=== PATIENT | male | born 1935 | race Caucasian/White ===

== ENCOUNTER 2017-04-04 09:40 | Emergency (ER) | payer MEDICARE, BC ==
[2017-04-04] MEDS ORDERED: Sodium Chloride 0.9% 10 ML Syringe FLUSH PRN (10:03)
[2017-04-04 10:24] VITALS: BP 162/81
[2017-04-04 10:42] LABS: CHLORIDE,CL 102 mmol/L (101-111); SODIUM,NA 140 mmol/L (135-145)
--- NOTE | 2017-04-04 11:01 | CR ---
Clinical history: 81-year-old male with left shoulder pain. 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 Cardiac pacemaker (leads intact) and sternotomy wires. Dense calcifications arch of the aorta. Normal cardiac silhouette without cephalization of vascular flow, signs of alveolar edema or dependen t pleural effusion. No lung mass, hilar lymphadenopathy or focal lobar pneumonia. No atelectasis/collapse. No pneumothora x. CONCLUSION: No acute cardiopulmonary abnormality. Arthritis.
--- NOTE | 2017-04-04 11:24 | CR ---
CLINICAL HISTORY: 81-year-old male with left shoulder pain. INTERPRETATION: Old healed fracture deformity mid left clavicle. Early reactive arthritic sclerosis i psilateral acromioclavicular joint. No sign of pathologic skeletal lesion, acute left shoulder fracture or glenohumeral dislocation (focal calcification at the insertion rotator cuff tendon lateral aspect of the humeral head). Left lung apex clear. Cardiac pacemaker.. CONCLUSION: Calcific rotator cuff tendinitis. Arthritis left AC joint and evidence of old healed frac ture deformity left clavicle.
--- NOTE | 2017-04-04 12:04 | EDM.PDOC ---
ED HPI GENERAL MEDICAL PROBLEM - General Chief Complaint: Upper Extremity Injury/Pain Stated Complaint: PAIN, LEFT SHOULDER AREA Time Seen by Provider: 04/04/17 10:25 Source of Information: Reports: Patient, RN, RN Notes Reviewed History Limitations: Reports: No Limitations - History of Present Illness INITIAL COMMENTS - FREE TEXT/NARRATIVE: Patient presents to the ER with c/o left shoulder pain that comes and goes. He denies any chest pain accompanying. He admits to a cardiac history including pacemaker placement and bypass x4. With the episodes of left shoulder pain, he denies sob, chest pain, diaphoresis, nausea or vomiting. Patient denies fever or chills. He does state that the pain comes and goes, and happens with turning the head or with movement. Son states that he did feel the patient was more weak than normal a few days ago, for which the patient attributes long aggressive days prior to that. Onset: Gradual Location: Reports: Upper Extremity, Left Quality: Reports: Sharp Improves with: Reports: None Worsens with: Reports: None Associated Symptoms: Reports: No Other Symptoms Left Shoulder Pain Score (Numeric/FACES): 5 - Related Data Allergies Allergy/AdvReac Type Severity Reaction Status Date / Time Iodinated Contrast- Oral and Allergy Cannot Verified 04/04/17 09:48 IV Dye Remember [Iodinated Contrast Media - IV Dye] niacin Allergy Cannot Verified 04/04/17 09:48 Remember Home Meds: Home Meds Digoxin [Digox] 250 mcg PO DAILY 12/29/14 [History] Glimepiride [Amaryl] 4 mg PO WITHBREAKFAST 12/29/14 [History] Metoprolol Succinate [Toprol XL] 100 mg PO DAILY 12/29/14 [History] Simvastatin [Zocor] 40 mg PO BEDTIME 12/29/14 [History] Warfarin [Coumadin] 5 mg PO DAILY 12/29/14 [History] metFORMIN [Glucophage] 1,000 mg PO BIDMEALS 12/29/14 [History] Finasteride [Proscar] 1 tab PO DAILY 03/16/16 [History] Tamsulosin [Flomax] 1 tab PO DAILY 03/16/16 [History] Aspirin [Halfprin] 1 tab PO DAILY 04/04/17 [History] Past Medical History HEENT History: Reports: Impaired Vision Cardiovascular History: Reports: Afib, CAD, High Cholesterol, Hypertension, Pacemaker Respiratory History: Reports: SOB Gastrointestinal History: Reports: GERD Genitourinary History: Reports: Chronic Renal Insuffiency, Prostate Disorder, Other (See Below) Other Genitourinary History: bladder spasms Musculoskeletal History: Reports: Osteoarthritis Neurological History: Reports: TIA Endocrine/Metabolic History: Reports: Diabetes, Type II Dermatologic History: Reports: Other (See Below) Other Dermatologic History: actinic keratosis - Infectious Disease History Infectious Disease History: Reports: Chicken Pox, Measles, Mumps - Past Surgical History HEENT Surgical History: Reports: Cataract Surgery Cardiovascular Surgical History: Reports: Coronary Artery Bypass Male Surgical History: Reports: Other (See Below) Other Male Surgeries/Procedures: cystourethroscopy, nephrolithiasis Social & Family History - Family History Family Medical History: Noncontributory - Tobacco Use Smoking Status *Q: Former Smoker Years of Tobacco use: 30 Used Tobacco, but Quit: Yes Month Tobacco Last Used: unknown Second Hand Smoke Exposure: No - Caffeine Use Caffeine Use: Reports: Coffee - Alcohol Use Days Per Week of Alcohol Use: 3 Number of Drinks Per Day: 3 Total Drinks Per Week: 9 - Recreational Drug Use Recreational Drug Use: No Review of Systems - Review of Systems Review Of Systems: ROS reveals no pertinent complaints other than HPI. Eyes: Reports: Glasses ED EXAM, GENERAL - Physical Exam Exam: See Below Exam Limited By: No Limitations General Appearance: Alert, WD/WN, No Apparent Distress Eye Exam: Bilateral Eye: Normal Inspection Ears: Normal External Exam, Normal Canal, Hearing Grossly Normal Nose: Normal Inspection, Normal Mucosa, No Blood Throat/Mouth: Normal Inspection, Normal Lips, Normal Teeth, Normal Gums, Normal Oropharynx, Normal Voice, No Airway Compromise Head: Atraumatic, Normocephalic Neck: Normal Inspection, Supple, Non-Tender, Full Range of Motion Respiratory/Chest: No Respiratory Distress, Lungs Clear, Normal Breath Sounds, No Accessory Muscle Use, Chest Non-Tender Cardiovascular: Normal Peripheral Pulses, No Edema, No Gallop, No JVD, No Murmur , No Rub Peripheral Pulses: 2+: Radial (L), Radial (R) GI/Abdominal: Normal Bowel Sounds, Soft, Non-Tender, No Organomegaly, No Distention, No Abnormal Bruit, No Mass, Pelvis Stable (Male) Exam: Deferred Rectal (Males) Exam: Deferred Back Exam: Normal Inspection, Full Range of Motion Extremities: Normal Inspection, Arm Pain (left), Limited Range of Motion Neurological: Alert, Oriented, Normal Cognition, Normal Gait, Normal Reflexes, No Motor/Sensory Deficits Psychiatric: Normal Affect, Normal Mood Skin Exam: Warm, Dry, Intact, Normal Color, No Rash Lymphatic: No Adenopathy EKG INTERPRETATION EKG Date: 04/04/17 Time: 10:03 Rhythm: A-Fib Course - Vital Signs Last Recorded V/S: Last Vital Signs Temp 97.4 F 04/04/17 10:22 Pulse 95 04/04/17 10:22 Resp 18 04/04/17 10:22 BP 162/81 H 04/04/17 10:22 Pulse Ox 97 04/04/17 10:22 - Orders/Labs/Meds Orders: Active Orders 24 hr Category Date Time Status EKG Documentation Completion [RC] STAT Care 04/04/17 10:04 Active Peripheral IV Care [RC] . DIRECTED Care 04/04/17 10:05 Active Peripheral IV Insertion Adult [OM.PC] Stat Oth 04/04/17 10:03 Ordered Labs: Laboratory Tests 04/04/17 04/04/17 04/04/17 Range/Units 10:13 10:13 10:13 WBC 6.9 (5.0-10.0) 10^3/uL RBC 5.14 (4.6-6.2) 10^6/uL Hgb 14.8 (14.0-18.0) g/dL Hct 45.1 (40.0-54.0) % MCV 87.7 (80-100) fL MCH 28.8 (27.0-34.0) pg MCHC 32.8 L (33.0-35.0) g/dL Plt Count 169 (150-450) 10^3/uL Neut % (Auto) 63.2 (42.2-75.2) % Lymph % (Auto) 23.5 (20.5-50.1) % [place] % (Auto) 10.7 H (2-8) % Eos % (Auto) 1.7 (1.0-3.0) % Baso % (Auto) 0.9 (0.0-1.0) % Sodium 140 (135-145) mmol/L Potassium 4.1 (3.6-5.0) mmol/L Chloride 102 (101-111) mmol/L Carbon Dioxide 26.0 (21.0-31.0) mmol/L Anion Gap 16.1 BUN 15 (7-18) mg/dL Creatinine 1.0 (0.6-1.3) mg/dL Est Cr Clr Drug Dosing 65.47 mL/min Estimated GFR (MDRD) > 60 BUN/Creatinine Ratio 15.00 Glucose 169 H (74-105) mg/dL Calcium 9.3 (8.4-10.2) mg/dl Total Bilirubin 0.7 (0.2-1.0) mg/dL AST 23 (10-42) IU/L ALT 19 (10-60) IU/L Alkaline Phosphatase 56 (42-121) IU/L Troponin I < 0.02 (0.00-0.02) ng/ml Total Protein 7.1 (6.7-8.2) g/dl Albumin 4.3 (3.2-5.5) g/dl Globulin 2.8 Albumin/Globulin Ratio 1.54 TSH, Ultra Sensitive 2.02 (0.45-5.33) uIu/mL Meds: Medications Discontinued Medications Generic Name Dose Route Start Last Admin Trade Name Freq PRN Reason Stop Dose Admin Sodium Chloride 10 ml 04/04/17 10:03 04/04/17 10:22 Saline Flush FLUSH 10 ml ASDIRECTED PRN Administration Keep Vein Open - Radiology Interpretation Free Text/Narrative:: Left shoulder xray: Calcific rotator cuff tendonitis. Arthritis L AC joint and evidence of old healed fx deformity left clavicle. Chest xray: no acute findings See rad report Departure - Departure Time of Disposition: 12:09 Disposition: Home, Self-Care 01 Condition: Good Clinical Impression: Left shoulder tendinitis, Other specified arthritis, left shoulder - Discharge Information Instructions: Shoulder Pain, [id number], Tendinitis, [id number] Referrals: Katherine Montoya PA [Primary Care Provider] - Forms: ED Department Discharge Additional Instructions: Follow up with Katherine Montoya NP at [facility]. MRI may be needed. - My Orders Last 24 Hours: My Active Orders 04/04/17 10:03 Peripheral IV Insertion Adult [OM.PC] Stat 04/04/17 10:04 EKG Documentation Completion [RC] STAT 04/04/17 10:05 Peripheral IV Care [RC] . DIRECTED - Assessment/Plan Last 24 Hours: My Active Orders 04/04/17 10:03 Peripheral IV Insertion Adult [OM.PC] Stat 04/04/17 10:04 EKG Documentation Completion [RC] STAT 04/04/17 10:05 Peripheral IV Care [RC] . DIRECTED
--- NOTE | 2017-04-26 13:17 | EKG ---
04/04/2017 - JASON MAYFIELD - TIME: 1003 FINDINGS: EKG shows atrial fibrillation with a heart rate of 86 per minute. Multiple premature ventricular and supraventricular complexes. [facility] /[id number]
== END 2017-04-04 12:21 | disposition home or self-care (01) ==
LOC: DL.ED 09:40
DX: M75.32 Calcific tendinitis of left shoulder (principal); M13.812 Other specified arthritis, left shoulder; I48.91 Unspecified atrial fibrillation; I25.10 Atherosclerotic heart disease of native coronary artery without angina pectoris; K21.9 Gastro-esophageal reflux disease without esophagitis; N18.9 Chronic kidney disease, unspecified; E11.22 Type 2 diabetes mellitus with diabetic chronic kidney disease; I12.9 Hypertensive chronic kidney disease with stage 1 through stage 4 chronic kidney disease, or unspecified chronic kidney disease; M19.90 Unspecified osteoarthritis, unspecified site; Z91.041 Radiographic dye allergy status; Z88.8 Allergy status to other drugs, medicaments and biological substances; Z79.899 Other long term (current) drug therapy; Z79.82 Long term (current) use of aspirin; Z79.01 Long term (current) use of anticoagulants; Z95.1 Presence of aortocoronary bypass graft; Z98.49 Cataract extraction status, unspecified eye; Z87.891 Personal history of nicotine dependence
CPT/HCPCS: 36415; 71020; 73030; 80053; 84443; 84484; 85025; 93005; 93010; 99284; J7050

== ENCOUNTER 2017-06-09 08:20 | Emergency (ER) | payer MEDICARE, BC ==
--- NOTE | 2017-06-09 08:23 | EDM.PDOC ---
ED HPI GENERAL MEDICAL PROBLEM - General Chief Complaint: ENT Problem Stated Complaint: NOSE BLEED Time Seen by Provider: 06/09/17 08:34 Source of Information: Reports: Patient, RN, RN Notes Reviewed - History of Present Illness INITIAL COMMENTS - FREE TEXT/NARRATIVE: Pt presents to the ER with c/o a nosebleed since 0700 today. He states he was laying in bed and felt the blood trickling down his nose. He denies blowing/ picking the nose. He states he is on coumadin and last INR was drawn 05/25/17 and was 2.5. He states he had a nosebleed about 3 days ago, but that stopped without problems. Onset: Today, Sudden Onset Date: 06/09/17 Onset Time: 07:00 - Related Data Allergies Allergy/AdvReac Type Severity Reaction Status Date / Time Iodinated Contrast- Oral and Allergy Cannot Verified 04/04/17 09:48 IV Dye Remember [Iodinated Contrast Media - IV Dye] niacin Allergy Cannot Verified 04/04/17 09:48 Remember Home Meds: Home Meds Digoxin [Digox] 250 mcg PO DAILY 12/29/14 [History] Glimepiride [Amaryl] 4 mg PO WITHBREAKFAST 12/29/14 [History] Metoprolol Succinate [Toprol XL] 100 mg PO DAILY 12/29/14 [History] Simvastatin [Zocor] 20 mg PO BEDTIME 12/29/14 [History] Warfarin [Coumadin] 2.5 mg PO DAILY 12/29/14 [History] metFORMIN [Glucophage] 500 mg PO BIDMEALS 12/29/14 [History] Finasteride [Proscar] 1 tab PO DAILY 03/16/16 [History] Tamsulosin [Flomax] 1 tab PO BEDTIME 03/16/16 [History] Aspirin [Halfprin] 1 tab PO DAILY 04/04/17 [History] Glimepiride [Amaryl] 1 mg PO DAILY 06/09/17 [History] Past Medical History HEENT History: Reports: Impaired Vision Cardiovascular History: Reports: Afib, CAD, High Cholesterol, Hypertension, Pacemaker Respiratory History: Reports: SOB Gastrointestinal History: Reports: GERD Genitourinary History: Reports: Chronic Renal Insuffiency, Prostate Disorder, Other (See Below) Other Genitourinary History: bladder spasms Musculoskeletal History: Reports: Osteoarthritis Neurological History: Reports: TIA Endocrine/Metabolic History: Reports: Diabetes, Type II Dermatologic History: Reports: Other (See Below) Other Dermatologic History: actinic keratosis - Infectious Disease History Infectious Disease History: Reports: Chicken Pox, Measles, Mumps - Past Surgical History HEENT Surgical History: Reports: Cataract Surgery Cardiovascular Surgical History: Reports: Coronary Artery Bypass Male Surgical History: Reports: Other (See Below) Other Male Surgeries/Procedures: cystourethroscopy, nephrolithiasis Social & Family History - Family History Family Medical History: Noncontributory - Tobacco Use Smoking Status *Q: Former Smoker Years of Tobacco use: 30 Used Tobacco, but Quit: Yes Month Tobacco Last Used: unknown Second Hand Smoke Exposure: No - Caffeine Use Caffeine Use: Reports: Coffee - Alcohol Use Days Per Week of Alcohol Use: 3 Number of Drinks Per Day: 3 Total Drinks Per Week: 9 - Recreational Drug Use Recreational Drug Use: No ED ROS ENT - Review of Systems Review Of Systems: ROS reveals no pertinent complaints other than HPI. ED EXAM, ENT - Physical Exam Exam: See Below Exam Limited By: No Limitations General Appearance: Alert, WD/WN, No Apparent Distress Eye Exam: Bilateral Eye: EOMI, Normal Inspection Ears: Normal External Exam, Hearing Grossly Normal Nose: Active Bleeding (right nostril\), Dried Blood, Injected Turbinates. No: Normal Mucousa, No Blood Mouth/Throat: Normal Inspection Head: Atraumatic, Normocephalic Neck: Normal Inspection, Supple, Non-Tender, Full Range of Motion Respiratory/Chest: No Respiratory Distress, Lungs Clear, Normal Breath Sounds, No Accessory Muscle Use, Chest Non-Tender Cardiovascular: Normal Peripheral Pulses, No Edema, No Gallop, No JVD, No Murmur , No Rub, Irregularly Irregular GI/Abdominal: Normal Bowel Sounds, Soft, Non-Tender (Male) Exam: Deferred Rectal (Males) Exam: Deferred Back: Normal Inspection, Full Range of Motion Extremities: Normal Inspection, Normal Range of Motion, Non-Tender, No Pedal Edema, Normal Capillary Refill Neurological: Alert, Oriented, Normal Cognition, Normal Gait, No Motor/Sensory Deficits Psychiatric: Normal Affect, Normal Mood Skin: Warm, Dry, Intact, Normal Color, No Rash Lymphatic: No Adenopathy Course - Vital Signs Last Recorded V/S: Last Vital Signs Temp 98.4 F 06/09/17 08:34 Pulse 98 06/09/17 08:34 Resp 16 06/09/17 08:34 BP 171/81 H 06/09/17 08:34 Pulse Ox 97 06/09/17 08:34 - Orders/Labs/Meds Labs: Laboratory Tests 06/09/17 06/09/17 06/09/17 Range/Units 08:40 08:40 08:40 WBC 6.7 (5.0-10.0) 10^3/uL RBC 5.07 (4.6-6.2) 10^6/uL Hgb 14.5 (14.0-18.0) g/dL Hct 44.2 (40.0-54.0) % MCV 87.2 (80-100) fL MCH 28.6 (27.0-34.0) pg MCHC 32.8 L (33.0-35.0) g/dL Plt Count 135 L (150-450) 10^3/uL Neut % (Auto) 62.4 (42.2-75.2) % Lymph % (Auto) 21.8 (20.5-50.1) % [place] % (Auto) 12.2 H (2-8) % Eos % (Auto) 3.0 (1.0-3.0) % Baso % (Auto) 0.6 (0.0-1.0) % PT 17.6 H D (9.0-12.0) SEC INR 1.7 H (0.9-1.2) Sodium 139 (135-145) mmol/L Potassium 4.0 (3.6-5.0) mmol/L Chloride 101 (101-111) mmol/L Carbon Dioxide 28.0 (21.0-31.0) mmol/L Anion Gap 14.0 BUN 13 (7-18) mg/dL Creatinine 1.0 (0.6-1.3) mg/dL Est Cr Clr Drug Dosing 63.59 mL/min Estimated GFR (MDRD) > 60 BUN/Creatinine Ratio 13.00 Glucose 154 H (74-105) mg/dL Calcium 9.3 (8.4-10.2) mg/dl Total Bilirubin 0.5 (0.2-1.0) mg/dL AST 19 (10-42) IU/L ALT 14 (10-60) IU/L Alkaline Phosphatase 58 (42-121) IU/L Total Protein 7.2 (6.7-8.2) g/dl Albumin 4.2 (3.2-5.5) g/dl Globulin 3.0 Albumin/Globulin Ratio 1.40 Meds: Medications Discontinued Medications Generic Name Dose Route Start Last Admin Trade Name [place] PRN Reason Stop Dose Admin Lidocaine/Epinephrine 20 ml 06/09/17 09:17 06/09/17 09:22 Xylocaine 1% With Epinephrine 1:100,000 INJECT 06/09/17 09:18 20 ml ONETIME ONE Administration Oxymetazoline HCl 1 ml 06/09/17 09:17 06/09/17 09:22 Afrin Original 0.05% Nasal [place] KAYLA 06/09/17 09:18 2 spray ONETIME ONE Administration Departure - Departure Time of Disposition: 09:38 Disposition: Home, Self-Care 01 Condition: Good Clinical Impression: Epistaxis - Discharge Information Instructions: Nosebleed, [id number] Referrals: Katherine Montoya PA [Primary Care Provider] - Forms: ED Department Discharge Additional Instructions: Make an appointment to see Katherine Montoya NP Call Cardiology today to discuss your INR today, nosebleeds. INR today was 1.7 RX: Afrin with lidocaine/epi 1%: 2 sprays to the bleeding nostril as needed. May use up to 4 times per day. Small amounts of vaseline to the nares to keep moist. Begin using your humidifier in the home.
[2017-06-09 08:36] VITALS: BP 171/81
[2017-06-09 09:07] LABS: CHLORIDE,CL 101 mmol/L (101-111); SODIUM,NA 139 mmol/L (135-145)
[2017-06-09] MEDS ORDERED: Lidocaine 1% with EPINEPHrine 1:100,000 20 ML MDV INJECT ONE (09:17)
[2017-06-09] MEDS ORDERED: Oxymetazoline 0.05% Nasal Spray 15 ML Bottle NAS ONE (09:17)
[2017-06-09] MEDS ORDERED: Silver Nitrate Applicator Each TOP ONE (09:58)
== END 2017-06-09 11:51 | disposition home or self-care (01) ==
LOC: DL.ED 08:20
DX: R04.0 Epistaxis (principal); I12.9 Hypertensive chronic kidney disease with stage 1 through stage 4 chronic kidney disease, or unspecified chronic kidney disease; E11.22 Type 2 diabetes mellitus with diabetic chronic kidney disease; N18.9 Chronic kidney disease, unspecified; E78.00 Pure hypercholesterolemia, unspecified; I25.10 Atherosclerotic heart disease of native coronary artery without angina pectoris; Z87.891 Personal history of nicotine dependence; Z79.82 Long term (current) use of aspirin; Z79.01 Long term (current) use of anticoagulants; Z79.899 Other long term (current) drug therapy; Z79.84 Long term (current) use of oral hypoglycemic drugs; Z91.041 Radiographic dye allergy status; Z88.8 Allergy status to other drugs, medicaments and biological substances
CPT/HCPCS: 36415; 80053; 85025; 85610; 99283; A9270

== ENCOUNTER 2017-11-27 00:35 | Emergency (ER) | payer MEDICARE, BC ==
[2017-11-27] MEDS ORDERED: Lidocaine 1% 30 ML SDV INJECT ONE (00:51)
--- NOTE | 2017-11-27 01:07 | EDM.PDOC ---
ED HPI GENERAL MEDICAL PROBLEM - General Chief Complaint: Trauma Stated Complaint: FALL CUT ON HEAD BLEEDING Time Seen by Provider: 11/27/17 01:02 Source of Information: Reports: Patient, Family History Limitations: Reports: No Limitations - History of Present Illness INITIAL COMMENTS - FREE TEXT/NARRATIVE: pt states got up to go to bathroom and tripped hitting head on edge of door way. denies LOC but did feel little dazed for a moment and bit unsteady, denies N/V only pain on forehead. states did fall to floor then got back up by self and called [id number] who states pt was conscious when arrived and seemed ok. denies seeing him unsteady then drove to ER. - Related Data Allergies Allergy/AdvReac Type Severity Reaction Status Date / Time Iodinated Contrast- Oral and Allergy Cannot Verified 11/27/17 00:50 IV Dye Remember [Iodinated Contrast Media - IV Dye] niacin Allergy Cannot Verified 11/27/17 00:50 Remember Home Meds: Home Meds Digoxin [Digox] 250 mcg PO DAILY 12/29/14 [History] Glimepiride [Amaryl] 4 mg PO WITHBREAKFAST 12/29/14 [History] Metoprolol Succinate [Toprol XL] 100 mg PO DAILY 12/29/14 [History] Simvastatin [Zocor] 20 mg PO BEDTIME 12/29/14 [History] Warfarin [Coumadin] 2.5 mg PO DAILY 12/29/14 [History] metFORMIN [Glucophage] 500 mg PO BIDMEALS 12/29/14 [History] Finasteride [Proscar] 1 tab PO DAILY 03/16/16 [History] Tamsulosin [Flomax] 1 tab PO BEDTIME 03/16/16 [History] Aspirin [Halfprin] 1 tab PO DAILY 04/04/17 [History] Glimepiride [Amaryl] 1 mg PO DAILY 06/09/17 [History] Past Medical History HEENT History: Reports: Impaired Vision Cardiovascular History: Reports: Afib, CAD, High Cholesterol, Hypertension, Pacemaker Respiratory History: Reports: SOB Gastrointestinal History: Reports: GERD Genitourinary History: Reports: Chronic Renal Insuffiency, Prostate Disorder, Other (See Below) Other Genitourinary History: bladder spasms Musculoskeletal History: Reports: Osteoarthritis Neurological History: Reports: TIA Endocrine/Metabolic History: Reports: Diabetes, Type II Dermatologic History: Reports: Other (See Below) Other Dermatologic History: actinic keratosis - Infectious Disease History Infectious Disease History: Reports: Chicken Pox, Measles, Mumps - Past Surgical History HEENT Surgical History: Reports: Cataract Surgery Cardiovascular Surgical History: Reports: Coronary Artery Bypass Male Surgical History: Reports: Other (See Below) Other Male Surgeries/Procedures: cystourethroscopy, nephrolithiasis Social & Family History - Family History Family Medical History: Noncontributory - Caffeine Use Caffeine Use: Reports: Coffee Review of Systems - Review of Systems Review Of Systems: ROS reveals no pertinent complaints other than HPI. ED EXAM, GENERAL - Physical Exam Exam: See Below Exam Limited By: No Limitations General Appearance: Alert, WD/WN, Mild Distress, Other (headache) Eye Exam: Bilateral Eye: PERRL (pupils ER @ 4mm) Ears: Hearing Grossly Normal Throat/Mouth: Normal Voice, No Airway Compromise Head: Other (3" forehead lac. no O/B.) Neck: Non-Tender, Full Range of Motion, Other (c/o feeling litte stiff.) Respiratory/Chest: No Respiratory Distress Cardiovascular: Regular Rate, Rhythm GI/Abdominal: Soft, Non-Tender Neurological: Alert, Oriented, Normal Cognition, Normal Gait, No Motor/Sensory Deficits Psychiatric: Flat Affect Skin Exam: Warm, Dry, Normal Color Lymphatic: No Adenopathy ED TRAUMA PROCEDURES - Laceration/Wound Repair Forehead Lac/Wound Length In cm: 6 (mid forehead) Appearance: Subcutaneous, Linear, Clean Anesthetic Type: Local Local Anesthesia - Lidocaine (Xylocaine): 1% Plain Local Anesthetic Volume: 5cc Skin Prep: Chlorhexidine (Hibiciens) Exploration/Debridement/Repair: Wound Explored, No Foreign Material Found Closed With: Sutures Suture Size: 3-0 Suture Type: Nylon, Interrupted Sterile Dressing Applied: None Tetanus Status Addressed: Yes Complications: No Course - Orders/Labs/Meds Labs: Laboratory Tests 11/27/17 11/27/17 11/27/17 Range/Units 00:40 00:40 00:40 WBC 9.8 (5.0-10.0) 10^3/uL RBC 5.09 (4.6-6.2) 10^6/uL Hgb 14.2 (14.0-18.0) g/dL Hct 43.7 (40.0-54.0) % MCV 85.9 (80-100) fL MCH 27.9 (27.0-34.0) pg MCHC 32.5 L (33.0-35.0) g/dL Plt Count 179 (150-450) 10^3/uL Neut % (Auto) 56.4 (42.2-75.2) % Lymph % (Auto) 30.3 (20.5-50.1) % [place] % (Auto) 9.8 H (2-8) % Eos % (Auto) 3.0 (1.0-3.0) % Baso % (Auto) 0.5 (0.0-1.0) % PT 22.0 H (9.0-12.0) SEC INR 2.3 H (0.9-1.2) Sodium 137 (135-145) mmol/L Potassium 3.9 (3.6-5.0) mmol/L Chloride 101 (101-111) mmol/L Carbon Dioxide 28.0 (21.0-31.0) mmol/L Anion Gap 11.9 BUN 13 (7-18) mg/dL Creatinine 1.1 (0.6-1.3) mg/dL Est Cr Clr Drug Dosing TNP Estimated GFR (MDRD) > 60 BUN/Creatinine Ratio 11.81 Glucose 119 H (74-105) mg/dL Calcium 9.5 (8.4-10.2) mg/dl Total Bilirubin 0.3 (0.2-1.0) mg/dL AST 24 (10-42) IU/L ALT 18 (10-60) IU/L Alkaline Phosphatase 62 (42-121) IU/L Total Protein 7.0 (6.7-8.2) g/dl Albumin 4.0 (3.2-5.5) g/dl Globulin 3.0 Albumin/Globulin Ratio 1.33 Meds: Medications Discontinued Medications Generic Name Dose Route Start Last Admin Trade Name Freq PRN Reason Stop Dose Admin Lidocaine HCl 30 ml 11/27/17 00:51 11/27/17 00:55 Xylocaine-Mpf 1% INJECT 11/27/17 00:52 30 ml ONETIME ONE Administration - Re-Assessments/Exams Free Text/Narrative Re-Assessment/Exam: 11/27/17 01:33 results discussed with pt & family. pt has no c/o and feels fine. Departure - Departure Time of Disposition: 01:34 Disposition: Home, Self-Care 01 Clinical Impression: Concussion Qualifiers: Encounter type: initial encounter Loss of consciousness presence/duration: without LOC Qualified Code(s): S06.0X0A - Concussion without loss of consciousness, initial encounter Laceration of forehead without complication Qualifiers: Encounter type: initial encounter Qualified Code(s): S01.81XA - Laceration without foreign body of other part of head, initial encounter - Discharge Information Instructions: Head Injury, Adult, [id number] Referrals: Katherine Montoya PA [Primary Care Provider] - Forms: ED Department Discharge Additional Instructions: 1) keep wound clean dry 2) suture removal 10 days 3) wound check if looks infected 4) must return if thee is any change or concern 5) take tyelnol as needed for headache
[2017-11-27 01:09] LABS: CHLORIDE,CL 101 mmol/L (101-111); SODIUM,NA 137 mmol/L (135-145)
== END 2017-11-27 01:43 | disposition home or self-care (01) ==
LOC: EEVIPCON 00:35 → DL.ED 00:35
DX: S06.0X0A Concussion without loss of consciousness, initial encounter (principal); S01.81XA Laceration without foreign body of other part of head, initial encounter; E78.00 Pure hypercholesterolemia, unspecified; I10 Essential (primary) hypertension; N18.9 Chronic kidney disease, unspecified; E11.22 Type 2 diabetes mellitus with diabetic chronic kidney disease; Z91.041 Radiographic dye allergy status; Z79.899 Other long term (current) drug therapy; Z79.84 Long term (current) use of oral hypoglycemic drugs; Z79.01 Long term (current) use of anticoagulants; Z79.82 Long term (current) use of aspirin; W01.118A Fall on same level from slipping, tripping and stumbling with subsequent striking against other sharp object, initial encounter
CPT/HCPCS: 12014; 36415; 70450; 72125; 80053; 85025; 85610; 99282; 99284

== ENCOUNTER 2017-12-06 07:31 | Inpatient (IN) | payer MEDICARE, BC ==
--- NOTE | 2017-12-06 08:25 | EDM.PDOC ---
ED HPI GENERAL MEDICAL PROBLEM - General Chief Complaint: General Stated Complaint: WEAK Time Seen by Provider: 12/06/17 07:45 Source of Information: Reports: Patient History Limitations: Reports: No Limitations - History of Present Illness INITIAL COMMENTS - FREE TEXT/NARRATIVE: This 82 yo male patient reports to the ED with a 2 day history of increased weakness and shortness of breath. The patient reports that he fell about 9 days ago, but did not start having symptoms until yesterday. The patient reports some intermittent chest pains, but currently has no chest pain. The patient reports his chest pain has been in the lower ribs. The patient reports he has been having some coughing, but the coughing resolves after taking some cough medication. Onset Date: 12/05/17 Duration: Day(s): (2), Constant, Getting Worse Location: Reports: Chest Quality: Reports: Other Severity: Moderate Improves with: Reports: Rest Worsens with: Reports: Movement Associated Symptoms: Reports: Shortness of Breath Chest Pain Score (Numeric/FACES): 2 - Related Data Allergies Allergy/AdvReac Type Severity Reaction Status Date / Time Iodinated Contrast- Oral and Allergy Cannot Verified 12/06/17 07:53 IV Dye Remember [Iodinated Contrast Media - IV Dye] niacin Allergy Cannot Verified 12/06/17 07:53 Remember Home Meds: Home Meds Digoxin [Digox] 250 mcg PO DAILY 12/29/14 [History] Glimepiride [Amaryl] 4 mg PO WITHBREAKFAST 12/29/14 [History] Metoprolol Succinate [Toprol XL] 100 mg PO DAILY 12/29/14 [History] Simvastatin [Zocor] 20 mg PO BEDTIME 12/29/14 [History] Warfarin [Coumadin] 2.5 mg PO DAILY 12/29/14 [History] metFORMIN [Glucophage] 500 mg PO BIDMEALS 12/29/14 [History] Finasteride [Proscar] 1 tab PO DAILY 03/16/16 [History] Tamsulosin [Flomax] 1 tab PO BEDTIME 03/16/16 [History] Aspirin [Halfprin] 1 tab PO DAILY 04/04/17 [History] Glimepiride [Amaryl] 1 mg PO DAILY 06/09/17 [History] Amiodarone [Cordarone] 200 mg PO BID 05/30/18 [History] Past Medical History HEENT History: Reports: Impaired Vision Cardiovascular History: Reports: Afib, CAD, High Cholesterol, Hypertension, Pacemaker Respiratory History: Reports: SOB Gastrointestinal History: Reports: GERD Genitourinary History: Reports: Chronic Renal Insuffiency, Prostate Disorder, Other (See Below) Other Genitourinary History: bladder spasms Musculoskeletal History: Reports: Osteoarthritis Neurological History: Reports: TIA Endocrine/Metabolic History: Reports: Diabetes, Type II Dermatologic History: Reports: Other (See Below) Other Dermatologic History: actinic keratosis - Infectious Disease History Infectious Disease History: Reports: Chicken Pox, Measles, Mumps - Past Surgical History HEENT Surgical History: Reports: Cataract Surgery Cardiovascular Surgical History: Reports: Coronary Artery Bypass Male Surgical History: Reports: Other (See Below) Other Male Surgeries/Procedures: cystourethroscopy, nephrolithiasis Social & Family History - Family History Family Medical History: Noncontributory - Caffeine Use Caffeine Use: Reports: Coffee ED ROS GENERAL - Review of Systems Review Of Systems: ROS reveals no pertinent complaints other than HPI. ED EXAM, GENERAL - Physical Exam Exam: See Below Exam Limited By: No Limitations General Appearance: Alert, WD/WN, Moderate Distress Eye Exam: Bilateral Eye: EOMI, Normal Inspection, PERRL Ears: Normal External Exam, Normal Canal, Hearing Grossly Normal, Normal TMs Nose: Normal Inspection, Normal Mucosa, No Blood Throat/Mouth: Normal Inspection, Normal Lips, Normal Teeth, Normal Gums, Normal Oropharynx, Normal Voice, No Airway Compromise Head: Atraumatic, Normocephalic Neck: Normal Inspection, Supple, Non-Tender, Full Range of Motion Respiratory/Chest: Lungs Clear, No Accessory Muscle Use, Chest Non-Tender, Decreased Breath Sounds, Rhonchi Cardiovascular: Normal Peripheral Pulses, Regular Rate, Rhythm, No Edema, No Gallop, No JVD, No Murmur, No Rub GI/Abdominal: Normal Bowel Sounds, Soft, Non-Tender, No Organomegaly, No Distention, No Abnormal Bruit, No Mass (Male) Exam: Deferred Rectal (Males) Exam: Deferred Back Exam: Normal Inspection, Full Range of Motion, NT Extremities: Normal Inspection, Normal Range of Motion, Non-Tender, Normal Capillary Refill, No Pedal Edema Neurological: Alert, Oriented, CN II-XII Intact, Normal Cognition, Normal Gait, Normal Reflexes, No Motor/Sensory Deficits Psychiatric: Normal Affect, Normal Mood Skin Exam: Warm, Dry, Intact, Normal Color, No Rash Lymphatic: No Adenopathy Course - Vital Signs Last Recorded V/S: Last Vital Signs Temp 36.0 C 12/06/17 07:38 Pulse 74 12/06/17 07:38 Resp 18 12/06/17 07:38 BP 191/74 H 12/06/17 07:38 Pulse Ox 79 L 12/06/17 07:38 - Orders/Labs/Meds Orders: Active Orders 24 hr Category Date Time Status EKG Documentation Completion [RC] URGENT Care 12/06/17 07:39 Active UA W/MICROSCOPIC [URIN] Stat Lab 12/06/17 07:39 Ordered Labs: Laboratory Tests 12/06/17 12/06/17 12/06/17 Range/Units 07:54 07:54 07:54 WBC 10.7 H (5.0-10.0) 10^3/uL RBC 4.94 (4.6-6.2) 10^6/uL Hgb 13.8 L (14.0-18.0) g/dL Hct 43.5 (40.0-54.0) % MCV 88.1 (80-100) fL MCH 27.9 (27.0-34.0) pg MCHC 31.7 L (33.0-35.0) g/dL Plt Count 183 (150-450) 10^3/uL Neut % (Auto) 80.7 H (42.2-75.2) % Lymph % (Auto) 10.3 L (20.5-50.1) % [place] % (Auto) 8.6 H (2-8) % Eos % (Auto) 0.2 L (1.0-3.0) % Baso % (Auto) 0.2 (0.0-1.0) % PT (9.0-12.0) SEC INR (0.9-1.2) D-Dimer, Quantitative (0-400) ng/mL Sodium 135 (135-145) mmol/L Potassium 4.4 (3.6-5.0) mmol/L Chloride 100 L (101-111) mmol/L Carbon Dioxide 27.0 (21.0-31.0) mmol/L Anion Gap 12.4 BUN 16 (7-18) mg/dL Creatinine 1.0 (0.6-1.3) mg/dL Est Cr Clr Drug Dosing 64.36 mL/min Estimated GFR (MDRD) > 60 BUN/Creatinine Ratio 16.00 Glucose 246 H (74-105) mg/dL Calcium 9.2 (8.4-10.2) mg/dl Total Bilirubin 1.2 H (0.2-1.0) mg/dL AST 26 (10-42) IU/L ALT 23 (10-60) IU/L Alkaline Phosphatase 65 (42-121) IU/L Troponin I < 0.02 (0.00-0.02) ng/ml B-Natriuretic Peptide 287 H (0-100) pg/ml Total Protein 7.0 (6.7-8.2) g/dl Albumin 4.0 (3.2-5.5) g/dl Globulin 3.0 Albumin/Globulin Ratio 1.33 12/06/17 12/06/17 Range/Units 07:54 07:54 WBC (5.0-10.0) 10^3/uL RBC (4.6-6.2) 10^6/uL Hgb (14.0-18.0) g/dL Hct (40.0-54.0) % MCV (80-100) fL MCH (27.0-34.0) pg MCHC (33.0-35.0) g/dL Plt Count (150-450) 10^3/uL Neut % (Auto) (42.2-75.2) % Lymph % (Auto) (20.5-50.1) % [place] % (Auto) (2-8) % Eos % (Auto) (1.0-3.0) % Baso % (Auto) (0.0-1.0) % PT 44.9 H D (9.0-12.0) SEC INR 4.7 H (0.9-1.2) D-Dimer, Quantitative 518 H (0-400) ng/mL Sodium (135-145) mmol/L Potassium (3.6-5.0) mmol/L Chloride (101-111) mmol/L Carbon Dioxide (21.0-31.0) mmol/L Anion Gap BUN (7-18) mg/dL Creatinine (0.6-1.3) mg/dL Est Cr Clr Drug Dosing mL/min Estimated GFR (MDRD) BUN/Creatinine Ratio Glucose (74-105) mg/dL Calcium (8.4-10.2) mg/dl Total Bilirubin (0.2-1.0) mg/dL AST (10-42) IU/L ALT (10-60) IU/L Alkaline Phosphatase (42-121) IU/L Troponin I (0.00-0.02) ng/ml B-Natriuretic Peptide (0-100) pg/ml Total Protein (6.7-8.2) g/dl Albumin (3.2-5.5) g/dl Globulin Albumin/Globulin Ratio Departure - Departure Time of Disposition: 09:19 Disposition: Admitted As Inpatient 66 Condition: Fair Clinical Impression: Elevated INR CHF (congestive heart failure) Qualifiers: Heart failure type: unspecified Heart failure chronicity: acute Qualified Code( s): I50.9 - Heart failure, unspecified - Discharge Information Referrals: Katherine Montoya PA [Primary Care Provider] - Forms: ED Department Discharge Care Plan Goals: Discussed the examination, history, lab, EKG and x-ray results with Dr. Paige. Dr. Paige accepted the patient for continued evaluation and management as an inpatient at [facility]. - My Orders Last 24 Hours: My Active Orders 12/06/17 07:39 EKG Documentation Completion [RC] URGENT UA W/MICROSCOPIC [URIN] Stat - Assessment/Plan Last 24 Hours: My Active Orders 12/06/17 07:39 EKG Documentation Completion [RC] URGENT UA W/MICROSCOPIC [URIN] Stat
[2017-12-06 08:32] LABS: CHLORIDE,CL 100 mmol/L (101-111); SODIUM,NA 135 mmol/L (135-145)
--- NOTE | 2017-12-06 08:49 | CR ---
Clinical history: 82-year-old male with history atrial fibrillation and now shortness of breath. Abno rmally elevated BNP. Normal WBC. Interpretation: Cardiac silhouette is normal and unchanged except for technique and compared to the P A film of March 2017 where there is generalized new pulmonary venous congestion with cephalizatio n suggesting mild cardiovascular decompensation. No alveolar edema or dependent pleural fluid accumulation. Cardiac pacemaker leads intact this patien t with sternotomy wires. No new lung mass, hilar lymphadenopathy or focal lobar pneumonia. CONCLUSION: Early CHF.
[2017-12-06] MEDS: Amiodarone 200 MG Tab PO SCH ×2 (12:34→21:30)
[2017-12-06] MEDS: Finasteride 5 MG Tab PO SCH (12:34)
[2017-12-06] MEDS: Tamsulosin 0.4 MG Cap.ER PO SCH (12:34)
[2017-12-06] MEDS: amLODIPine 5 MG Tab PO SCH (12:36)
[2017-12-06] MEDS: Aspirin 81 MG Tab.EC PO SCH (12:37)
[2017-12-06] MEDS: Insulin Aspart 100 Units/ML 3 ML Pen SUBCUT SCH ×2 (12:37→17:45)
[2017-12-06] MEDS: Furosemide 40 MG/4 ML VIAL IVPUSH SCH ×2 (12:39→17:47)
[2017-12-06] MEDS: Sodium Chloride 0.9% 10 ML Syringe FLUSH PRN ×3 (12:39→21:36)
--- NOTE | 2017-12-06 15:42 | PCM.HP ---
H&P History of Present Illness - General Date of Service: 12/06/17 Admit Problem/Dx: Admission Diagnosis/Problem Admission Diagnosis/Problem Acute respiratory failure Source of Information: Patient History Limitations: Reports: No Limitations - History of Present Illness Initial Comments - Free Text/Narative: 82-year-old male with past medical history of hypertension, type 2 diabetes and oral medication, atrial fibrillation on chronic anticoagulation, benign prostatic hyperplasia, who presents with shortness of breath, dizziness. The patient developed sudden onset of shortness of breath this morning. He also reports lightheadedness. He had no chest pain, no palpitations, no abdominal pain, no urinary symptoms. In the ED, his systolic blood pressure was in the 190s. He was also hypoxic in the low 70s and high 80s on room air. Chest x-ray showed pulmonary congestion. BNP was mildly elevated. The patient's blood pressure improved, but the time he got to the general medical floor, his systolic blood pressure was in the 150s Onset of Symptoms: Reports: Today Associated Symptoms: Reports: Shortness of Breath Chest Pain Score (Numeric/FACES): 2 - Related Data Allergies/Adverse Reactions: Allergies Allergy/AdvReac Type Severity Reaction Status Date / Time Iodinated Contrast- Oral and Allergy Cannot Verified 12/06/17 10:06 IV Dye Remember [Iodinated Contrast Media - IV Dye] niacin Allergy Cannot Verified 12/06/17 10:06 Remember Home Medications: Home Meds Glimepiride [Amaryl] 4 mg PO WITHBREAKFAST 12/29/14 [History] Metoprolol Succinate [Toprol XL] 100 mg PO BEDTIME 12/29/14 [History] metFORMIN [Glucophage] 500 mg PO BIDMEALS 12/29/14 [History] Finasteride [Proscar] 5 mg PO DAILY 03/16/16 [History] Tamsulosin [Flomax] 0.4 mg PO DAILY 03/16/16 [History] Aspirin [Halfprin] 81 mg PO DAILY 04/04/17 [History] Amiodarone [Cordarone] 200 mg PO BID 12/06/17 [History] Metoprolol Succinate [Toprol XL] 25 mg PO BEDTIME 12/06/17 [History] Simvastatin [Zocor] 20 mg PO BEDTIME 12/06/17 [History] Warfarin [Coumadin] 1.25 mg PO .MOWEDFRI 12/06/17 [History] Warfarin [Coumadin] 2.5 mg PO .TUTHUSATSUN 12/06/17 [History] Past Medical History HEENT History: Reports: Cataract, Impaired Vision Cardiovascular History: Reports: Afib, CAD, High Cholesterol, Hypertension, Pacemaker Respiratory History: Reports: SOB Gastrointestinal History: Reports: GERD Genitourinary History: Reports: Chronic Renal Insuffiency, Prostate Disorder, Other (See Below) Other Genitourinary History: bladder spasms Musculoskeletal History: Reports: Fracture, Osteoarthritis Neurological History: Reports: TIA Endocrine/Metabolic History: Reports: Diabetes, Type II Dermatologic History: Reports: Other (See Below) Other Dermatologic History: actinic keratosis - Infectious Disease History Infectious Disease History: Reports: Chicken Pox, Measles, Mumps, Shingles - Past Surgical History HEENT Surgical History: Reports: Adenoidectomy, Cataract Surgery, Tonsillectomy Cardiovascular Surgical History: Reports: Coronary Artery Bypass GI Surgical History: Reports: None Male Surgical History: Reports: Other (See Below) Other Male Surgeries/Procedures: cystourethroscopy, nephrolithiasis Endocrine Surgical History: Reports: None Neurological Surgical History: Reports: None Musculoskeletal Surgical History: Reports: None Dermatological Surgical History: Reports: None Social & Family History - Family History Family Medical History: Noncontributory - Tobacco Use Smoking Status *Q: Former Smoker Years of Tobacco use: 25 Packs/Tins Daily: 1 Used Tobacco, but Quit: Yes Month/Year Tobacco Last Used: 07/2005 Second Hand Smoke Exposure: No - Caffeine Use Caffeine Use: Reports: Coffee - Recreational Drug Use Recreational Drug Use: No H&P Review of Systems - Review of Systems: Review Of Systems: See Below General: Denies: Fever, Chills HEENT: Reports: No Symptoms Pulmonary: Reports: Shortness of Breath, Cough Cardiovascular: Reports: No Symptoms. Denies: Chest Pain, Palpitations Gastrointestinal: Reports: No Symptoms Genitourinary: Reports: No Symptoms Musculoskeletal: Reports: No Symptoms Skin: Reports: No Symptoms Exam - Exam Exam: See Below - Vital Signs Vital Signs: Last Vital Signs Temp 37.2 C 12/06/17 15:16 Pulse 73 12/06/17 15:16 Resp 20 12/06/17 15:16 BP 151/68 H 05/30/18 15:16 Pulse Ox 98 12/06/17 15:16 Weight: 84.55 kg - Exam General: Alert, Oriented HEENT: Conjunctiva Clear Neck: Supple, Trachea Midline Lungs: Crackles Cardiovascular: Regular Rate, Regular Rhythm GI/Abdominal Exam: Normal Bowel Sounds Back Exam: Normal Inspection Extremities: Normal Inspection, No Pedal Edema - Patient Data Lab Results Last 24 hrs: Laboratory Results - last 24 hr 12/06/17 12/06/17 12/06/17 Range/Units 07:54 07:54 07:54 WBC 10.7 H (5.0-10.0) 10^3/uL RBC 4.94 (4.6-6.2) 10^6/uL Hgb 13.8 L (14.0-18.0) g/dL Hct 43.5 (40.0-54.0) % MCV 88.1 (80-100) fL MCH 27.9 (27.0-34.0) pg MCHC 31.7 L (33.0-35.0) g/dL Plt Count 183 (150-450) 10^3/uL Neut % (Auto) 80.7 H (42.2-75.2) % Lymph % (Auto) 10.3 L (20.5-50.1) % [place] % (Auto) 8.6 H (2-8) % Eos % (Auto) 0.2 L (1.0-3.0) % Baso % (Auto) 0.2 (0.0-1.0) % PT (9.0-12.0) SEC INR (0.9-1.2) D-Dimer, Quantitative (0-400) ng/mL Sodium 135 (135-145) mmol/L Potassium 4.4 (3.6-5.0) mmol/L Chloride 100 L (101-111) mmol/L Carbon Dioxide 27.0 (21.0-31.0) mmol/L Anion Gap 12.4 BUN 16 (7-18) mg/dL Creatinine 1.0 (0.6-1.3) mg/dL Est Cr Clr Drug Dosing 64.36 mL/min Estimated GFR (MDRD) > 60 BUN/Creatinine Ratio 16.00 Glucose 246 H (74-105) mg/dL POC Glucose (83-110) mg/dl Calcium 9.2 (8.4-10.2) mg/dl Total Bilirubin 1.2 H (0.2-1.0) mg/dL AST 26 (10-42) IU/L ALT 23 (10-60) IU/L Alkaline Phosphatase 65 (42-121) IU/L Troponin I < 0.02 (0.00-0.02) ng/ml B-Natriuretic Peptide 287 H (0-100) pg/ml Total Protein 7.0 (6.7-8.2) g/dl Albumin 4.0 (3.2-5.5) g/dl Globulin 3.0 Albumin/Globulin Ratio 1.33 Urine Color (YELLOW) Urine Appearance (CLEAR) Urine pH (5.0-9.0) Ur Specific [place] (1.005-1.030) Urine Protein (NEGATIVE) Urine Glucose (UA) (NEGATIVE) Urine Ketones (NEGATIVE) Urine Occult Blood (NEGATIVE) Urine Nitrite (NEGATIVE) Urine Bilirubin (NEGATIVE) Urine Urobilinogen (0.2-1.0) mg/dL Ur Leukocyte Esterase (NEGATIVE) Urine RBC /HPF Urine WBC (0-5/HPF) /HPF Ur Epithelial Cells /HPF Amorphous Sediment (0/HPF) /HPF Urine Bacteria (0-FEW/HPF) /HPF Urine Mucus /LPF 12/06/17 12/06/17 12/06/17 Range/Units 07:54 07:54 11:11 WBC (5.0-10.0) 10^3/uL RBC (4.6-6.2) 10^6/uL Hgb (14.0-18.0) g/dL Hct (40.0-54.0) % MCV (80-100) fL MCH (27.0-34.0) pg MCHC (33.0-35.0) g/dL Plt Count (150-450) 10^3/uL Neut % (Auto) (42.2-75.2) % Lymph % (Auto) (20.5-50.1) % [place] % (Auto) (2-8) % Eos % (Auto) (1.0-3.0) % Baso % (Auto) (0.0-1.0) % PT 44.9 H D (9.0-12.0) SEC INR 4.7 H (0.9-1.2) D-Dimer, Quantitative 518 H (0-400) ng/mL Sodium (135-145) mmol/L Potassium (3.6-5.0) mmol/L Chloride (101-111) mmol/L Carbon Dioxide (21.0-31.0) mmol/L Anion Gap BUN (7-18) mg/dL Creatinine (0.6-1.3) mg/dL Est Cr Clr Drug Dosing mL/min Estimated GFR (MDRD) BUN/Creatinine Ratio Glucose (74-105) mg/dL POC Glucose 216 H (83-110) mg/dl Calcium (8.4-10.2) mg/dl Total Bilirubin (0.2-1.0) mg/dL AST (10-42) IU/L ALT (10-60) IU/L Alkaline Phosphatase (42-121) IU/L Troponin I (0.00-0.02) ng/ml B-Natriuretic Peptide (0-100) pg/ml Total Protein (6.7-8.2) g/dl Albumin (3.2-5.5) g/dl Globulin Albumin/Globulin Ratio Urine Color (YELLOW) Urine Appearance (CLEAR) Urine pH (5.0-9.0) Ur Specific [place] (1.005-1.030) Urine Protein (NEGATIVE) Urine Glucose (UA) (NEGATIVE) Urine Ketones (NEGATIVE) Urine Occult Blood (NEGATIVE) Urine Nitrite (NEGATIVE) Urine Bilirubin (NEGATIVE) Urine Urobilinogen (0.2-1.0) mg/dL Ur Leukocyte Esterase (NEGATIVE) Urine RBC /HPF Urine WBC (0-5/HPF) /HPF Ur Epithelial Cells /HPF Amorphous Sediment (0/HPF) /HPF Urine Bacteria (0-FEW/HPF) /HPF Urine Mucus /LPF 12/06/17 Range/Units 11:40 WBC (5.0-10.0) 10^3/uL RBC (4.6-6.2) 10^6/uL Hgb (14.0-18.0) g/dL Hct (40.0-54.0) % MCV (80-100) fL MCH (27.0-34.0) pg MCHC (33.0-35.0) g/dL Plt Count (150-450) 10^3/uL Neut % (Auto) (42.2-75.2) % Lymph % (Auto) (20.5-50.1) % [place] % (Auto) (2-8) % Eos % (Auto) (1.0-3.0) % Baso % (Auto) (0.0-1.0) % PT (9.0-12.0) SEC INR (0.9-1.2) D-Dimer, Quantitative (0-400) ng/mL Sodium (135-145) mmol/L Potassium (3.6-5.0) mmol/L Chloride (101-111) mmol/L Carbon Dioxide (21.0-31.0) mmol/L Anion Gap BUN (7-18) mg/dL Creatinine (0.6-1.3) mg/dL Est Cr Clr Drug Dosing mL/min Estimated GFR (MDRD) BUN/Creatinine Ratio Glucose (74-105) mg/dL POC Glucose (83-110) mg/dl Calcium (8.4-10.2) mg/dl Total Bilirubin (0.2-1.0) mg/dL AST (10-42) IU/L ALT (10-60) IU/L Alkaline Phosphatase (42-121) IU/L Troponin I (0.00-0.02) ng/ml B-Natriuretic Peptide (0-100) pg/ml Total Protein (6.7-8.2) g/dl Albumin (3.2-5.5) g/dl Globulin Albumin/Globulin Ratio Urine Color [place] (YELLOW) Urine Appearance Slightly cloudy (CLEAR) Urine pH 5.5 (5.0-9.0) Ur Specific [place] >= 1.030 (1.005-1.030) Urine Protein 30 H (NEGATIVE) Urine Glucose (UA) 250 H (NEGATIVE) Urine Ketones 15 H (NEGATIVE) Urine Occult Blood Large H (NEGATIVE) Urine Nitrite Negative (NEGATIVE) Urine Bilirubin Small H (NEGATIVE) Urine Urobilinogen 0.2 (0.2-1.0) mg/dL Ur Leukocyte Esterase Trace H (NEGATIVE) Urine RBC 50-75 H /HPF Urine WBC 10-20 H (0-5/HPF) /HPF Ur Epithelial Cells Few /HPF Amorphous Sediment Moderate (0/HPF) /HPF Urine Bacteria Few (0-FEW/HPF) /HPF Urine Mucus Moderate H /LPF Result Diagrams: 12/06/17 07:54 12/06/17 07:54 Imaging Impressions Last 24 hrs: Pulmonic congestion Problem List Initiated/Reviewed/Updated: Yes Orders Last 24hrs: Active Orders 24 hr Category Date Time Status Patient Status [ADT] Routine ADT 12/06/17 10:55 Active Accu Check [Blood Glucose Check, Bedside] [RC] Care 12/06/17 11:00 Active WITHMEALSANDBED Ambulate [RC] ASDIRECTED Care 12/06/17 10:55 Active Cardiac Monitoring [RC] 08, Care 12/06/17 10:57 Active Height and Weight [RC] 06 Care 12/06/17 10:55 Active Intake and Output [RC] QSHIFT Care 12/06/17 10:57 Active Oxygen Therapy [RC] .PRN Care 12/06/17 10:55 Active Peripheral IV Care [RC] 08, Care 12/06/17 10:59 Active Up With Assistance [RC] ASDIRECTED Care 12/06/17 10:55 Active Up ad Ingrid [RC] ASDIRECTED Care 12/06/17 10:55 Active VTE/DVT Education [RC] 08,20 Care 12/06/17 10:55 Active Vital Signs [RC] 03,07,11,15,19,23 Care 12/06/17 10:55 Active Consistent Carbohydrate Diet [DIET] Diet 12/06/17 Lunch Active BASIC METABOLIC PANEL,BMP [CHEM] AM Lab 12/07/17 05:11 Ordered CBC WITH AUTO DIFF [HEME] AM Lab 12/07/17 05:11 Ordered INR,PT,PROTHROMBIN TIME [COAG] AM Lab 12/07/17 05:11 Ordered UA W/MICROSCOPIC [URIN] Stat Lab 12/06/17 11:40 Ordered Amiodarone [Cordarone] Med 12/06/17 11:15 Active 200 mg PO BID Amiodarone [Cordarone] Med 12/08/17 09:00 Active 200 mg PO DAILY Aspirin [Halfprin] Med 12/06/17 11:15 Active 81 mg PO DAILY Finasteride [Proscar] Med 12/06/17 11:15 Active 5 mg PO DAILY Furosemide [Lasix] Med 12/06/17 12:30 Active 40 mg IVPUSH 0600,1800 Glimepiride [Amaryl] Med 12/07/17 08:00 Active 4 mg PO WITHBREAKFAST Insulin Aspart [NovoLOG] Med 12/06/17 11:00 Active See Protocol SUBCUT TIDAC Metoprolol Succinate [Toprol XL] Med 12/06/17 21:00 Active 100 mg PO BEDTIME Metoprolol Succinate [Toprol XL] Med 12/06/17 21:00 Active 25 mg PO BEDTIME Simvastatin [Zocor] Med 12/06/17 21:00 Active 20 mg PO BEDTIME Sodium Chloride 0.9% [Saline Flush] Med 12/06/17 10:55 Active 10 ml FLUSH ASDIRECTED PRN Tamsulosin [Flomax] Med 12/06/17 11:15 Active 0.4 mg PO DAILY Warfarin Pharmacy to Dose [Pharmacy to Dose - Warfarin] Med 12/06/17 11:00 Pending 1 dose .XX ASDIRECTED amLODIPine [Norvasc] Med 12/06/17 11:15 Active 10 mg PO DAILY metFORMIN [Glucophage] Med 12/06/17 18:00 Active 500 mg PO BIDMEALS Peripheral IV Insertion Adult [OM.PC] Routine Oth 12/06/17 10:55 Ordered Saline Lock Insert [OM.PC] Routine Oth 12/06/17 10:55 Ordered Resuscitation Status Routine Resus Stat 12/06/17 10:55 Ordered Medication Orders Amiodarone HCl (Cordarone) 200 mg PO BID [facility] Stop: 12/07/17 21:01 Last Admin: 12/06/17 12:34 Dose: 200 mg Amiodarone HCl (Cordarone) 200 mg PO DAILY [facility] Amlodipine Besylate (Norvasc) 10 mg PO DAILY [facility] Last Admin: 12/06/17 12:36 Dose: 10 mg Aspirin (Halfprin) 81 mg PO DAILY [facility] Last Admin: 12/06/17 12:37 Dose: 81 mg Finasteride (Proscar) 5 mg PO DAILY [facility] Last Admin: 12/06/17 12:34 Dose: 5 mg Furosemide (Lasix) 40 mg IVPUSH 0600,1800 [facility] Last Admin: 12/06/17 12:39 Dose: 40 mg Glimepiride (Amaryl) 4 mg PO WITHBREAKFAST [facility] Insulin Aspart (Novolog) 0 unit SUBCUT TIDAC [facility]; Protocol Last Admin: 12/06/17 12:37 Dose: 4 units Metformin HCl (Glucophage) 500 mg PO BIDMEALS [facility] Metoprolol Succinate (Toprol Xl) 100 mg PO BEDTIME [facility] Metoprolol Succinate (Toprol Xl) 25 mg PO BEDTIME [facility] Simvastatin (Zocor) 20 mg PO BEDTIME [facility] Sodium Chloride (Saline Flush) 10 ml FLUSH ASDIRECTED PRN PRN Reason: Keep Vein Open Last Admin: 12/06/17 12:39 Dose: 10 ml Tamsulosin HCl (Flomax) 0.4 mg PO DAILY [facility] Last Admin: 12/06/17 12:34 Dose: 0.4 mg Warfarin Sodium (Pharmacy To Dose - Warfarin) 1 dose .XX ASDIRECTED [facility] Assessment/Plan Comment:: 82-year-old male with past medical history of hypertension, type 2 diabetes and oral medication, atrial fibrillation on chronic anticoagulation, benign prostatic hyperplasia, who presents with shortness of breath, dizziness. #Acute hypoxic respiratory failure likely secondary to flash pulmonary edema from a hypertensive emergency, improving Shortness of breath has improved since admission Blood pressure is also improved since admission Will not require IV antihypertensives at this point Start IV Lasix 40 mg every 12 hours Amlodipine 10 mg daily Oxygen by nasal cannula as needed to keep sats above 92% We'll need 2-D echo as an outpatient Monitor I's and O's strictly Fluid restrict to 1.5 L daily Salt restrict 2 g daily #Atrial fibrillation Rate control: Currently rate controlled, continue metoprolol Anticoagulation: Supratherapeutic INR, monitor INR #Supratherapeutic INR Monitor INR Hold Coumadin for now #Type 2 diabetes Accu-Cheks 3 times a day before meals and at bedtime Insulin sliding scale Continue oral diabetes medication #BPH Stable Continue Flomax DVT prophylaxis Supratherapeutic INR CODE STATUS Full code
[2017-12-06] MEDS: metFORMIN 500 MG Tab PO SCH (17:46)
--- NOTE | 2017-12-06 18:11 | EKG ---
12/06/2017 - JASON MAYFIELD - TIME: 7:53 a.m. FINDINGS: EKG shows a sinus rhythm with a heart rate of 72 beats per minute. A prolonged corrected QTc of 483 milliseconds. No gross T-wave or ST-segment abnormalities. [facility] /[id number]
[2017-12-06] MEDS: Simvastatin 10 MG Tab PO SCH (21:29)
[2017-12-06] MEDS: Metoprolol Succinate 50 MG Tab.ER PO SCH (21:30)
[2017-12-06] MEDS: Metoprolol Succinate 25 MG Tab.ER PO SCH (21:31)
[2017-12-07] MEDS: Sodium Chloride 0.9% 10 ML Syringe FLUSH PRN ×3 (05:55→21:32)
[2017-12-07] MEDS: Furosemide 40 MG/4 ML VIAL IVPUSH SCH ×2 (05:56→17:52)
[2017-12-07 07:14] LABS: CHLORIDE,CL 94 mmol/L (101-111); SODIUM,NA 137 mmol/L (135-145)
[2017-12-07] MEDS: Insulin Aspart 100 Units/ML 3 ML Pen SUBCUT SCH ×3 (08:01→17:14)
[2017-12-07] MEDS: Amiodarone 200 MG Tab PO SCH ×2 (08:22→21:18)
[2017-12-07] MEDS: metFORMIN 500 MG Tab PO SCH ×2 (08:22→17:33)
[2017-12-07] MEDS: Finasteride 5 MG Tab PO SCH (08:22)
[2017-12-07] MEDS: Tamsulosin 0.4 MG Cap.ER PO SCH (08:22)
[2017-12-07] MEDS: Aspirin 81 MG Tab.EC PO SCH (08:23)
[2017-12-07] MEDS: amLODIPine 5 MG Tab PO SCH (08:23)
[2017-12-07] MEDS: Glimepiride 2 MG Tab PO SCH (08:23)
--- NOTE | 2017-12-07 10:14 | PCM.PN ---
- General Info Date of Service: 12/07/17 Admission Dx/Problem (Free Text): Admission Diagnosis/Problem Admission Diagnosis/Problem Acute respiratory failure Subjective Update: 82-year-old male with past medical history of hypertension, type 2 diabetes and oral medication, atrial fibrillation on chronic anticoagulation, benign prostatic hyperplasia, who presents with shortness of breath, dizziness. Blood pressure was elevated on admission, he is being managed as a case of acute hypoxic respiratory failure secondary to flash pulmonary edema. Feels much better this morning Shortness of breath is improved We will try to wean off his oxygen INR is elevated - Review of Systems General: Reports: No Symptoms HEENT: Reports: No Symptoms Pulmonary: Reports: No Symptoms Cardiovascular: Reports: No Symptoms Gastrointestinal: Reports: No Symptoms. Denies: Melena Genitourinary: Reports: No Symptoms, Other (No hematuria). Denies: Hematuria - Patient Data Vitals - Most Recent: Last Vital Signs Temp 36.7 C 12/07/17 07:30 Pulse 63 12/07/17 07:30 Resp 20 12/07/17 07:30 BP 97/60 12/07/17 08:23 Pulse Ox 97 12/07/17 07:30 Weight - Most Recent: 80.195 kg I&O - Last 24 Hours: Intake & Output 12/06/17 12/07/17 12/07/17 22:59 06:59 14:59 Intake Total 750 300 120 Output Total 1100 420 550 Balance -350 -120 -430 Lab Results Last 24 Hours: Laboratory Results - last 24 hr 12/06/17 12/06/17 12/06/17 Range/Units 11:11 11:40 17:01 WBC (5.0-10.0) 10^3/uL RBC (4.6-6.2) 10^6/uL Hgb (14.0-18.0) g/dL Hct (40.0-54.0) % MCV (80-100) fL MCH (27.0-34.0) pg MCHC (33.0-35.0) g/dL Plt Count (150-450) 10^3/uL Neut % (Auto) (42.2-75.2) % Lymph % (Auto) (20.5-50.1) % [place] % (Auto) (2-8) % Eos % (Auto) (1.0-3.0) % Baso % (Auto) (0.0-1.0) % PT (9.0-12.0) SEC INR (0.9-1.2) Sodium (135-145) mmol/L Potassium (3.6-5.0) mmol/L Chloride (101-111) mmol/L Carbon Dioxide (21.0-31.0) mmol/L Anion Gap BUN (7-18) mg/dL Creatinine (0.6-1.3) mg/dL Est Cr Clr Drug Dosing mL/min Estimated GFR (MDRD) Glucose (74-105) mg/dL POC Glucose 216 H 213 H (83-110) mg/dl Calcium (8.4-10.2) mg/dl Total Bilirubin (0.2-1.0) mg/dL Direct Bilirubin (0.0-0.2) mg/dL Indirect Bilirubin AST (10-42) IU/L ALT (10-60) IU/L Alkaline Phosphatase (42-121) IU/L Total Protein (6.7-8.2) g/dl Albumin (3.2-5.5) g/dl Globulin Albumin/Globulin Ratio Urine Color [place] (YELLOW) Urine Appearance Slightly cloudy (CLEAR) Urine pH 5.5 (5.0-9.0) Ur Specific [place] >= 1.030 (1.005-1.030) Urine Protein 30 H (NEGATIVE) Urine Glucose (UA) 250 H (NEGATIVE) Urine Ketones 15 H (NEGATIVE) Urine Occult Blood Large H (NEGATIVE) Urine Nitrite Negative (NEGATIVE) Urine Bilirubin Small H (NEGATIVE) Urine Urobilinogen 0.2 (0.2-1.0) mg/dL Ur Leukocyte Esterase Trace H (NEGATIVE) Urine RBC 50-75 H /HPF Urine WBC 10-20 H (0-5/HPF) /HPF Ur Epithelial Cells Few /HPF Amorphous Sediment Moderate (0/HPF) /HPF Urine Bacteria Few (0-FEW/HPF) /HPF Urine Mucus Moderate H /LPF 12/06/17 12/07/17 12/07/17 Range/Units 20:51 06:30 06:30 WBC 9.4 (5.0-10.0) 10^3/uL RBC 4.77 (4.6-6.2) 10^6/uL Hgb 13.1 L (14.0-18.0) g/dL Hct 41.5 (40.0-54.0) % MCV 87.0 (80-100) fL MCH 27.5 (27.0-34.0) pg MCHC 31.6 L (33.0-35.0) g/dL Plt Count 191 (150-450) 10^3/uL Neut % (Auto) 73.3 (42.2-75.2) % Lymph % (Auto) 12.7 L (20.5-50.1) % [place] % (Auto) 12.7 H (2-8) % Eos % (Auto) 0.9 L (1.0-3.0) % Baso % (Auto) 0.4 (0.0-1.0) % PT 63.9 H D (9.0-12.0) SEC INR 6.8 H* (0.9-1.2) Sodium (135-145) mmol/L Potassium (3.6-5.0) mmol/L Chloride (101-111) mmol/L Carbon Dioxide (21.0-31.0) mmol/L Anion Gap BUN (7-18) mg/dL Creatinine (0.6-1.3) mg/dL Est Cr Clr Drug Dosing mL/min Estimated GFR (MDRD) Glucose (74-105) mg/dL POC Glucose 146 H (83-110) mg/dl Calcium (8.4-10.2) mg/dl Total Bilirubin (0.2-1.0) mg/dL Direct Bilirubin (0.0-0.2) mg/dL Indirect Bilirubin AST (10-42) IU/L ALT (10-60) IU/L Alkaline Phosphatase (42-121) IU/L Total Protein (6.7-8.2) g/dl Albumin (3.2-5.5) g/dl Globulin Albumin/Globulin Ratio Urine Color (YELLOW) Urine Appearance (CLEAR) Urine pH (5.0-9.0) Ur Specific [place] (1.005-1.030) Urine Protein (NEGATIVE) Urine Glucose (UA) (NEGATIVE) Urine Ketones (NEGATIVE) Urine Occult Blood (NEGATIVE) Urine Nitrite (NEGATIVE) Urine Bilirubin (NEGATIVE) Urine Urobilinogen (0.2-1.0) mg/dL Ur Leukocyte Esterase (NEGATIVE) Urine RBC /HPF Urine WBC (0-5/HPF) /HPF Ur Epithelial Cells /HPF Amorphous Sediment (0/HPF) /HPF Urine Bacteria (0-FEW/HPF) /HPF Urine Mucus /LPF 12/07/17 12/07/17 Range/Units 06:30 06:30 WBC (5.0-10.0) 10^3/uL RBC (4.6-6.2) 10^6/uL Hgb (14.0-18.0) g/dL Hct (40.0-54.0) % MCV (80-100) fL MCH (27.0-34.0) pg MCHC (33.0-35.0) g/dL Plt Count (150-450) 10^3/uL Neut % (Auto) (42.2-75.2) % Lymph % (Auto) (20.5-50.1) % [place] % (Auto) (2-8) % Eos % (Auto) (1.0-3.0) % Baso % (Auto) (0.0-1.0) % PT (9.0-12.0) SEC INR (0.9-1.2) Sodium 137 (135-145) mmol/L Potassium 3.7 (3.6-5.0) mmol/L Chloride 94 L (101-111) mmol/L Carbon Dioxide 33.0 H (21.0-31.0) mmol/L Anion Gap 13.7 BUN 20 H (7-18) mg/dL Creatinine 1.1 (0.6-1.3) mg/dL Est Cr Clr Drug Dosing 58.51 mL/min Estimated GFR (MDRD) > 60 Glucose 111 H (74-105) mg/dL POC Glucose (83-110) mg/dl Calcium 9.0 (8.4-10.2) mg/dl Total Bilirubin 1.3 H (0.2-1.0) mg/dL Direct Bilirubin 0.2 (0.0-0.2) mg/dL Indirect Bilirubin 1.1 AST 18 (10-42) IU/L ALT 18 (10-60) IU/L Alkaline Phosphatase 61 (42-121) IU/L Total Protein 6.8 (6.7-8.2) g/dl Albumin 3.6 (3.2-5.5) g/dl Globulin 3.2 Albumin/Globulin Ratio 1.13 Urine Color (YELLOW) Urine Appearance (CLEAR) Urine pH (5.0-9.0) Ur Specific [place] (1.005-1.030) Urine Protein (NEGATIVE) Urine Glucose (UA) (NEGATIVE) Urine Ketones (NEGATIVE) Urine Occult Blood (NEGATIVE) Urine Nitrite (NEGATIVE) Urine Bilirubin (NEGATIVE) Urine Urobilinogen (0.2-1.0) mg/dL Ur Leukocyte Esterase (NEGATIVE) Urine RBC /HPF Urine WBC (0-5/HPF) /HPF Ur Epithelial Cells /HPF Amorphous Sediment (0/HPF) /HPF Urine Bacteria (0-FEW/HPF) /HPF Urine Mucus /LPF Med Orders - Current: Current Medications Amiodarone HCl (Cordarone) 200 mg PO BID [facility] Stop: 12/07/17 21:01 Last Admin: 12/07/17 08:22 Dose: 200 mg Amiodarone HCl (Cordarone) 200 mg PO DAILY [facility] Amlodipine Besylate (Norvasc) 10 mg PO DAILY [facility] Last Admin: 12/07/17 08:23 Dose: 10 mg Aspirin (Halfprin) 81 mg PO DAILY [facility] Last Admin: 12/07/17 08:23 Dose: 81 mg Finasteride (Proscar) 5 mg PO DAILY [facility] Last Admin: 12/07/17 08:22 Dose: 5 mg Furosemide (Lasix) 40 mg IVPUSH 0600,1800 [facility] Last Admin: 12/07/17 05:56 Dose: 40 mg Glimepiride (Amaryl) 4 mg PO WITHBREAKFAST [facility] Last Admin: 12/07/17 08:23 Dose: 4 mg Insulin Aspart (Novolog) 0 unit SUBCUT TIDAC [facility]; Protocol Last Admin: 12/07/17 08:01 Dose: Not Given Metformin HCl (Glucophage) 500 mg PO BIDMEALS [facility] Last Admin: 12/07/17 08:22 Dose: 500 mg Metoprolol Succinate (Toprol Xl) 100 mg PO BEDTIME [facility] Last Admin: 12/06/17 21:30 Dose: 100 mg Metoprolol Succinate (Toprol Xl) 25 mg PO BEDTIME [facility] Last Admin: 12/06/17 21:31 Dose: 25 mg Simvastatin (Zocor) 20 mg PO BEDTIME [facility] Last Admin: 12/06/17 21:29 Dose: 20 mg Sodium Chloride (Saline Flush) 10 ml FLUSH ASDIRECTED PRN PRN Reason: Keep Vein Open Last Admin: 12/07/17 06:05 Dose: 10 ml Tamsulosin HCl (Flomax) 0.4 mg PO DAILY [facility] Last Admin: 12/07/17 08:22 Dose: 0.4 mg Warfarin Sodium (Pharmacy To Dose - Warfarin) 1 dose .XX ASDIRECTED [facility] Discontinued Medications No Warfarin (Today ) 0 each PO ONETIME ONE Stop: 12/06/17 14:01 Last Admin: 12/06/17 14:35 Dose: Not Given - Exam General: Alert, Oriented HEENT: Pupils Equal Neck: Supple Lungs: Clear to Auscultation Cardiovascular: Regular Rate, Regular Rhythm GI/Abdominal Exam: Normal Bowel Sounds Extremities: Normal Inspection, Normal Range of Motion, Non-Tender - Problem List Review Problem List Initiated/Reviewed/Updated: Yes - My Orders Last 24 Hours: My Active Orders 12/06/17 10:55 Patient Status [ADT] Routine Ambulate [RC] ASDIRECTED Height and Weight [RC] 06 Oxygen Therapy [RC] .PRN Up With Assistance [RC] ASDIRECTED Up ad Ingrid [RC] ASDIRECTED VTE/DVT Education [RC] 08,20 Vital Signs [RC] 03,07,11,15,19,23 Sodium Chloride 0.9% [Saline Flush] 10 ml FLUSH ASDIRECTED PRN Peripheral IV Insertion Adult [OM.PC] Routine Saline Lock Insert [OM.PC] Routine Resuscitation Status Routine 12/06/17 10:57 Cardiac Monitoring [RC] 08,20 Intake and Output [RC] QSHIFT 12/06/17 10:59 Peripheral IV Care [RC] 08,20 12/06/17 11:00 Accu Check [Blood Glucose Check, Bedside] [RC] WITHMEALSANDBED Insulin Aspart [NovoLOG] See Protocol SUBCUT TIDAC Warfarin Pharmacy to Dose [Pharmacy to Dose - Warfarin] 1 dose .XX ASDIRECTED 12/06/17 11:15 Amiodarone [Cordarone] 200 mg PO BID Aspirin [Halfprin] 81 mg PO DAILY Finasteride [Proscar] 5 mg PO DAILY Tamsulosin [Flomax] 0.4 mg PO DAILY amLODIPine [Norvasc] 10 mg PO DAILY 12/06/17 12:30 Furosemide [Lasix] 40 mg IVPUSH 0600,1800 12/06/17 18:00 metFORMIN [Glucophage] 500 mg PO BIDMEALS 12/06/17 21:00 Metoprolol Succinate [Toprol XL] 100 mg PO BEDTIME Metoprolol Succinate [Toprol XL] 25 mg PO BEDTIME Simvastatin [Zocor] 20 mg PO BEDTIME 12/06/17 Lunch Consistent Carbohydrate Diet [DIET] 12/07/17 08:00 Glimepiride [Amaryl] 4 mg PO WITHBREAKFAST 12/08/17 09:00 Amiodarone [Cordarone] 200 mg PO DAILY - Plan Plan:: 82-year-old male with past medical history of hypertension, type 2 diabetes and oral medication, atrial fibrillation on chronic anticoagulation, benign prostatic hyperplasia, who presents with shortness of breath, dizziness. #Acute hypoxic respiratory failure likely secondary to flash pulmonary edema from a hypertensive emergency, improving Shortness of breath has improved since admission Blood pressure is also improved since admission Will not require IV antihypertensives at this point Blood pressure is low normal, we'll stop amlodipine and Lasix Wean off oxygen We'll need 2-D echo as an outpatient Monitor I's and O's strictly Fluid restrict to 1.5 L daily Salt restrict 2 g daily We will need to work up etiology of pulmonary edema from hypertensive emergency : We will need renal artery Doppler as outpatient #Atrial fibrillation Rate control: Currently rate controlled, continue metoprolol Anticoagulation: Supratherapeutic INR, monitor INR #Supratherapeutic INR Start amiodarone on November 22, 2017 Supratherapeutic INR is likely due to Coumadin interaction with amiodarone According to the literature, and increase in INR up to 44% has been noted with peak amiodarone effects on INR at 7 weeks https://www.aafp.org/afp/2001/0415/p1669.html Monitor INR daily The patient has no signs or symptoms of bleeding Hold Coumadin for now #Type 2 diabetes Accu-Cheks 3 times a day before meals and at bedtime Insulin sliding scale Continue oral diabetes medication #BPH Stable Continue Flomax DVT prophylaxis Supratherapeutic INR CODE STATUS Full code
[2017-12-07] MEDS: Calcium Carbonate 500 MG Tab.Chew PO PRN (17:45)
[2017-12-07] MEDS: Simvastatin 10 MG Tab PO SCH (21:17)
[2017-12-07] MEDS: Metoprolol Succinate 25 MG Tab.ER PO SCH (21:18)
[2017-12-07] MEDS: Metoprolol Succinate 50 MG Tab.ER PO SCH (21:19)
[2017-12-08] MEDS: Insulin Aspart 100 Units/ML 3 ML Pen SUBCUT SCH ×3 (09:08→16:50)
[2017-12-08] MEDS: Glimepiride 2 MG Tab PO SCH (09:21)
[2017-12-08] MEDS: Finasteride 5 MG Tab PO SCH (09:21)
[2017-12-08] MEDS: Amiodarone 200 MG Tab PO SCH (09:21)
[2017-12-08] MEDS: Tamsulosin 0.4 MG Cap.ER PO SCH (09:22)
[2017-12-08] MEDS: Aspirin 81 MG Tab.EC PO SCH (09:22)
[2017-12-08] MEDS: metFORMIN 500 MG Tab PO SCH ×2 (09:24→17:38)
--- NOTE | 2017-12-08 09:33 | PCM.PN ---
- General Info Date of Service: 12/08/17 Admission Dx/Problem (Free Text): Admission Diagnosis/Problem Admission Diagnosis/Problem Acute respiratory failure Subjective Update: 82-year-old male with past medical history of hypertension, type 2 diabetes and oral medication, atrial fibrillation on chronic anticoagulation, benign prostatic hyperplasia, who presents with shortness of breath, dizziness. Blood pressure was elevated on admission, he is being managed as a case of acute hypoxic respiratory failure secondary to flash pulmonary edema. Feels much better this morning Shortness of breath is improved We will try to wean off his oxygen INR is elevated - Review of Systems General: Reports: No Symptoms HEENT: Reports: No Symptoms Pulmonary: Reports: No Symptoms Cardiovascular: Reports: No Symptoms Gastrointestinal: Reports: No Symptoms Genitourinary: Reports: No Symptoms Musculoskeletal: Reports: No Symptoms Skin: Reports: No Symptoms - Patient Data Vitals - Most Recent: Last Vital Signs Temp 37.3 C 12/08/17 07:00 Pulse 67 12/08/17 07:00 Resp 18 12/08/17 07:00 BP 108/65 12/08/17 07:00 Pulse Ox 98 12/08/17 07:00 Weight - Most Recent: 79.832 kg I&O - Last 24 Hours: Intake & Output 12/07/17 12/08/17 12/08/17 22:59 06:59 14:59 Intake Total 200 400 Output Total 100 340 Balance 100 60 Lab Results Last 24 Hours: Laboratory Results - last 24 hr 12/07/17 12/07/17 12/07/17 Range/Units 07:54 11:56 17:06 PT (9.0-12.0) SEC INR (0.9-1.2) POC Glucose 110 99 81 L (83-110) mg/dl 12/07/17 12/07/17 12/08/17 Range/Units 17:40 20:44 05:50 PT 45.4 H (9.0-12.0) SEC INR 4.8 H (0.9-1.2) POC Glucose 121 H 85 (83-110) mg/dl 12/08/17 Range/Units 07:43 PT (9.0-12.0) SEC INR (0.9-1.2) POC Glucose 104 (83-110) mg/dl Med Orders - Current: Current Medications Amiodarone HCl (Cordarone) 200 mg PO DAILY [facility] Last Admin: 12/08/17 09:21 Dose: 200 mg Aspirin (Halfprin) 81 mg PO DAILY [facility] Last Admin: 12/08/17 09:22 Dose: 81 mg Calcium Carbonate/Glycine (Tums) 500 mg PO TID PRN PRN Reason: Indigestion Last Admin: 12/07/17 17:45 Dose: 500 mg Finasteride (Proscar) 5 mg PO DAILY [facility] Last Admin: 12/08/17 09:21 Dose: 5 mg Glimepiride (Amaryl) 4 mg PO WITHBREAKFAST [facility] Last Admin: 12/08/17 09:21 Dose: 4 mg Insulin Aspart (Novolog) 0 unit SUBCUT TIDAC [facility]; Protocol Last Admin: 12/08/17 09:08 Dose: Not Given Metformin HCl (Glucophage) 500 mg PO BIDMEALS [facility] Last Admin: 12/08/17 09:24 Dose: 500 mg Metoprolol Succinate (Toprol Xl) 100 mg PO BEDTIME [facility] Last Admin: 12/07/17 21:19 Dose: 100 mg Metoprolol Succinate (Toprol Xl) 25 mg PO BEDTIME [facility] Last Admin: 12/07/17 21:18 Dose: 25 mg Simvastatin (Zocor) 20 mg PO BEDTIME [facility] Last Admin: 12/07/17 21:17 Dose: 20 mg Sodium Chloride (Saline Flush) 10 ml FLUSH ASDIRECTED PRN PRN Reason: Keep Vein Open Last Admin: 12/07/17 21:32 Dose: 10 ml Tamsulosin HCl (Flomax) 0.4 mg PO DAILY [facility] Last Admin: 12/08/17 09:22 Dose: 0.4 mg Warfarin Sodium (Pharmacy To Dose - Warfarin) 1 dose .XX ASDIRECTED [facility] Discontinued Medications Amiodarone HCl (Cordarone) 200 mg PO BID [facility] Stop: 12/07/17 21:01 Last Admin: 12/07/17 21:18 Dose: 200 mg Amlodipine Besylate (Norvasc) 10 mg PO DAILY [facility] Last Admin: 12/07/17 08:23 Dose: 10 mg Furosemide (Lasix) 40 mg IVPUSH 0600,1800 [facility] Last Admin: 12/07/17 17:52 Dose: Not Given No Warfarin (Today ) 0 each PO ONETIME ONE Stop: 12/06/17 14:01 Last Admin: 12/06/17 14:35 Dose: Not Given No Warfarin (Today ) 0 each PO ONETIME ONE Stop: 12/07/17 14:01 Last Admin: 12/07/17 14:05 Dose: Not Given - Exam General: Alert, Oriented HEENT: Pupils Equal Neck: Supple Lungs: Clear to Auscultation Cardiovascular: Regular Rate, Regular Rhythm GI/Abdominal Exam: Normal Bowel Sounds, Soft, Non-Tender - Problem List Review Problem List Initiated/Reviewed/Updated: Yes - My Orders Last 24 Hours: My Active Orders 12/07/17 13:26 Calcium Carbonate [Tums] 500 mg PO TID PRN 12/08/17 09:00 Amiodarone [Cordarone] 200 mg PO DAILY 12/09/17 05:11 INR,PT,PROTHROMBIN TIME [COAG] AM 12/10/17 05:11 INR,PT,PROTHROMBIN TIME [COAG] AM - Plan Plan:: 82-year-old male with past medical history of hypertension, type 2 diabetes and oral medication, atrial fibrillation on chronic anticoagulation, benign prostatic hyperplasia, who presents with shortness of breath, dizziness. #Acute hypoxic respiratory failure likely secondary to flash pulmonary edema from a hypertensive emergency, improving Shortness of breath has improved since admission Blood pressure is also improved since admission Will not require IV antihypertensives at this point Blood pressure is low normal, we'll stop amlodipine and Lasix Wean off oxygen We'll need 2-D echo as an outpatient We will need to work up etiology of pulmonary edema from hypertensive emergency : Will need renal artery Doppler as outpatient #Atrial fibrillation Rate control: Currently rate controlled, continue metoprolol Anticoagulation: Supratherapeutic INR, monitor INR #Supratherapeutic INR Start amiodarone on November 22, 2017 Supratherapeutic INR is likely due to Coumadin interaction with amiodarone According to the literature, and increase in INR up to 44% has been noted with peak amiodarone effects on INR at 7 weeks https://www.aafp.org/afp/2001/0415/p1669.html Monitor INR daily The patient has no signs or symptoms of bleeding Hold Coumadin for now Will need close INR monitoring on discharge. #Type 2 diabetes Accu-Cheks 3 times a day before meals and at bedtime Insulin sliding scale Continue oral diabetes medication #BPH Stable Continue Flomax DVT prophylaxis Supratherapeutic INR CODE STATUS Full code
[2017-12-08] MEDS: [UNRECOGNIZED DRUG - REMARK] PO ONE ×2 (14:00→14:15)
[2017-12-08] MEDS: Calcium Carbonate 500 MG Tab.Chew PO PRN ×2 (17:38→22:01)
[2017-12-08] MEDS: Simvastatin 10 MG Tab PO SCH (21:53)
[2017-12-08] MEDS: Metoprolol Succinate 25 MG Tab.ER PO SCH (21:53)
[2017-12-08] MEDS: Sodium Chloride 0.9% 10 ML Syringe FLUSH PRN (21:54)
[2017-12-08] MEDS: Metoprolol Succinate 50 MG Tab.ER PO SCH (21:54)
[2017-12-09 07:18] VITALS: BP 124/59
[2017-12-09] MEDS: Insulin Aspart 100 Units/ML 3 ML Pen SUBCUT SCH ×2 (08:10→12:09)
[2017-12-09] MEDS: metFORMIN 500 MG Tab PO SCH (08:16)
[2017-12-09] MEDS: Glimepiride 2 MG Tab PO SCH (08:16)
[2017-12-09] MEDS: Sodium Chloride 0.9% 10 ML Syringe FLUSH PRN (08:17)
[2017-12-09] MEDS: Calcium Carbonate 500 MG Tab.Chew PO PRN (09:07)
[2017-12-09] MEDS: Finasteride 5 MG Tab PO SCH (09:07)
[2017-12-09] MEDS: Tamsulosin 0.4 MG Cap.ER PO SCH (09:08)
[2017-12-09] MEDS: Aspirin 81 MG Tab.EC PO SCH (09:08)
[2017-12-09] MEDS: Amiodarone 200 MG Tab PO SCH (09:08)
[2017-12-09] MEDS ORDERED: Polyethylene Glycol 3350 Powder 17 GM Packet PO ONE (09:47)
[2017-12-09] MEDS ORDERED: Magnesium Citrate Solution 296 ML Bottle PO ONE (09:47)
--- NOTE | 2017-12-09 09:56 | PCM.DCSUM1 ---
Discharge Summary - Hospital Course Free Text/Narrative:: 82-year-old male with past medical history of hypertension, type 2 diabetes on oral medications, atrial fibrillation on chronic anticoagulation, benign prostatic hyperplasia, who presents with shortness of breath and dizziness. Blood pressure was elevated on admission and he was managed as a case of acute hypoxic respiratory failure secondary to flash pulmonary edema from hypertension. #Acute hypoxic respiratory failure likely secondary to flash pulmonary edema from a hypertensive emergency, resolved Shortness of breath and BP has improved since admission He did not require IV antihypertensives Will need 2-D echo as an outpatient Will need renal artery Doppler as outpatient #Atrial fibrillation Rate control: Currently rate controlled, continue metoprolol Anticoagulation: continue coumadin at lower dose (1.25 mg daily) Check INR on Monday December 11, 2017. #Supratherapeutic INR Started amiodarone on November 22, 2017 Supratherapeutic INR is likely due to Coumadin interaction with amiodarone According to the literature, and increase in INR up to 44% has been noted with peak amiodarone effects on INR at up to 7 weeks INR trended down back to therapeutic levels during admission. The patient has no signs or symptoms of bleeding Continue coumadin at lower dose (1.25 mg daily) Check INR on Monday December 11, 2017. #Type 2 diabetes Continue oral diabetes medication #BPH Stable Continue Flomax - Discharge Data Discharge Date: 12/09/17 Discharge Disposition: Home, Self-Care 01 Condition: Good - Discharge Diagnosis/Problem(s) (1) Acute pulmonary edema SNOMED Code(s): 49465125 ICD Code: J81.0 - ACUTE PULMONARY EDEMA Status: Acute Current Visit: Yes (2) Elevated INR SNOMED Code(s): 522269154 ICD Code: R79.1 - ABNORMAL COAGULATION PROFILE Status: Acute Current Visit: Yes - Patient Instructions Diet: Regular Diet as Tolerated Activity: Full Weight Bearing Showering/Bathing: November Shower - Discharge Plan Home Medications: Home Meds Glimepiride [Amaryl] 4 mg PO WITHBREAKFAST 12/29/14 [History] Metoprolol Succinate [Toprol XL] 100 mg PO BEDTIME 12/29/14 [History] metFORMIN [Glucophage] 500 mg PO BIDMEALS 12/29/14 [History] Finasteride [Proscar] 5 mg PO DAILY 09/07/16 [History] Tamsulosin [Flomax] 0.4 mg PO DAILY 03/16/16 [History] Aspirin [Halfprin] 81 mg PO DAILY 04/04/17 [History] Amiodarone [Cordarone] 200 mg PO BID 12/06/17 [History] Metoprolol Succinate [Toprol XL] 25 mg PO BEDTIME 12/06/17 [History] Simvastatin [Zocor] 20 mg PO BEDTIME 12/06/17 [History] Warfarin [Coumadin] 1.25 mg PO DAILY #0 12/09/17 [Rx] Forms: ED Department Discharge Referrals: Katherine Montoya PA [Primary Care Provider] - - Discharge Summary/Plan Comment DC Time >30 min.: Yes - General Info Admission Dx/Problem (Free Text: Admission Diagnosis/Problem Admission Diagnosis/Problem Acute respiratory failure Subjective Update: 82-year-old male with past medical history of hypertension, type 2 diabetes and oral medication, atrial fibrillation on chronic anticoagulation, benign prostatic hyperplasia, who presents with shortness of breath, dizziness. Blood pressure was elevated on admission, he is being managed as a case of acute hypoxic respiratory failure secondary to flash pulmonary edema. Feels much better this morning Shortness of breath is improved INR is back to therapeutic levels - Review of Systems General: Reports: No Symptoms HEENT: Reports: No Symptoms Pulmonary: Reports: No Symptoms Cardiovascular: Reports: No Symptoms Gastrointestinal: Reports: No Symptoms Genitourinary: Reports: No Symptoms Musculoskeletal: Reports: No Symptoms - Patient Data Vitals - Most Recent: Last Vital Signs Temp 36.6 C 12/09/17 07:00 Pulse 71 12/09/17 07:00 Resp 20 12/09/17 07:00 BP 124/59 L 12/09/17 07:00 Pulse Ox 93 L 12/09/17 07:00 Weight - Most Recent: 80.649 kg I&O - Last 24 hours: Intake & Output 12/08/17 12/09/17 12/09/17 22:59 06:59 14:59 Intake Total 930 350 320 Output Total 500 500 Balance 430 -150 320 Lab Results - Last 24 hrs: Laboratory Results - last 24 hr 12/08/17 12/08/17 12/08/17 Range/Units 11:53 16:41 20:50 PT (9.0-12.0) SEC INR (0.9-1.2) POC Glucose 139 H 157 H 134 H (83-110) mg/dl 12/09/17 12/09/17 Range/Units 05:55 07:31 PT 24.3 H D (9.0-12.0) SEC INR 2.5 H (0.9-1.2) POC Glucose 108 (83-110) mg/dl Med Orders - Current: Current Medications Amiodarone HCl (Cordarone) 200 mg PO DAILY [facility] Last Admin: 12/09/17 09:08 Dose: 200 mg Aspirin (Halfprin) 81 mg PO DAILY [facility] Last Admin: 12/09/17 09:08 Dose: 81 mg Calcium Carbonate/Glycine (Tums) 500 mg PO TID PRN PRN Reason: Indigestion Last Admin: 12/09/17 09:07 Dose: 500 mg Finasteride (Proscar) 5 mg PO DAILY [facility] Last Admin: 12/09/17 09:07 Dose: 5 mg Glimepiride (Amaryl) 4 mg PO WITHBREAKFAST [facility] Last Admin: 12/09/17 08:16 Dose: 4 mg [facility] Last Admin: 12/09/17 08:10 Dose: Not Given Metformin HCl (Glucophage) 500 mg PO BIDMEALS [facility] Last Admin: 12/09/17 08:16 Dose: 500 mg Metoprolol Succinate (Toprol Xl) 100 mg PO BEDTIME [facility] Last Admin: 12/08/17 21:54 Dose: 100 mg Metoprolol Succinate (Toprol Xl) 25 mg PO BEDTIME [facility] Last Admin: 12/08/17 21:53 Dose: 25 mg Simvastatin (Zocor) 20 mg PO BEDTIME [facility] Last Admin: 12/08/17 21:53 Dose: 20 mg Sodium Chloride (Saline Flush) 10 ml FLUSH ASDIRECTED PRN PRN Reason: Keep Vein Open Last Admin: 12/09/17 08:17 Dose: 10 ml Tamsulosin HCl (Flomax) 0.4 mg PO DAILY [facility] Last Admin: 12/09/17 09:08 Dose: 0.4 mg Warfarin Sodium (Pharmacy To Dose - Warfarin) 1 dose .XX ASDIRECTED [facility] Warfarin Sodium (Coumadin) 2.5 mg PO ONETIME ONE Stop: 12/09/17 14:01 Discontinued Medications Amiodarone HCl (Cordarone) 200 mg PO BID [facility] Stop: 12/07/17 21:01 Last Admin: 12/07/17 21:18 Dose: 200 mg Amlodipine Besylate (Norvasc) 10 mg PO DAILY [facility] Last Admin: 12/07/17 08:23 Dose: 10 mg Furosemide (Lasix) 40 mg IVPUSH 0600,1800 [facility] Last Admin: 12/07/17 17:52 Dose: Not Given Magnesium Citrate (Citrate Of Magnesia) 150 ml PO ONETIME ONE Stop: 12/09/17 09:48 No Warfarin (Today ) 0 each PO ONETIME ONE Stop: 12/06/17 14:01 Last Admin: 12/06/17 14:35 Dose: Not Given No Warfarin (Today ) 0 each PO ONETIME ONE Stop: 12/07/17 14:01 Last Admin: 12/07/17 14:05 Dose: Not Given No Warfarin (*) 0 each PO ONETIME ONE Stop: 12/08/17 14:01 Last Admin: 12/08/17 14:15 Dose: Not Given Polyethylene Glycol (Miralax) 17 gm PO ONETIME ONE Stop: 12/09/17 09:48 - Exam General: Reports: Alert, Oriented HEENT: Reports: Pupils Equal Neck: Reports: Supple Lungs: Reports: Clear to Auscultation Cardiovascular: Reports: Regular Rate, Regular Rhythm GI/Abdominal Exam: Normal Bowel Sounds
[2017-12-09] MEDS ORDERED: Warfarin 2.5 MG Tab PO ONE (14:00)
--- NOTE | 2017-12-11 11:18 | PCM.SN ---
- Free Text/Narrative Note: Addendum to Discharge Summary Diagnosis: Acute Congestive Heart Failure We are unable to make the distinction between systolic and diastolic heart failure as 2D echo was not available to measure ejection fraction.
== END 2017-12-09 13:45 | disposition home or self-care (01) | DRG 291 ==
LOC: DL.ED 07:31 → DL.MS 09:58 → UNDOADMIN 09:58 → DL.MS 10:55
PROVIDERS: ADMIT Hospitalist; ATTEND Hospitalist
DX: I13.0 Hypertensive heart and chronic kidney disease with heart failure and stage 1 through stage 4 chronic kidney disease, or unspecified chronic kidney disease (principal); I11.0 Hypertensive heart disease with heart failure; J96.01 Acute respiratory failure with hypoxia; E11.22 Type 2 diabetes mellitus with diabetic chronic kidney disease; N18.9 Chronic kidney disease, unspecified; K21.9 Gastro-esophageal reflux disease without esophagitis; I16.1 Hypertensive emergency; I50.9 Heart failure, unspecified; H54.7 Unspecified visual loss; N42.9 Disorder of prostate, unspecified; E11.9 Type 2 diabetes mellitus without complications; I48.91 Unspecified atrial fibrillation; E78.00 Pure hypercholesterolemia, unspecified; N40.0 Benign prostatic hyperplasia without lower urinary tract symptoms; I25.10 Atherosclerotic heart disease of native coronary artery without angina pectoris; L57.0 Actinic keratosis; M19.90 Unspecified osteoarthritis, unspecified site; Z86.73 Personal history of transient ischemic attack (TIA), and cerebral infarction without residual deficits; R79.1 Abnormal coagulation profile; Z79.01 Long term (current) use of anticoagulants; Z79.84 Long term (current) use of oral hypoglycemic drugs; Z79.899 Other long term (current) drug therapy; Z95.1 Presence of aortocoronary bypass graft; Z79.82 Long term (current) use of aspirin; Z95.0 Presence of cardiac pacemaker; Z87.891 Personal history of nicotine dependence
CPT/HCPCS: 36415; 71045; 80048; 80053; 80076; 81001; 82962; 83880; 84484; 85025; 85379; 85610; 93005; 93010; 99284; 99285; A9270-GY; J1815-GY; J1940; J7050

== ENCOUNTER 2018-04-07 08:00 | Emergency (ER) | payer MEDICARE, BC ==
[2018-04-07 08:20] VITALS: BP 149/72
--- NOTE | 2018-04-07 08:27 | EDM.PDOC ---
ED HPI GENERAL MEDICAL PROBLEM - General Chief Complaint: General Stated Complaint: FEEL SICK [id number] Time Seen by Provider: 04/07/18 08:27 Source of Information: Reports: Patient, Family, RN, RN Notes Reviewed - History of Present Illness INITIAL COMMENTS - FREE TEXT/NARRATIVE: Pt presents to ER with his daughter with c/o chest pains, belching, weakness, feeling sweaty, since about 2am. He states he woke about 2am with a generalized (vague) chest pain and feeling of sweaty. He denies radiation of the pain, but states he was having some belching and gas. He denies N/V/D, SOB at the time of event, fever or chills. Patient states he was started on a new medication prior to December and he states he just has not felt good since then. His doctor in [place] has decreased the medication once. Onset: Today, Sudden - Related Data Allergies Allergy/AdvReac Type Severity Reaction Status Date / Time Iodinated Contrast- Oral and Allergy Cannot Verified 04/07/18 08:16 IV Dye Remember [Iodinated Contrast Media - IV Dye] niacin Allergy Cannot Verified 04/07/18 08:16 Remember Home Meds: Home Meds Glimepiride [Amaryl] 4 mg PO WITHBREAKFAST 12/29/14 [History] Metoprolol Succinate [Toprol XL] 100 mg PO BEDTIME 12/29/14 [History] metFORMIN [Glucophage] 500 mg PO BIDMEALS 12/29/14 [History] Finasteride [Proscar] 5 mg PO DAILY 03/16/16 [History] Tamsulosin [Flomax] 0.4 mg PO DAILY 03/16/16 [History] Aspirin [Halfprin] 81 mg PO DAILY 04/04/17 [History] Amiodarone [Cordarone] 200 mg PO BID 12/06/17 [History] Metoprolol Succinate [Toprol XL] 25 mg PO BEDTIME 12/06/17 [History] Simvastatin [Zocor] 20 mg PO BEDTIME 12/06/17 [History] Warfarin [Coumadin] 1.25 mg PO DAILY #0 12/09/17 [Rx] Past Medical History HEENT History: Reports: Cataract, Impaired Vision Cardiovascular History: Reports: Afib, CAD, High Cholesterol, Hypertension, Pacemaker Respiratory History: Reports: SOB Gastrointestinal History: Reports: GERD Genitourinary History: Reports: Chronic Renal Insuffiency, Prostate Disorder, Other (See Below) Other Genitourinary History: bladder spasms Musculoskeletal History: Reports: Fracture, Osteoarthritis Neurological History: Reports: TIA Psychiatric History: Reports: None Endocrine/Metabolic History: Reports: Diabetes, Type II Hematologic History: Reports: None Immunologic History: Reports: None Oncologic (Cancer) History: Reports: None Dermatologic History: Reports: Other (See Below) Other Dermatologic History: actinic keratosis - Infectious Disease History Infectious Disease History: Reports: Chicken Pox, Measles, Mumps, Shingles - Past Surgical History HEENT Surgical History: Reports: Adenoidectomy, Cataract Surgery, Tonsillectomy Cardiovascular Surgical History: Reports: Coronary Artery Bypass GI Surgical History: Reports: None Male Surgical History: Reports: Other (See Below) Other Male Surgeries/Procedures: cystourethroscopy, nephrolithiasis Endocrine Surgical History: Reports: None Neurological Surgical History: Reports: None Musculoskeletal Surgical History: Reports: None Dermatological Surgical History: Reports: None Social & Family History - Family History Family Medical History: Noncontributory - Tobacco Use Smoking Status *Q: Former Smoker Used Tobacco, but Quit: Yes Month/Year Tobacco Last Used: 1997 - Caffeine Use Caffeine Use: Reports: Coffee - Recreational Drug Use Recreational Drug Use: No ED ROS GENERAL - Review of Systems Review Of Systems: ROS reveals no pertinent complaints other than HPI. ED EXAM, GENERAL - Physical Exam Exam: See Below Exam Limited By: No Limitations General Appearance: Alert, WD/WN, No Apparent Distress Eye Exam: Bilateral Eye: EOMI, Normal Inspection Ears: Normal External Exam, Hearing Grossly Normal Nose: Normal Inspection Throat/Mouth: Normal Inspection, Normal Voice, No Airway Compromise Head: Atraumatic, Normocephalic Neck: Normal Inspection, Supple, Non-Tender, Full Range of Motion Respiratory/Chest: No Respiratory Distress, No Accessory Muscle Use, Decreased Breath Sounds Cardiovascular: Normal Peripheral Pulses, Regular Rate, Rhythm, No Edema, No Gallop, No JVD, No Murmur, No Rub Peripheral Pulses: 2+: Radial (L), Radial (R) GI/Abdominal: Normal Bowel Sounds, Soft, Non-Tender (Male) Exam: Deferred Rectal (Males) Exam: Deferred Back Exam: Normal Inspection, Full Range of Motion Extremities: Normal Inspection, Normal Range of Motion, Non-Tender, No Pedal Edema, Normal Capillary Refill Neurological: Alert, Oriented, CN II-XII Intact, Normal Cognition, Normal Reflexes, No Motor/Sensory Deficits Psychiatric: Normal Affect, Normal Mood Skin Exam: Warm, Dry, Intact, Normal Color, No Rash Lymphatic: No Adenopathy EKG INTERPRETATION EKG Date: 04/07/18 Time: 08:47 Rhythm: NSR Rate (Beats/Min): 92 Comparison: No Change Course - Vital Signs Last Recorded V/S: Last Vital Signs Temp 97.6 F 04/07/18 08:16 Pulse 95 04/07/18 08:16 Resp 18 04/07/18 08:16 BP 149/72 H 04/07/18 08:16 Pulse Ox 94 L 04/07/18 08:16 - Orders/Labs/Meds Orders: Active Orders 24 hr Category Date Time Status EKG Documentation Completion [RC] STAT Care 04/07/18 08:40 Active Peripheral IV Care [RC] . DIRECTED Care 04/07/18 09:48 Active Chest 1V Frontal [CR] Stat Exams 04/07/18 08:41 Taken UA W/MICROSCOPIC [URIN] Stat Lab 04/07/18 08:41 Ordered Sodium Chloride 0.9% [Saline Flush] Med 04/07/18 09:48 Active 10 ml FLUSH ASDIRECTED PRN Peripheral IV Insertion Adult [OM.PC] Stat Oth 04/07/18 09:48 Ordered Medication Orders Sodium Chloride (Saline Flush) 10 ml FLUSH ASDIRECTED PRN PRN Reason: Keep Vein Open Last Admin: 04/07/18 09:54 Dose: 10 ml Labs: Laboratory Tests 04/07/18 04/07/18 04/07/18 Range/Units 08:51 08:51 08:51 WBC 8.0 (5.0-10.0) 10^3/uL RBC 5.08 (4.6-6.2) 10^6/uL Hgb 13.6 L (14.0-18.0) g/dL Hct 43.7 (40.0-54.0) % MCV 86.0 (80-100) fL MCH 26.8 L (27.0-34.0) pg MCHC 31.1 L (33.0-35.0) g/dL Plt Count 144 L (150-450) 10^3/uL Neut % (Auto) 79.0 H (42.2-75.2) % Lymph % (Auto) 12.2 L (20.5-50.1) % [place] % (Auto) 7.5 (2-8) % Eos % (Auto) 0.9 L (1.0-3.0) % Baso % (Auto) 0.4 (0.0-1.0) % PT 23.3 H (9.0-12.0) SEC INR 2.4 H (0.9-1.2) Sodium 141 (135-145) mmol/L Potassium 3.7 (3.6-5.0) mmol/L Chloride 102 (101-111) mmol/L Carbon Dioxide 28.0 (21.0-31.0) mmol/L Anion Gap 14.7 BUN 20 H (7-18) mg/dL Creatinine 1.1 (0.6-1.3) mg/dL Est Cr Clr Drug Dosing 56.83 mL/min Estimated GFR (MDRD) > 60 BUN/Creatinine Ratio 18.18 Glucose 172 H (74-105) mg/dL Calcium 9.3 (8.4-10.2) mg/dl Total Bilirubin 0.7 (0.2-1.0) mg/dL AST 19 (10-42) IU/L ALT 13 (10-60) IU/L Alkaline Phosphatase 67 (42-121) IU/L Troponin I 0.12 H* (0.00-0.02) ng/ml Total Protein 7.3 (6.7-8.2) g/dl Albumin 4.2 (3.2-5.5) g/dl Globulin 3.1 Albumin/Globulin Ratio 1.35 Meds: Medications Generic Name Dose Route Start Last Admin Trade Name Freq PRN Reason Stop Dose Admin Sodium Chloride 10 ml 04/07/18 09:48 04/07/18 09:54 Saline Flush FLUSH 10 ml ASDIRECTED PRN Administration Keep Vein Open Discontinued Medications Generic Name Dose Route Start Last Admin Trade Name Freq PRN Reason Stop Dose Admin Aspirin 324 mg 04/07/18 09:43 04/07/18 09:48 Aspirin PO 04/07/18 09:44 324 mg ONETIME ONE Administration - Radiology Interpretation Free Text/Narrative:: Chest xray: IMPRESSION: No acute abnormality. Thank you for allowing us to participate in the care of your patient. Dictated and Authenticated by: Waylon Yanez MD 04/07/2018 10:28 AM Central Time ([place] & [place]) See rad report - Re-Assessments/Exams Free Text/Narrative Re-Assessment/Exam: 04/07/18 10:39 Delay of transfer due to transport issues. Departure - Departure Time of Disposition: 09:46 Disposition: Home, Self-Care 01 Condition: Fair Clinical Impression: NSTEMI (non-ST elevated myocardial infarction) - Discharge Information *PRESCRIPTION DRUG MONITORING PROGRAM REVIEWED*: No *COPY OF PRESCRIPTION DRUG MONITORING REPORT IN PATIENT SUZY: No Referrals: PCP,None [Primary Care Provider] - Forms: ED Department Discharge, Interfacility Transfer EMTALA - My Orders Last 24 Hours: My Active Orders 04/07/18 08:40 EKG Documentation Completion [RC] STAT 04/07/18 08:41 Chest 1V Frontal [CR] Stat UA W/MICROSCOPIC [URIN] Stat 04/07/18 09:48 Peripheral IV Care [RC] . DIRECTED Sodium Chloride 0.9% [Saline Flush] 10 ml FLUSH ASDIRECTED PRN Peripheral IV Insertion Adult [OM.PC] Stat - Assessment/Plan Last 24 Hours: My Active Orders 04/07/18 08:40 EKG Documentation Completion [RC] STAT 04/07/18 08:41 Chest 1V Frontal [CR] Stat UA W/MICROSCOPIC [URIN] Stat 04/07/18 09:48 Peripheral IV Care [RC] . DIRECTED Sodium Chloride 0.9% [Saline Flush] 10 ml FLUSH ASDIRECTED PRN Peripheral IV Insertion Adult [OM.PC] Stat
[2018-04-07 09:18] LABS: ANION GAP 14.7; CHLORIDE,CL 102 mmol/L (101-111); SODIUM,NA 141 mmol/L (135-145)
[2018-04-07] MEDS: Aspirin 81 MG Tab.Chew PO ONE (09:48)
[2018-04-07] MEDS: Sodium Chloride 0.9% 10 ML Syringe FLUSH PRN (09:54)
== END 2018-04-07 10:43 | disposition home or self-care (01) ==
LOC: DL.ED 08:00
DX: I21.4 Non-ST elevation (NSTEMI) myocardial infarction (principal); I12.9 Hypertensive chronic kidney disease with stage 1 through stage 4 chronic kidney disease, or unspecified chronic kidney disease; E11.22 Type 2 diabetes mellitus with diabetic chronic kidney disease; N18.9 Chronic kidney disease, unspecified; Z88.8 Allergy status to other drugs, medicaments and biological substances; Z79.82 Long term (current) use of aspirin; Z79.84 Long term (current) use of oral hypoglycemic drugs; Z79.899 Other long term (current) drug therapy; Z91.041 Radiographic dye allergy status; Z87.891 Personal history of nicotine dependence
CPT/HCPCS: 36415; 71045; 80053; 81001; 84484; 85025; 85610; 93005; 99285; A9270; J7050

== ENCOUNTER 2019-07-30 08:04 | Emergency (ER) | payer MEDICARE, BC ==
[2019-07-30 08:13] VITALS: BP 155/97; PULSE 86
--- NOTE | 2019-07-30 08:43 | EDM.PDOC ---
ED HPI GENERAL MEDICAL PROBLEM - General Chief Complaint: Genitourinary Problem Stated Complaint: CANNOT PEE Time Seen by Provider: 07/30/19 08:30 Source of Information: Reports: Patient History Limitations: Reports: No Limitations - History of Present Illness INITIAL COMMENTS - FREE TEXT/NARRATIVE: This 83 yo male patient reports to the ED due to not being able to urinate. The patient reports he has been having frequent urination. The patient brought in a urine sample to the [facility] yesterday and was started on an antibiotic for a UTI. The patient reports this morning he has not been able to urinate at all. The patient reports some increased pressure in the lower abdomen. The patient reports no previous similar symptoms. Onset: Today Onset Date: 07/30/19 Onset Time: 04:30 Duration: Constant Location: Reports: Abdomen (lower) Quality: Reports: Other Severity: Moderate Improves with: Reports: None Worsens with: Reports: None Context: Reports: Other - Related Data Allergies Allergy/AdvReac Type Severity Reaction Status Date / Time Iodinated Contrast Media Allergy Cannot Verified 07/30/19 08:13 [Iodinated Contrast Media - Remember IV Dye] niacin Allergy Cannot Verified 07/30/19 08:13 Remember Home Meds: Home Meds Metoprolol Succinate [Toprol XL] 100 mg PO DAILY 12/29/14 [History] metFORMIN [Glucophage] 500 mg PO BID 12/29/14 [History] Finasteride [Proscar] 5 mg PO DAILY 03/16/16 [History] Tamsulosin [Flomax] 0.4 mg PO DAILY 03/16/16 [History] Furosemide [Lasix] 40 mg PO DAILY 04/27/18 [History] Nitroglycerin [Nitrostat] 0.4 mg SL ASDIRECTED PRN 04/27/18 [History] Umeclidinium Brm/Vilanterol Tr [Anoro Ellipta 62.5-25 MCG] 1 puff IH DAILY 04/27 [History] atorvaSTATin [Lipitor] 40 mg PO DAILY 04/27/18 [History] Apixaban [Eliquis] 2.5 mg PO BID 07/04/18 [History] Digoxin 125 mcg PO DAILY 07/04/18 [History] ramipriL [Ramipril] 2.5 mg PO DAILY 07/04/18 [History] Clopidogrel [Plavix] 75 mg PO DAILY 07/27/18 [History] Ciprofloxacin HCl 250 mg PO BID 07/30/19 [History] Past Medical History HEENT History: Reports: Cataract, Impaired Vision Cardiovascular History: Reports: Afib, CAD, High Cholesterol, Hypertension, Pacemaker Respiratory History: Reports: SOB Gastrointestinal History: Reports: GERD Genitourinary History: Reports: Chronic Renal Insuffiency, Prostate Disorder, Other (See Below) Other Genitourinary History: bladder spasms Musculoskeletal History: Reports: Fracture, Osteoarthritis Neurological History: Reports: TIA Psychiatric History: Reports: None Endocrine/Metabolic History: Reports: Diabetes, Type II Hematologic History: Reports: None Immunologic History: Reports: None Oncologic (Cancer) History: Reports: None Dermatologic History: Reports: Other (See Below) Other Dermatologic History: actinic keratosis - Infectious Disease History Infectious Disease History: Reports: Chicken Pox, Measles, Mumps, Shingles - Past Surgical History HEENT Surgical History: Reports: Adenoidectomy, Cataract Surgery, Tonsillectomy Cardiovascular Surgical History: Reports: Coronary Artery Bypass GI Surgical History: Reports: None Male Surgical History: Reports: Other (See Below) Other Male Surgeries/Procedures: cystourethroscopy, nephrolithiasis Endocrine Surgical History: Reports: None Neurological Surgical History: Reports: None Musculoskeletal Surgical History: Reports: None Dermatological Surgical History: Reports: None Social & Family History - Family History Family Medical History: Noncontributory - Tobacco Use Smoking Status *Q: Never Smoker Second Hand Smoke Exposure: No - Caffeine Use Caffeine Use: Reports: Coffee, Soda - Recreational Drug Use Recreational Drug Use: No ED ROS GENERAL - Review of Systems Review Of Systems: Comprehensive ROS is negative, except as noted in HPI. ED EXAM, RENAL/ - Physical Exam Exam: See Below Exam Limited By: No Limitations General Appearance: Alert, WD/WN, Moderate Distress Eye Exam: Bilateral Eye: EOMI, Normal Inspection, PERRL Ears: Normal External Exam, Normal Canal, Hearing Grossly Normal, Normal TMs Nose: Normal Inspection, Normal Mucosa, No Blood Throat/Mouth: Normal Inspection, Normal Lips, Normal Teeth, Normal Gums, Normal Oropharynx, Normal Voice, No Airway Compromise Head: Atraumatic, Normocephalic Neck: Normal Inspection, Supple, Non-Tender, Full Range of Motion Respiratory/Chest: No Respiratory Distress, Lungs Clear, Normal Breath Sounds, No Accessory Muscle Use, Chest Non-Tender Cardiovascular: Normal Peripheral Pulses, Regular Rate, Rhythm, No Edema, No Gallop, No JVD, No Murmur, No Rub GI/Abdominal: Normal Bowel Sounds, Soft, No Organomegaly, No Distention, No Abnormal Bruit, No Mass, Pelvis Stable, Tender (lower abdomen) (Male) Exam: Deferred Rectal (Males) Exam: Deferred Back Exam: Normal Inspection, Full Range of Motion, NT Extremities: Normal Inspection, Normal Range of Motion, Non-Tender, Normal Capillary Refill, No Pedal Edema Neurological: Alert, Oriented, CN II-XII Intact, Normal Cognition, Normal Gait, Normal Reflexes, No Motor/Sensory Deficits Psychiatric: Normal Affect, Normal Mood Skin Exam: Warm, Dry, Intact, Normal Color, No Rash Lymphatic: No Adenopathy Course - Vital Signs Last Recorded V/S: Last Vital Signs Temp 36.1 C 07/30/19 08:10 Pulse 86 07/30/19 08:10 Resp 18 07/30/19 08:10 BP 155/97 H 07/30/19 08:10 Pulse Ox 93 L 07/30/19 08:10 - Orders/Labs/Meds Orders: Active Orders 24 hr Category Date Time Status Urinary Catheter Assessment [RC] ASDIRECTED Care 07/30/19 08:42 Active Urinary Catheter Insertion [Insert Urinary Catheter] [ Care 07/30/19 08:45 Ordered OM.PC] Q24H Departure - Departure Time of Disposition: 09:02 Disposition: Home, Self-Care 01 Condition: Fair Clinical Impression: Urinary (tract) obstruction - Discharge Information *PRESCRIPTION DRUG MONITORING PROGRAM REVIEWED*: Not Applicable *COPY OF PRESCRIPTION DRUG MONITORING REPORT IN PATIENT SUZY: Not Applicable Forms: ED Department Discharge Care Plan Goals: The patient was advised of the examination results during the visit. The patient was discharged with a catheter in place. The patient was encouraged to follow-up with his primary care facility to have the catheter removed. If the patient has any additional symptoms or concerns, the patient should either return to the emergency department or visit his primary care facility. Sepsis Event Note - Evaluation Sepsis Screening Result: No Definite Risk - Focused Exam Vital Signs: Vital Signs Temp Pulse Resp BP Pulse Ox 07/30/19 08:10 36.1 C 86 18 155/97 H 93 L Date Exam was Performed: 07/30/19 Time Exam was Performed: 08:58 - My Orders Last 24 Hours: My Active Orders 07/30/19 08:42 Urinary Catheter Assessment [RC] ASDIRECTED 07/30/19 08:45 Urinary Catheter Insertion [Insert Urinary Catheter] [OM.PC] Q24H - Assessment/Plan Last 24 Hours: My Active Orders 07/30/19 08:42 Urinary Catheter Assessment [RC] ASDIRECTED 07/30/19 08:45 Urinary Catheter Insertion [Insert Urinary Catheter] [OM.PC] Q24H
== END 2019-07-30 09:10 | disposition home or self-care (01) ==
LOC: DL.ED 08:04
DX: N13.9 Obstructive and reflux uropathy, unspecified (principal); I25.10 Atherosclerotic heart disease of native coronary artery without angina pectoris; E78.00 Pure hypercholesterolemia, unspecified; I48.91 Unspecified atrial fibrillation; K21.9 Gastro-esophageal reflux disease without esophagitis; I12.9 Hypertensive chronic kidney disease with stage 1 through stage 4 chronic kidney disease, or unspecified chronic kidney disease; E11.22 Type 2 diabetes mellitus with diabetic chronic kidney disease; N18.9 Chronic kidney disease, unspecified; M19.90 Unspecified osteoarthritis, unspecified site; Z86.73 Personal history of transient ischemic attack (TIA), and cerebral infarction without residual deficits; Z95.1 Presence of aortocoronary bypass graft; Z91.041 Radiographic dye allergy status; Z88.8 Allergy status to other drugs, medicaments and biological substances; Z79.84 Long term (current) use of oral hypoglycemic drugs; Z79.01 Long term (current) use of anticoagulants; Z79.899 Other long term (current) drug therapy; Z79.02 Long term (current) use of antithrombotics/antiplatelets
CPT/HCPCS: 51702; 99283-25

== ENCOUNTER 2019-09-12 12:06 | Emergency (ER) | payer MEDICARE, BC ==
[2019-09-12] MEDS ORDERED: Sodium Chloride 0.9% 10 ML Syringe FLUSH PRN (12:14)
--- NOTE | 2019-09-12 12:35 | EDM.PDOC ---
<Lola Colon - Last Filed: 09/12/19 14:22> ED HPI GENERAL MEDICAL PROBLEM - General Chief Complaint: Cardiovascular Problem Stated Complaint: Palpitations Time Seen by Provider: 09/12/19 12:30 Source of Information: Reports: Patient History Limitations: Reports: No Limitations - History of Present Illness INITIAL COMMENTS - FREE TEXT/NARRATIVE: Patient presents to the ED from cardiac rehab with concerns of increase heart rate and shortness of breath. The patient notes that his heart rate had increased to the 130's while at rehab. The patient has been participating in cardiac rehab for several months and denies doing anything of harder intensity than usual. The patient denies any chest pain or recent episodes of chest pain. He reports that he has experienced a cough for the past couple days but otherwise has felt well. The patient does have chronic a fib which is rate controlled with metoprolol. He is also on eliquis. 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 His check pilot is Dr Lee. Onset: Today Duration: Constant Location: Reports: Chest Improves with: Reports: None Worsens with: Reports: None Context: Reports: Activity Associated Symptoms: Reports: Shortness of Breath - Related Data Allergies Allergy/AdvReac Type Severity Reaction Status Date / Time Iodinated Contrast Media Allergy Cannot Verified 09/12/19 12:55 [Iodinated Contrast Media - Remember IV Dye] niacin Allergy Cannot Verified 09/12/19 12:55 Remember Home Meds: Home Meds Metoprolol Succinate [Toprol XL] 100 mg PO DAILY 12/29/14 [History] metFORMIN [Glucophage] 500 mg PO BID 12/29/14 [History] Finasteride [Proscar] 5 mg PO DAILY 03/16/16 [History] Tamsulosin [Flomax] 0.4 mg PO DAILY 03/16/16 [History] Furosemide [Lasix] 40 mg PO DAILY 04/27/18 [History] Nitroglycerin [Nitrostat] 0.4 mg SL ASDIRECTED PRN 04/27/18 [History] Umeclidinium Brm/Vilanterol Tr [Anoro Ellipta 62.5-25 MCG] 1 puff IH DAILY 04/27 [History] atorvaSTATin [Lipitor] 40 mg PO DAILY 04/27/18 [History] Apixaban [Eliquis] 2.5 mg PO BID 07/04/18 [History] Digoxin 125 mcg PO DAILY 07/04/18 [History] ramipriL [Ramipril] 2.5 mg PO DAILY 07/04/18 [History] Clopidogrel [Plavix] 75 mg PO DAILY 07/27/18 [History] Ciprofloxacin HCl 250 mg PO BID 07/30/19 [History] Apixaban [Eliquis] 2.5 mg PO BID 09/12/19 [History] Finasteride 5 mg PO DAILY 09/12/19 [History] Omeprazole 20 mg PO DAILY 09/12/19 [History] Past Medical History HEENT History: Reports: Cataract, Impaired Vision Cardiovascular History: Reports: Afib, CAD, High Cholesterol, Hypertension, Pacemaker Respiratory History: Reports: SOB Gastrointestinal History: Reports: GERD Genitourinary History: Reports: Chronic Renal Insuffiency, Prostate Disorder, Other (See Below) Other Genitourinary History: bladder spasms Musculoskeletal History: Reports: Fracture, Osteoarthritis Neurological History: Reports: TIA Psychiatric History: Reports: None Endocrine/Metabolic History: Reports: Diabetes, Type II Hematologic History: Reports: None Immunologic History: Reports: None Oncologic (Cancer) History: Reports: None Dermatologic History: Reports: Other (See Below) Other Dermatologic History: actinic keratosis - Infectious Disease History Infectious Disease History: Reports: Chicken Pox, Measles, Mumps, Shingles - Past Surgical History HEENT Surgical History: Reports: Adenoidectomy, Cataract Surgery, Tonsillectomy Cardiovascular Surgical History: Reports: Coronary Artery Bypass GI Surgical History: Reports: None Male Surgical History: Reports: Other (See Below) Other Male Surgeries/Procedures: cystourethroscopy, nephrolithiasis Endocrine Surgical History: Reports: None Neurological Surgical History: Reports: None Musculoskeletal Surgical History: Reports: None Dermatological Surgical History: Reports: None Social & Family History - Family History Family Medical History: Noncontributory - Caffeine Use Caffeine Use: Reports: Coffee, Soda ED ROS GENERAL - Review of Systems Review Of Systems: See Below Constitutional: Denies: Fever, Chills Respiratory: Reports: Shortness of Breath, Wheezing, Cough Cardiovascular: Reports: Palpitations. Denies: Chest Pain, Syncope GI/Abdominal: Denies: Abdominal Pain, Bloody Stool, Constipation, Diarrhea : Denies: Dysuria, Frequency, Hematuria, Urgency Neurological: Denies: Dizziness, Headache ED EXAM, GENERAL - Physical Exam Exam: See Below Exam Limited By: No Limitations General Appearance: Alert, No Apparent Distress Head: Atraumatic, Normocephalic Neck: No: Carotid Bruit Respiratory/Chest: No Respiratory Distress, Lungs Clear, Normal Breath Sounds Cardiovascular: No Murmur, Irregularly Irregular GI/Abdominal: Normal Bowel Sounds, Soft, Non-Tender Extremities: Normal Capillary Refill Neurological: Alert, Oriented Psychiatric: Normal Affect, Normal Mood EKG INTERPRETATION EKG Date: 09/12/19 Time: 12:15 Rhythm: A-Fib Rate (Beats/Min): 107 [place]: LAD-Left [place] Deviation P-Wave: Present QRS: Normal ST-T: Normal QT: Normal Course - Vital Signs Last Recorded V/S: Last Vital Signs Temp 97.8 F 09/12/19 12:07 Pulse 101 H 09/12/19 13:56 Resp 24 H 09/12/19 12:07 BP 145/66 H 09/12/19 13:56 Pulse Ox 94 L 09/12/19 12:07 - Orders/Labs/Meds Orders: Active Orders 24 hr Category Date Time Status EKG 12 Lead [EKG Documentation Completion] [RC] STAT Care 09/12/19 12:13 Active Peripheral IV Care [RC] . DIRECTED Care 09/12/19 12:14 Active CULTURE BLOOD [BC] Stat Lab 09/12/19 12:45 Received Sodium Chloride 0.9% [Saline Flush] Med 09/12/19 12:14 Active 10 ml FLUSH ASDIRECTED PRN Peripheral IV Insertion Adult [OM.PC] Stat Oth 09/12/19 12:13 Ordered Medication Orders Sodium Chloride (Saline Flush) 10 ml FLUSH ASDIRECTED PRN PRN Reason: Keep Vein Open Labs: Laboratory Tests 09/12/19 09/12/19 09/12/19 Range/Units 12:45 12:45 12:45 WBC 6.4 (5.0-10.0) 10^3/uL RBC 4.65 (4.6-6.2) 10^6/uL Hgb 12.0 L (14.0-18.0) g/dL Hct 38.0 L (40.0-54.0) % MCV 81.7 D (80-100) fL MCH 25.8 L (27.0-34.0) pg MCHC 31.6 L (33.0-35.0) g/dL Plt Count 168 (150-450) 10^3/uL Neut % (Auto) 77.2 H (42.2-75.2) % Lymph % (Auto) 11.3 L (20.5-50.1) % Grand % (Auto) 9.8 H (2-8) % Eos % (Auto) 1.1 (1.0-3.0) % Baso % (Auto) 0.6 (0.0-1.0) % Sodium 139 (135-145) mmol/L Potassium 3.9 (3.6-5.0) mmol/L Chloride 105 (101-111) mmol/L Carbon Dioxide 24.0 (21.0-31.0) mmol/L Anion Gap 13.9 BUN 16 (7-18) mg/dL Creatinine 0.9 (0.6-1.3) mg/dL Est Cr Clr Drug Dosing 66.63 mL/min Estimated GFR (MDRD) > 60 BUN/Creatinine Ratio 17.77 Glucose 204 H (74-105) mg/dL Lactic Acid 2.6 H* (0.5-2.0) mmol/L Calcium 9.0 (8.4-10.2) mg/dl Total Bilirubin 1.4 H (0.2-1.0) mg/dL AST 16 (10-42) IU/L ALT 10 (10-60) IU/L Alkaline Phosphatase 388 H (42-121) IU/L Troponin I < 0.02 (0.00-0.02) ng/ml B-Natriuretic Peptide 326 H (0-100) pg/ml Total Protein 7.0 (6.7-8.2) g/dl Albumin 4.0 (3.2-5.5) g/dl Globulin 3.0 Albumin/Globulin Ratio 1.33 Digoxin (0-2.5) ng/ml 09/12/19 Range/Units 12:45 WBC (5.0-10.0) 10^3/uL RBC (4.6-6.2) 10^6/uL Hgb (14.0-18.0) g/dL Hct (40.0-54.0) % MCV (80-100) fL MCH (27.0-34.0) pg MCHC (33.0-35.0) g/dL Plt Count (150-450) 10^3/uL Neut % (Auto) (42.2-75.2) % Lymph % (Auto) (20.5-50.1) % Grand % (Auto) (2-8) % Eos % (Auto) (1.0-3.0) % Baso % (Auto) (0.0-1.0) % Sodium (135-145) mmol/L Potassium (3.6-5.0) mmol/L Chloride (101-111) mmol/L Carbon Dioxide (21.0-31.0) mmol/L Anion Gap BUN (7-18) mg/dL Creatinine (0.6-1.3) mg/dL Est Cr Clr Drug Dosing mL/min Estimated GFR (MDRD) BUN/Creatinine Ratio Glucose (74-105) mg/dL Lactic Acid (0.5-2.0) mmol/L Calcium (8.4-10.2) mg/dl Total Bilirubin (0.2-1.0) mg/dL AST (10-42) IU/L ALT (10-60) IU/L Alkaline Phosphatase (42-121) IU/L Troponin I (0.00-0.02) ng/ml B-Natriuretic Peptide (0-100) pg/ml Total Protein (6.7-8.2) g/dl Albumin (3.2-5.5) g/dl Globulin Albumin/Globulin Ratio Digoxin 1.3 (0-2.5) ng/ml Meds: Medications Generic Name Dose Route Start Last Admin Trade Name Freq PRN Reason Stop Dose Admin Sodium Chloride 10 ml 09/12/19 12:14 Saline Flush FLUSH ASDIRECTED PRN Keep Vein Open Discontinued Medications Generic Name Dose Route Start Last Admin Trade Name Freq PRN Reason Stop Dose Admin Metoprolol Succinate 50 mg 09/12/19 13:46 09/12/19 13:56 Toprol Xl PO 09/12/19 13:47 50 mg ONETIME ONE Administration Departure - Departure Disposition: Home, Self-Care 01 Clinical Impression: Atrial fibrillation with rapid ventricular response Instructions: Atrial Fibrillation, [id number] Forms: ED Department Discharge Additional Instructions: Take Metoprolol 150mg once every morning (discontinue the Metoprolol 100mg in the evening). Call [facility] today to schedule an appointment with Dr. Lee. Sepsis Event Note - Focused Exam Vital Signs: Vital Signs Temp Pulse Pulse Resp BP BP Pulse Ox 09/12/19 13:56 101 H 145/66 H 09/12/19 12:07 97.8 F 114 H 24 H 128/74 94 L Date Exam was Performed: 09/12/19 Time Exam was Performed: 14:22 - My Orders Last 24 Hours: My Active Orders 09/12/19 12:13 EKG 12 Lead [EKG Documentation Completion] [RC] STAT Peripheral IV Insertion Adult [OM.PC] Stat 09/12/19 12:14 Peripheral IV Care [RC] . DIRECTED Sodium Chloride 0.9% [Saline Flush] 10 ml FLUSH ASDIRECTED PRN 09/12/19 12:45 CULTURE BLOOD [BC] Stat - Assessment/Plan Last 24 Hours: My Active Orders 09/12/19 12:13 EKG 12 Lead [EKG Documentation Completion] [RC] STAT Peripheral IV Insertion Adult [OM.PC] Stat 09/12/19 12:14 Peripheral IV Care [RC] . DIRECTED Sodium Chloride 0.9% [Saline Flush] 10 ml FLUSH ASDIRECTED PRN 09/12/19 12:45 CULTURE BLOOD [BC] Stat <Hugo Cameron - Last Filed: 09/12/19 14:23> Course - Re-Assessments/Exams Free Text/Narrative Re-Assessment/Exam: 09/12/19 I personally performed or re-performed the physical examination and medical decision making. I have verified all student documentation or findings, including history, physical exam and/or medical decision making. Free Text/Narrative Re-Assessment/Exam: 09/12/19 13:55 I consulted cardiology via [facility]. Dr. Lee advises to give the pt Metoprolol 50mg po x1 now, and have him move his daily Metoprolol from bedtime to morning dosing, and to increase to 150mg daily. Pt is instructed to call [facility] today to schedule an appointment with Dr. Lee. Departure - Departure Time of Disposition: 13:56 Condition: Good Sepsis Event Note - Focused Exam Date Exam was Performed: 09/12/19 Time Exam was Performed: 14:22
[2019-09-12 13:16] LABS: ANION GAP 13.9; CHLORIDE,CL 105 mmol/L (101-111); SODIUM,NA 139 mmol/L (135-145)
[2019-09-12] MEDS ORDERED: Metoprolol Succinate 50 MG Tab.ER PO ONE (13:46)
--- NOTE | 2019-09-12 13:52 | CR ---
EXAMINATION: Chest 1V Frontal SEX: Male AGE: 83 years CLINICAL HISTORY: 83-year-old male with heart disease (atrial fibrillation) and cough. INTERPRETATION: 1. Cardiac pacemaker (2 leads) unchanged since comparison exam 29 June 2018. External director cardiac leads. Sternotomy wires. 2. Prominent cardiac silhouette but no increase in size or change in configuration and no new pulmonary vascular congestion, cephalization of flow, alveolar edema or dependent pleural fluid accumulation. 3. No new lung mass, hilar lymphadenopathy or focal lobar pneumonia. 4. No atelectasis/collapse. No pneumothorax. CONCLUSION: No acute new cardiopulmonary abnormality since comparison exam 29 June 2018.
[2019-09-12 13:57] VITALS: BP 145/66; PULSE 101
== END 2019-09-12 14:27 | disposition home or self-care (01) ==
LOC: DL.ED 12:06
DX: I48.91 Unspecified atrial fibrillation (principal); I25.10 Atherosclerotic heart disease of native coronary artery without angina pectoris; E78.00 Pure hypercholesterolemia, unspecified; I10 Essential (primary) hypertension; K21.9 Gastro-esophageal reflux disease without esophagitis; I12.9 Hypertensive chronic kidney disease with stage 1 through stage 4 chronic kidney disease, or unspecified chronic kidney disease; E11.22 Type 2 diabetes mellitus with diabetic chronic kidney disease; N18.9 Chronic kidney disease, unspecified; Z79.01 Long term (current) use of anticoagulants; Z79.02 Long term (current) use of antithrombotics/antiplatelets; Z79.84 Long term (current) use of oral hypoglycemic drugs; Z86.73 Personal history of transient ischemic attack (TIA), and cerebral infarction without residual deficits; Z91.041 Radiographic dye allergy status; Z79.899 Other long term (current) drug therapy
CPT/HCPCS: 36415; 71045; 80053; 80162; 83605; 83880; 84484; 85025; 87040; 87804; 93005; 99285; A9270

== ENCOUNTER 2019-09-18 07:59 | Emergency (ER) | payer MEDICARE, BC ==
--- NOTE | 2019-09-18 08:37 | EDM.PDOC ---
ED HPI GENERAL MEDICAL PROBLEM - General Chief Complaint: Genitourinary Problem Stated Complaint: CANT PEE Time Seen by Provider: 09/18/19 08:20 Source of Information: Reports: Patient, Old Records, RN, RN Notes Reviewed History Limitations: Reports: No Limitations - History of Present Illness INITIAL COMMENTS - FREE TEXT/NARRATIVE: Pt presents to ER from home with c/o being unable to urinate. Pt states he has prostate problems and take Finasteride and Flomax. He began having a weak urine stream last evening and through the night could only dribble. Since 0500HRS he feels his bladder is over-full and cannot pass any urine. He denies flank pain, fever, chills, hematuria, or recent dysuria. 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(s) Abdomen Pain Score (Numeric/FACES): 3 - Related Data Allergies Allergy/AdvReac Type Severity Reaction Status Date / Time Iodinated Contrast Media Allergy Cannot Verified 09/18/19 08:17 [Iodinated Contrast Media - Remember IV Dye] niacin Allergy Cannot Verified 09/18/19 08:17 Remember Home Meds: Home Meds Metoprolol Succinate [Toprol XL] 150 mg PO DAILY 12/29/14 [History] metFORMIN [Glucophage] 500 mg PO BID 12/29/14 [History] Finasteride [Proscar] 5 mg PO DAILY 03/16/16 [History] Tamsulosin [Flomax] 0.4 mg PO DAILY 03/16/16 [History] Furosemide [Lasix] 40 mg PO DAILY 04/27/18 [History] Nitroglycerin [Nitrostat] 0.4 mg SL ASDIRECTED PRN 04/27/18 [History] Umeclidinium Brm/Vilanterol Tr [Anoro Ellipta 62.5-25 MCG] 1 puff IH DAILY 04/27 [History] atorvaSTATin [Lipitor] 40 mg PO DAILY 04/27/18 [History] Apixaban [Eliquis] 2.5 mg PO BID 07/04/18 [History] Digoxin 125 mcg PO DAILY 07/04/18 [History] ramipriL [Ramipril] 2.5 mg PO DAILY 07/04/18 [History] Clopidogrel [Plavix] 75 mg PO DAILY 07/27/18 [History] Apixaban [Eliquis] 2.5 mg PO BID 09/12/19 [History] Finasteride 5 mg PO DAILY 09/12/19 [History] Omeprazole 20 mg PO DAILY 09/12/19 [History] Past Medical History HEENT History: Reports: Cataract, Impaired Vision Cardiovascular History: Reports: Afib, CAD, High Cholesterol, Hypertension, Pacemaker Respiratory History: Reports: SOB Gastrointestinal History: Reports: GERD Genitourinary History: Reports: Chronic Renal Insuffiency, Prostate Disorder, Retention, Urinary, Other (See Below) Other Genitourinary History: bladder spasms Musculoskeletal History: Reports: Fracture, Osteoarthritis Neurological History: Reports: TIA Psychiatric History: Reports: None Endocrine/Metabolic History: Reports: Diabetes, Type II Hematologic History: Reports: None Immunologic History: Reports: None Oncologic (Cancer) History: Reports: None Dermatologic History: Reports: Other (See Below) Other Dermatologic History: actinic keratosis - Infectious Disease History Infectious Disease History: Reports: Chicken Pox, Measles, Mumps, Shingles - Past Surgical History HEENT Surgical History: Reports: Adenoidectomy, Cataract Surgery, Tonsillectomy Cardiovascular Surgical History: Reports: Coronary Artery Bypass GI Surgical History: Reports: None Male Surgical History: Reports: Other (See Below) Other Male Surgeries/Procedures: cystourethroscopy, nephrolithiasis Endocrine Surgical History: Reports: None Neurological Surgical History: Reports: None Musculoskeletal Surgical History: Reports: None Dermatological Surgical History: Reports: None Social & Family History - Family History Family Medical History: Noncontributory - Caffeine Use Caffeine Use: Reports: Coffee, Soda Caffeine Use Comment: Drinks lots of coffee - Living Situation & Occupation Occupation: Retired ED ROS GENERAL - Review of Systems Review Of Systems: Comprehensive ROS is negative, except as noted in HPI. ED EXAM, RENAL/ - Physical Exam Exam: See Below Exam Limited By: No Limitations General Appearance: Alert, WD/WN, No Apparent Distress Respiratory/Chest: No Respiratory Distress, Lungs Clear Cardiovascular: Tachycardia, Irregularly Irregular GI/Abdominal: Normal Bowel Sounds, Soft, No Distention, Tender (Mild suprapubic tenderness with bladder palpable 3cm below the umbilicus.). No: Guarding, Rigid , Rebound (Male) Exam: Normal Inspection Rectal (Males) Exam: Deferred Back Exam: Normal Inspection. No: CVA Tenderness (L), CVA Tenderness (R) Neurological: Alert, Oriented, No Motor/Sensory Deficits Psychiatric: Normal Mood Skin Exam: Warm, Dry, Intact, Normal Color Course - Vital Signs Last Recorded V/S: Last Vital Signs Temp 97.6 F 09/18/19 08:11 Pulse 127 H 09/18/19 08:11 Resp 18 09/18/19 08:11 BP 182/127 H 09/18/19 08:11 Pulse Ox 94 L 09/18/19 08:11 - Orders/Labs/Meds Orders: Active Orders 24 hr Category Date Time Status Insert May Catheter [Insert Urinary Catheter] [OM.PC] Care 09/18/19 08:25 Ordered Stat Urinary Catheter Assessment [RC] ASDIRECTED Care 09/18/19 08:26 Active CULTURE URINE [RM] Stat Lab 09/18/19 08:37 Received Labs: Laboratory Tests 09/18/19 Range/Units 08:37 Urine Color Yellow (YELLOW) Urine Appearance Cloudy (CLEAR) Urine pH 6.0 (5.0-9.0) Ur Specific [place] 1.015 (1.005-1.030) Urine Protein Negative (NEGATIVE) Urine Glucose (UA) Negative (NEGATIVE) Urine Ketones Negative (NEGATIVE) Urine Occult Blood Moderate H (NEGATIVE) Urine Nitrite Negative (NEGATIVE) Urine Bilirubin Negative (NEGATIVE) Urine Urobilinogen 1.0 (0.2-1.0) mg/dL Ur Leukocyte Esterase Moderate H (NEGATIVE) Urine RBC 20-30 H /HPF Urine WBC 40-50 H (0-5/HPF) /HPF Ur Epithelial Cells Rare (NOT SEEN) /HPF Urine Bacteria Many H (0-FEW/HPF) /HPF Departure - Departure Time of Disposition: 09:00 Disposition: Home, Self-Care 01 Condition: Good Clinical Impression: Acute urinary retention UTI (urinary tract infection) Qualifiers: Urinary tract infection type: acute cystitis Hematuria presence: without hematuria Qualified Code(s): N30.00 - Acute cystitis without hematuria - Discharge Information *PRESCRIPTION DRUG MONITORING PROGRAM REVIEWED*: Not Applicable *COPY OF PRESCRIPTION DRUG MONITORING REPORT IN PATIENT SUZY: Not Applicable Instructions: Indwelling Urinary Catheter Care, Adult, Acute Urinary Retention , Male Forms: ED Department Discharge Additional Instructions: Rx: Cipro 500mg Continue your current medications as prescribed. May catheter self care as instructed by the nurse. Follow up in clinic tomorrow, Monday09/19/19, or Monday09/23/19 for recheck and catheter removal. Sepsis Event Note - Evaluation Sepsis Screening Result: No Definite Risk - Focused Exam Vital Signs: Vital Signs Temp Pulse Resp BP Pulse Ox 09/18/19 08:11 97.6 F 127 H 18 182/127 H 94 L Date Exam was Performed: 09/18/19 Time Exam was Performed: 09:05 - My Orders Last 24 Hours: My Active Orders 09/18/19 08:25 Insert May Catheter [Insert Urinary Catheter] [OM.PC] Stat 09/18/19 08:26 Urinary Catheter Assessment [RC] ASDIRECTED 09/18/19 08:37 CULTURE URINE [RM] Stat - Assessment/Plan Last 24 Hours: My Active Orders 09/18/19 08:25 Insert May Catheter [Insert Urinary Catheter] [OM.PC] Stat 09/18/19 08:26 Urinary Catheter Assessment [RC] ASDIRECTED 09/18/19 08:37 CULTURE URINE [RM] Stat
[2019-09-18 09:58] VITALS: BP 160/86; PULSE 90
== END 2019-09-18 09:55 | disposition home or self-care (01) ==
LOC: DL.ED 07:59
DX: N30.00 Acute cystitis without hematuria (principal); R33.9 Retention of urine, unspecified; K21.9 Gastro-esophageal reflux disease without esophagitis; I48.91 Unspecified atrial fibrillation; I25.10 Atherosclerotic heart disease of native coronary artery without angina pectoris; E78.00 Pure hypercholesterolemia, unspecified; I12.9 Hypertensive chronic kidney disease with stage 1 through stage 4 chronic kidney disease, or unspecified chronic kidney disease; N18.9 Chronic kidney disease, unspecified; E11.9 Type 2 diabetes mellitus without complications; Z79.4 Long term (current) use of insulin; Z91.041 Radiographic dye allergy status; Z88.8 Allergy status to other drugs, medicaments and biological substances; Z79.899 Other long term (current) drug therapy; Z79.01 Long term (current) use of anticoagulants; Z79.02 Long term (current) use of antithrombotics/antiplatelets; Z86.73 Personal history of transient ischemic attack (TIA), and cerebral infarction without residual deficits
CPT/HCPCS: 51702; 81001; 87086; 99283

== ENCOUNTER 2019-09-22 15:37 | Emergency (ER) | payer MEDICARE, BC ==
[2019-09-22 15:48] VITALS: BP 155/78; PULSE 100
--- NOTE | 2019-09-22 16:13 | EDM.PDOC ---
Scribed by Lakeisha Stockton 09/22/19 1613 for Silvestre Jewell PA ED HPI GENERAL MEDICAL PROBLEM - General Chief Complaint: Genitourinary Problem Stated Complaint: BLEEDING BAD Time Seen by Provider: 09/22/19 15:57 Source of Information: Reports: Patient, RN, RN Notes Reviewed History Limitations: Reports: No Limitations - History of Present Illness INITIAL COMMENTS - FREE TEXT/NARRATIVE: This 83 yo male patient reports to the ED due to a large amount of blood coming through his catheter. The patient was seen in the ED 4 days ago due to the inability to urinate. During that visit, the patient had a catheter placed. The patient reports he had been doing fine until about noon today when he noticed the blood in his catheter. The patient is scheduled to have the catheter removed tomorrow at the [facility]. The patient reports he has seen a urologist in the past for hematuria, but has been released from his care due to the patient not having any additional symptoms or further concerns. Onset: Today Onset Date: 09/22/19 Onset Time: 12:00 Duration: Constant Location: Reports: Other Quality: Reports: Other Severity: Moderate Improves with: Reports: None Worsens with: Reports: None Context: Reports: Other - Related Data Allergies Allergy/AdvReac Type Severity Reaction Status Date / Time Iodinated Contrast Media Allergy Cannot Verified 09/22/19 15:45 [Iodinated Contrast Media - Remember IV Dye] niacin Allergy Cannot Verified 09/22/19 15:45 Remember Home Meds: Home Meds Metoprolol Succinate [Toprol XL] 150 mg PO DAILY 12/29/14 [History] metFORMIN [Glucophage] 500 mg PO BID 12/29/14 [History] Finasteride [Proscar] 5 mg PO DAILY 03/16/16 [History] Tamsulosin [Flomax] 0.4 mg PO DAILY 03/16/16 [History] Furosemide [Lasix] 40 mg PO DAILY 04/27/18 [History] Nitroglycerin [Nitrostat] 0.4 mg SL ASDIRECTED PRN 04/27/18 [History] Umeclidinium Brm/Vilanterol Tr [Anoro Ellipta 62.5-25 MCG] 1 puff IH DAILY 04/27 [History] atorvaSTATin [Lipitor] 40 mg PO DAILY 04/27/18 [History] Apixaban [Eliquis] 2.5 mg PO BID 07/04/18 [History] Digoxin 125 mcg PO DAILY 07/04/18 [History] ramipriL [Ramipril] 2.5 mg PO DAILY 07/04/18 [History] Clopidogrel [Plavix] 75 mg PO DAILY 07/27/18 [History] Apixaban [Eliquis] 2.5 mg PO BID 09/12/19 [History] Finasteride 5 mg PO DAILY 09/12/19 [History] Omeprazole 20 mg PO DAILY 09/12/19 [History] Past Medical History HEENT History: Reports: Cataract, Impaired Vision Cardiovascular History: Reports: Afib, CAD, High Cholesterol, Hypertension, Pacemaker Respiratory History: Reports: SOB Gastrointestinal History: Reports: GERD Genitourinary History: Reports: Chronic Renal Insuffiency, Prostate Disorder, Retention, Urinary, Other (See Below) Other Genitourinary History: bladder spasms Musculoskeletal History: Reports: Fracture, Osteoarthritis Neurological History: Reports: TIA Psychiatric History: Reports: None Endocrine/Metabolic History: Reports: Diabetes, Type II Hematologic History: Reports: None Immunologic History: Reports: None Oncologic (Cancer) History: Reports: None Dermatologic History: Reports: Other (See Below) Other Dermatologic History: actinic keratosis - Infectious Disease History Infectious Disease History: Reports: Chicken Pox, Measles, Mumps, Shingles - Past Surgical History HEENT Surgical History: Reports: Adenoidectomy, Cataract Surgery, Tonsillectomy Cardiovascular Surgical History: Reports: Coronary Artery Bypass GI Surgical History: Reports: None Male Surgical History: Reports: Other (See Below) Other Male Surgeries/Procedures: cystourethroscopy, nephrolithiasis Endocrine Surgical History: Reports: None Neurological Surgical History: Reports: None Musculoskeletal Surgical History: Reports: None Dermatological Surgical History: Reports: None Social & Family History - Family History Family Medical History: Noncontributory - Tobacco Use Smoking Status *Q: Never Smoker Second Hand Smoke Exposure: No - Caffeine Use Caffeine Use: Reports: Coffee Caffeine Use Comment: Drinks lots of coffee - Recreational Drug Use Recreational Drug Use: No - Living Situation & Occupation Occupation: Retired ED ROS GENERAL - Review of Systems Review Of Systems: Comprehensive ROS is negative, except as noted in HPI. ED EXAM, RENAL/ - Physical Exam Exam: See Below Exam Limited By: No Limitations General Appearance: Alert, WD/WN, Mild Distress Eye Exam: Bilateral Eye: EOMI, Normal Inspection, PERRL Ears: Normal External Exam, Normal Canal, Hearing Grossly Normal, Normal TMs Nose: Normal Inspection, Normal Mucosa, No Blood Throat/Mouth: Normal Inspection, Normal Lips, Normal Teeth, Normal Gums, Normal Oropharynx, Normal Voice, No Airway Compromise Head: Atraumatic, Normocephalic Neck: Normal Inspection, Supple, Non-Tender, Full Range of Motion Respiratory/Chest: No Respiratory Distress, Lungs Clear, Normal Breath Sounds, No Accessory Muscle Use, Chest Non-Tender Cardiovascular: Normal Peripheral Pulses, Regular Rate, Rhythm, No Edema, No Gallop, No JVD, No Murmur, No Rub GI/Abdominal: Normal Bowel Sounds, Soft, Non-Tender, No Organomegaly, No Distention, No Abnormal Bruit, No Mass (Male) Exam: Deferred Rectal (Males) Exam: Deferred Back Exam: Normal Inspection, Full Range of Motion, NT Extremities: Normal Inspection, Normal Range of Motion, Non-Tender, Normal Capillary Refill, No Pedal Edema Neurological: Alert, Oriented, CN II-XII Intact, Normal Cognition, Normal Gait, Normal Reflexes, No Motor/Sensory Deficits Psychiatric: Normal Affect, Normal Mood Skin Exam: Warm, Dry, Intact, Normal Color, No Rash Lymphatic: No Adenopathy Course - Vital Signs Last Recorded V/S: Last Vital Signs Temp 35.7 C L 09/22/19 15:45 Pulse 100 09/22/19 15:45 Resp 18 09/22/19 15:45 BP 155/78 H 09/22/19 15:45 Pulse Ox 96 09/22/19 15:45 - Orders/Labs/Meds Labs: Laboratory Tests 09/22/19 09/22/19 09/22/19 Range/Units 16:11 16:11 16:18 WBC 8.2 (5.0-10.0) 10^3/uL RBC 4.70 (4.6-6.2) 10^6/uL Hgb 12.2 L (14.0-18.0) g/dL Hct 38.6 L (40.0-54.0) % MCV 82.1 (80-100) fL MCH 26.0 L (27.0-34.0) pg MCHC 31.6 L (33.0-35.0) g/dL Plt Count 198 (150-450) 10^3/uL Neut % (Auto) 80.4 H (42.2-75.2) % Lymph % (Auto) 8.0 L (20.5-50.1) % Alfalfa % (Auto) 9.4 H (2-8) % Eos % (Auto) 1.8 (1.0-3.0) % Baso % (Auto) 0.4 (0.0-1.0) % Sodium 141 (136-145) mmol/L Potassium 3.8 (3.5-5.1) mmol/L Chloride 103 (98-107) mmol/L Carbon Dioxide 28 (21-32) mmol/L Anion Gap 13.8 H (7-13) mEq/L BUN 12 (7-18) mg/dL Creatinine 1.01 (0.70-1.30) mg/dL Est Cr Clr Drug Dosing 59.73 mL/min Estimated GFR (MDRD) > 60 BUN/Creatinine Ratio 11.9 (No establ ref range) Glucose 131 H (74-99) mg/dL Calcium 8.4 L (8.5-10.1) mg/dL Total Bilirubin 1.0 (0.2-1.0) mg/dL AST 11 L (15-37) U/L ALT 15 L (16-63) U/L Alkaline Phosphatase 460 H (46-116) U/L Total Protein 6.8 (6.4-8.2) g/dL Albumin 3.5 (3.4-5.0) g/dL Globulin 3.3 Albumin/Globulin Ratio 1.1 Urine Color Red (YELLOW) Urine Appearance Turbid (CLEAR) Urine pH 6.0 (5.0-9.0) Ur Specific [place] >= 1.030 (1.005-1.030) Urine Protein >=300 H (NEGATIVE) Urine Glucose (UA) Negative (NEGATIVE) Urine Ketones Negative (NEGATIVE) Urine Occult Blood Large H (NEGATIVE) Urine Nitrite Negative (NEGATIVE) Urine Bilirubin Small H (NEGATIVE) Urine Urobilinogen 1.0 (0.2-1.0) mg/dL Ur Leukocyte Esterase Negative (NEGATIVE) Urine RBC Packed H /HPF Urine WBC 0-5 (0-5/HPF) /HPF Ur Epithelial Cells Not seen (NOT SEEN) /HPF Urine Bacteria Few (0-FEW/HPF) /HPF Departure - Departure Time of Disposition: 18:52 Disposition: Home, Self-Care 01 Condition: Fair Clinical Impression: Hematuria Qualifiers: Hematuria type: gross Qualified Code(s): R31.0 - Gross hematuria - Discharge Information *PRESCRIPTION DRUG MONITORING PROGRAM REVIEWED*: Not Applicable *COPY OF PRESCRIPTION DRUG MONITORING REPORT IN PATIENT SUZY: Not Applicable Forms: ED Department Discharge Care Plan Goals: The patient and family were advised of the examination, lab and CT results during the visit. Dr. Sharp (Urology) was consulted during the visit. The patient was advised to go to the [facility] in the morning to have a PSA checked. Dr. Sharp's nursing staff will be contacting the patient tomorrow morning to schedule a follow-up appointment with his office in the next 2 days. If the patient has any additional symptoms or concerns, the patient should either return to the emergency department or visit his primary care facility. Sepsis Event Note - Evaluation Sepsis Screening Result: No Definite Risk - Focused Exam Vital Signs: Vital Signs Temp Pulse Resp BP Pulse Ox 09/22/19 15:45 35.7 C L 100 18 155/78 H 96 Date Exam was Performed: 09/22/19 Time Exam was Performed: 18:52 I have read and agree with the documentation that has been completed regarding this visit. By signing this record, I attest that the documentation was completed in my physical presence and is an accurate record of the encounter.
[2019-09-22 16:55] LABS: ANION GAP 13.8 mEq/L (7-13); CHLORIDE,CL 103 mmol/L (98-107); SODIUM,NA 141 mmol/L (136-145)
== END 2019-09-22 19:01 | disposition home or self-care (01) ==
LOC: DL.ED 15:37
DX: R31.0 Gross hematuria (principal); I12.9 Hypertensive chronic kidney disease with stage 1 through stage 4 chronic kidney disease, or unspecified chronic kidney disease; E11.22 Type 2 diabetes mellitus with diabetic chronic kidney disease; N18.9 Chronic kidney disease, unspecified; I25.10 Atherosclerotic heart disease of native coronary artery without angina pectoris; I48.91 Unspecified atrial fibrillation; E78.00 Pure hypercholesterolemia, unspecified; K21.9 Gastro-esophageal reflux disease without esophagitis; M19.90 Unspecified osteoarthritis, unspecified site; Z86.73 Personal history of transient ischemic attack (TIA), and cerebral infarction without residual deficits; Z90.49 Acquired absence of other specified parts of digestive tract; Z95.1 Presence of aortocoronary bypass graft; Z79.01 Long term (current) use of anticoagulants; Z79.02 Long term (current) use of antithrombotics/antiplatelets; Z79.84 Long term (current) use of oral hypoglycemic drugs; Z91.041 Radiographic dye allergy status; Z88.8 Allergy status to other drugs, medicaments and biological substances
CPT/HCPCS: 36415; 74176; 80053; 81001; 85025; 99283; 99284-25

== ENCOUNTER 2019-10-27 03:51 | Emergency (ER) | payer MEDICARE, BC ==
[2019-10-27 03:57] VITALS: PULSE 99
[2019-10-27 04:07] VITALS: BP 114/50
--- NOTE | 2019-10-27 04:11 | EDM.PDOC ---
ED HPI GENERAL MEDICAL PROBLEM - General Chief Complaint: Genitourinary Problem Stated Complaint: CATHETER BAG BROKE? Time Seen by Provider: 10/27/19 04:06 Source of Information: Reports: Patient History Limitations: Reports: No Limitations - History of Present Illness INITIAL COMMENTS - FREE TEXT/NARRATIVE: broken May bag. - Related Data Allergies Allergy/AdvReac Type Severity Reaction Status Date / Time Iodinated Contrast Media Allergy Cannot Verified 10/27/19 03:58 [Iodinated Contrast Media - Remember IV Dye] niacin Allergy Cannot Verified 10/27/19 03:58 Remember Home Meds: Home Meds Metoprolol Succinate [Toprol XL] 150 mg PO DAILY 12/29/14 [History] metFORMIN [Glucophage] 500 mg PO BID 12/29/14 [History] Finasteride [Proscar] 5 mg PO DAILY 03/16/16 [History] Tamsulosin [Flomax] 0.4 mg PO DAILY 03/16/16 [History] Furosemide [Lasix] 40 mg PO DAILY 04/27/18 [History] Nitroglycerin [Nitrostat] 0.4 mg SL ASDIRECTED PRN 04/27/18 [History] Umeclidinium Brm/Vilanterol Tr [Anoro Ellipta 62.5-25 MCG] 1 puff IH DAILY 04/27 [History] atorvaSTATin [Lipitor] 40 mg PO DAILY 04/27/18 [History] Apixaban [Eliquis] 2.5 mg PO BID 07/04/18 [History] Digoxin 125 mcg PO DAILY 07/04/18 [History] ramipriL [Ramipril] 2.5 mg PO DAILY 07/04/18 [History] Clopidogrel [Plavix] 75 mg PO DAILY 07/27/18 [History] Apixaban [Eliquis] 2.5 mg PO BID 09/12/19 [History] Finasteride 5 mg PO DAILY 09/12/19 [History] Omeprazole 20 mg PO DAILY 09/12/19 [History] Past Medical History HEENT History: Reports: Cataract, Impaired Vision Cardiovascular History: Reports: Afib, CAD, High Cholesterol, Hypertension, Pacemaker Respiratory History: Reports: SOB Gastrointestinal History: Reports: GERD Genitourinary History: Reports: Chronic Renal Insuffiency, Prostate Disorder, Retention, Urinary, Other (See Below) Other Genitourinary History: bladder spasms Musculoskeletal History: Reports: Fracture, Osteoarthritis Neurological History: Reports: TIA Psychiatric History: Reports: None Endocrine/Metabolic History: Reports: Diabetes, Type II Hematologic History: Reports: None Immunologic History: Reports: None Oncologic (Cancer) History: Reports: None Dermatologic History: Reports: Other (See Below) Other Dermatologic History: actinic keratosis - Infectious Disease History Infectious Disease History: Reports: Chicken Pox, Measles, Mumps, Shingles - Past Surgical History HEENT Surgical History: Reports: Adenoidectomy, Cataract Surgery, Tonsillectomy Cardiovascular Surgical History: Reports: Coronary Artery Bypass GI Surgical History: Reports: None Male Surgical History: Reports: Other (See Below) Other Male Surgeries/Procedures: cystourethroscopy, nephrolithiasis Endocrine Surgical History: Reports: None Neurological Surgical History: Reports: None Musculoskeletal Surgical History: Reports: None Dermatological Surgical History: Reports: None Social & Family History - Family History Family Medical History: Noncontributory - Tobacco Use Smoking Status *Q: Unknown Ever Smoked Second Hand Smoke Exposure: No - Caffeine Use Caffeine Use: Reports: Coffee Caffeine Use Comment: Drinks lots of coffee - Recreational Drug Use Recreational Drug Use: No - Living Situation & Occupation Occupation: Retired ED ROS GENERAL - Review of Systems Review Of Systems: Comprehensive ROS is negative, except as noted in HPI. ED EXAM, RENAL/ - Physical Exam Exam: See Below Exam Limited By: No Limitations General Appearance: Alert, WD/WN, Mild Distress, Other (upset) Ears: Hearing Grossly Normal Throat/Mouth: Normal Voice, No Airway Compromise Head: Atraumatic Neck: Non-Tender, Full Range of Motion Respiratory/Chest: No Respiratory Distress Cardiovascular: Regular Rate, Rhythm GI/Abdominal: Soft, Non-Tender (Male) Exam: Other (May draining well, bag broke) Neurological: Alert, Oriented, Normal Cognition, Normal Gait, No Motor/Sensory Deficits Psychiatric: Normal Affect, Normal Mood Skin Exam: Warm, Dry, Normal Color Lymphatic: No Adenopathy Course - Vital Signs Last Recorded V/S: Last Vital Signs Temp 36.1 C 10/27/19 03:56 Pulse 99 10/27/19 03:56 Resp 20 10/27/19 03:56 BP 114/50 L 10/27/19 04:07 Pulse Ox 99 10/27/19 03:56 Departure - Departure Time of Disposition: 04:10 Disposition: Home, Self-Care 01 Condition: Good Clinical Impression: May catheter problem Qualifiers: Encounter type: initial encounter Qualified Code(s): T83.9XXA - Unspecified complication of genitourinary prosthetic device, implant and graft, initial encounter - Discharge Information Forms: ED Department Discharge Additional Instructions: 1) continue with routine May care 2) recheck as needed Sepsis Event Note - Evaluation Sepsis Screening Result: No Definite Risk - Focused Exam Vital Signs: Vital Signs Temp Pulse Resp BP Pulse Ox 10/27/19 04:07 114/50 L 10/27/19 03:56 36.1 C 99 20 140/118 H 99 Date Exam was Performed: 10/27/19 Time Exam was Performed: 04:09
== END 2019-10-27 04:17 | disposition home or self-care (01) ==
LOC: DL.ED 03:51
DX: T83.9XXA Unspecified complication of genitourinary prosthetic device, implant and graft, initial encounter (principal); I12.9 Hypertensive chronic kidney disease with stage 1 through stage 4 chronic kidney disease, or unspecified chronic kidney disease; E11.22 Type 2 diabetes mellitus with diabetic chronic kidney disease; N18.9 Chronic kidney disease, unspecified; I48.91 Unspecified atrial fibrillation; E78.00 Pure hypercholesterolemia, unspecified; I25.10 Atherosclerotic heart disease of native coronary artery without angina pectoris; K21.9 Gastro-esophageal reflux disease without esophagitis; M19.90 Unspecified osteoarthritis, unspecified site; Z86.73 Personal history of transient ischemic attack (TIA), and cerebral infarction without residual deficits; Z91.041 Radiographic dye allergy status; Z88.8 Allergy status to other drugs, medicaments and biological substances; Z79.01 Long term (current) use of anticoagulants; Z79.02 Long term (current) use of antithrombotics/antiplatelets; Z79.84 Long term (current) use of oral hypoglycemic drugs; Z79.899 Other long term (current) drug therapy; Z53.21 Procedure and treatment not carried out due to patient leaving prior to being seen by health care provider
CPT/HCPCS: 99282; 99283

== ENCOUNTER 2019-10-27 11:04 | Emergency (ER) | payer MEDICARE, BC | END 2019-10-27 11:21 | disposition home or self-care (01) | LOC: DL.ED 11:04 | DX: Z53.21 Procedure and treatment not carried out due to patient leaving prior to being seen by health care provider (principal) ==

== ENCOUNTER 2019-12-13 02:40 | Emergency (ER) | payer MEDICARE, BC ==
--- NOTE | 2019-12-13 03:05 | EDM.PDOC ---
ED HPI GENERAL MEDICAL PROBLEM - General Chief Complaint: Chest Pain Stated Complaint: MIDDLE CHEST PAIN Time Seen by Provider: 12/13/19 03:04 Source of Information: Reports: Patient History Limitations: Reports: No Limitations - History of Present Illness INITIAL COMMENTS - FREE TEXT/NARRATIVE: woke up with mid sternal chest pain but now gone. being Tx for prostate CA. h/o A fib. - Related Data Allergies Allergy/AdvReac Type Severity Reaction Status Date / Time Iodinated Contrast Media Allergy Cannot Verified 10/27/19 03:58 [Iodinated Contrast Media - Remember IV Dye] niacin Allergy Cannot Verified 10/27/19 03:58 Remember Home Meds: Home Meds Metoprolol Succinate [Toprol XL] 150 mg PO DAILY 12/29/14 [History] metFORMIN [Glucophage] 500 mg PO BID 12/29/14 [History] Finasteride [Proscar] 5 mg PO DAILY 03/16/16 [History] Tamsulosin [Flomax] 0.4 mg PO DAILY 03/16/16 [History] Furosemide [Lasix] 40 mg PO DAILY 04/27/18 [History] Nitroglycerin [Nitrostat] 0.4 mg SL ASDIRECTED PRN 04/27/18 [History] Umeclidinium Brm/Vilanterol Tr [Anoro Ellipta 62.5-25 MCG] 1 puff IH DAILY 04/27 [History] atorvaSTATin [Lipitor] 40 mg PO DAILY 04/27/18 [History] Apixaban [Eliquis] 2.5 mg PO BID 07/04/18 [History] Digoxin 125 mcg PO DAILY 07/04/18 [History] ramipriL [Ramipril] 2.5 mg PO DAILY 07/04/18 [History] Clopidogrel [Plavix] 75 mg PO DAILY 07/27/18 [History] Apixaban [Eliquis] 2.5 mg PO BID 09/12/19 [History] Finasteride 5 mg PO DAILY 09/12/19 [History] Omeprazole 20 mg PO DAILY 09/12/19 [History] Past Medical History HEENT History: Reports: Cataract, Impaired Vision Cardiovascular History: Reports: Afib, CAD, High Cholesterol, Hypertension, Pacemaker Respiratory History: Reports: SOB Gastrointestinal History: Reports: GERD Genitourinary History: Reports: Chronic Renal Insuffiency, Prostate Disorder, Retention, Urinary, Other (See Below) Other Genitourinary History: bladder spasms Musculoskeletal History: Reports: Fracture, Osteoarthritis Neurological History: Reports: TIA Psychiatric History: Reports: None Endocrine/Metabolic History: Reports: Diabetes, Type II Hematologic History: Reports: None Immunologic History: Reports: None Oncologic (Cancer) History: Reports: Prostate Dermatologic History: Reports: Other (See Below) Other Dermatologic History: actinic keratosis - Infectious Disease History Infectious Disease History: Reports: Chicken Pox, Measles, Mumps, Shingles - Past Surgical History HEENT Surgical History: Reports: Adenoidectomy, Cataract Surgery, Tonsillectomy Cardiovascular Surgical History: Reports: Coronary Artery Bypass GI Surgical History: Reports: None Male Surgical History: Reports: Other (See Below) Other Male Surgeries/Procedures: cystourethroscopy, nephrolithiasis Endocrine Surgical History: Reports: None Neurological Surgical History: Reports: None Musculoskeletal Surgical History: Reports: None Dermatological Surgical History: Reports: None Social & Family History - Family History Family Medical History: Noncontributory - Tobacco Use Smoking Status *Q: Former Smoker Used Tobacco, but Quit: Yes Month/Year Tobacco Last Used: quit 30 yrs ago Second Hand Smoke Exposure: No - Caffeine Use Caffeine Use: Reports: Coffee Caffeine Use Comment: Drinks lots of coffee - Recreational Drug Use Recreational Drug Use: No - Living Situation & Occupation Occupation: Retired ED ROS GENERAL - Review of Systems Review Of Systems: Comprehensive ROS is negative, except as noted in HPI. ED EXAM, GENERAL - Physical Exam Exam: See Below Exam Limited By: No Limitations General Appearance: Alert, WD/WN, No Apparent Distress Ears: Hearing Grossly Normal Throat/Mouth: Normal Voice, No Airway Compromise Head: Atraumatic Neck: Non-Tender, Full Range of Motion Respiratory/Chest: No Respiratory Distress Cardiovascular: Irregularly Irregular GI/Abdominal: Soft, Non-Tender Extremities: Pedal Edema, Other (1+) Neurological: Alert, Oriented, Normal Cognition, Normal Gait, No Motor/Sensory Deficits Psychiatric: Normal Affect, Normal Mood Skin Exam: Warm, Dry, Normal Color Lymphatic: No Adenopathy Course - Vital Signs Last Recorded V/S: Last Vital Signs Temp 36.2 C 12/13/19 02:43 Pulse 110 H 12/13/19 02:43 Resp 18 12/13/19 02:43 BP 151/91 H 12/13/19 02:43 Pulse Ox 100 12/13/19 02:43 - Orders/Labs/Meds Orders: Active Orders 24 hr Category Date Time Status EKG 12 Lead [EKG Documentation Completion] [RC] STAT Care 12/13/19 02:56 Active Chest 1V Frontal [CR] Urgent Exams 12/13/19 03:03 Ordered Labs: Laboratory Tests 12/13/19 12/13/19 Range/Units 03:01 03:01 WBC 7.9 (5.0-10.0) 10^3/uL RBC 4.97 (4.6-6.2) 10^6/uL Hgb 13.0 L (14.0-18.0) g/dL Hct 39.7 L (40.0-54.0) % MCV 79.9 L (80-100) fL MCH 26.2 L (27.0-34.0) pg MCHC 32.7 L (33.0-35.0) g/dL Plt Count 182 (150-450) 10^3/uL Neut % (Auto) 68.2 (42.2-75.2) % Lymph % (Auto) 19.7 L (20.5-50.1) % [place] % (Auto) 10.1 H (2-8) % Eos % (Auto) 1.5 (1.0-3.0) % Baso % (Auto) 0.5 (0.0-1.0) % Sodium 138 (136-145) mmol/L Potassium 4.4 (3.5-5.1) mmol/L Chloride 102 (98-107) mmol/L Carbon Dioxide 27 (21-32) mmol/L Anion Gap 13.4 H (7-13) mEq/L BUN 23 H (7-18) mg/dL Creatinine 1.04 (0.70-1.30) mg/dL Est Cr Clr Drug Dosing TNP Estimated GFR (MDRD) > 60 BUN/Creatinine Ratio 22.1 (No establ ref range) Glucose 162 H (74-99) mg/dL Calcium 8.6 (8.5-10.1) mg/dL Total Bilirubin 0.5 (0.2-1.0) mg/dL AST 12 L (15-37) U/L ALT 22 (16-63) U/L Alkaline Phosphatase 273 H (46-116) U/L Troponin I < 0.017 (0.000-0.056) ng/mL B-Natriuretic Peptide 120 H (0-100) pg/ml Total Protein 7.1 (6.4-8.2) g/dL Albumin 3.5 (3.4-5.0) g/dL Globulin 3.6 Albumin/Globulin Ratio 1.0 Amylase 76 (25-115) U/L Lipase 111 (73-393) U/L - Re-Assessments/Exams Free Text/Narrative Re-Assessment/Exam: 12/13/19 03:53 re-exam; pt states feels good and pain is gone and wants to go home where he sleeps better. denies SOB and is breathing fine. Departure - Departure Time of Disposition: 03:55 Disposition: Home, Self-Care 01 Condition: Good Clinical Impression: Atypical chest pain, Mild acid reflux Instructions: Nonspecific Chest Pain, Adult Forms: ED Department Discharge Additional Instructions: 1) try not to sleep flat at night 2) recheck if there is any change or concern Sepsis Event Note - Evaluation Sepsis Screening Result: No Definite Risk - Focused Exam Vital Signs: Vital Signs Temp Pulse Resp BP Pulse Ox 12/13/19 02:43 36.2 C 110 H 18 151/91 H 100 Date Exam was Performed: 12/13/19 Time Exam was Performed: 03:53 - My Orders Last 24 Hours: My Active Orders 12/13/19 02:56 EKG 12 Lead [EKG Documentation Completion] [RC] STAT 12/13/19 03:03 Chest 1V Frontal [CR] Urgent - Assessment/Plan Last 24 Hours: My Active Orders 12/13/19 02:56 EKG 12 Lead [EKG Documentation Completion] [RC] STAT 12/13/19 03:03 Chest 1V Frontal [CR] Urgent
[2019-12-13 03:33] LABS: ANION GAP 13.4 mEq/L (7-13); CHLORIDE,CL 102 mmol/L (98-107); SODIUM,NA 138 mmol/L (136-145)
[2019-12-13 04:11] VITALS: BP 151/91; PULSE 110
== END 2019-12-13 04:07 | disposition home or self-care (01) ==
LOC: DL.ED 02:40
DX: K21.9 Gastro-esophageal reflux disease without esophagitis (principal); I12.9 Hypertensive chronic kidney disease with stage 1 through stage 4 chronic kidney disease, or unspecified chronic kidney disease; E11.22 Type 2 diabetes mellitus with diabetic chronic kidney disease; N18.9 Chronic kidney disease, unspecified; I48.91 Unspecified atrial fibrillation; E78.00 Pure hypercholesterolemia, unspecified; I25.10 Atherosclerotic heart disease of native coronary artery without angina pectoris; Z91.041 Radiographic dye allergy status; Z88.8 Allergy status to other drugs, medicaments and biological substances; Z79.84 Long term (current) use of oral hypoglycemic drugs; Z86.73 Personal history of transient ischemic attack (TIA), and cerebral infarction without residual deficits; Z79.02 Long term (current) use of antithrombotics/antiplatelets; Z79.899 Other long term (current) drug therapy; Z87.891 Personal history of nicotine dependence
CPT/HCPCS: 36415; 80053; 82150; 83690; 83880; 84484; 85025; 93005; 99283; 99285-25

== ENCOUNTER 2020-01-08 04:25 | Emergency (ER) | payer MEDICARE, BC ==
[2020-01-08 04:34] VITALS: BP 159/97; PULSE 112
--- NOTE | 2020-01-08 04:47 | CR ---
PROCEDURE INFORMATION: Exam: XR Chest, 1 View Exam date and time: 01/08/2020 4:32 AM Age: 84 years old Clinical indication: Chest pain TECHNIQUE: Imaging protocol: XR of the chest Views: 1 view. COMPARISON: CR Chest 1V Frontal 09/12/2019 1:20 PM FINDINGS: Lungs: Unremarkable. No consolidation. Pleural space: Unremarkable. No pleural effusion. No pneumothorax. Heart/Mediastinum: Unremarkable. No cardiomegaly. Bones/joints: Unremarkable. IMPRESSION: 1. No acute findings. 2. Status post open heart surgery 3. Dual chamber pacemaker with leads in good position
--- NOTE | 2020-01-08 04:56 | EDM.PDOC ---
ED HPI GENERAL MEDICAL PROBLEM - General Chief Complaint: Chest Pain Stated Complaint: CHEST PAIN Time Seen by Provider: 01/08/20 04:45 Source of Information: Reports: Patient History Limitations: Reports: No Limitations - History of Present Illness INITIAL COMMENTS - FREE TEXT/NARRATIVE: This 84 yo male patient reports to the ED due to right sided chest pain. The patient reports his chest pain started at about 0100 this morning, but went away as soon as he got to the ED. The patient reports he took some antacid with no changes to his symptoms. The patient has been seen with similar symptoms in the past. The patient has a history of CHF and is currently on a diuretic. Onset: Today Duration: Resolved Prior to Arrival Location: Reports: Chest (right sided) Quality: Reports: Ache Severity: Moderate Improves with: Reports: None Worsens with: Reports: None Context: Reports: Other Associated Symptoms: Reports: No Other Symptoms - Related Data Allergies Allergy/AdvReac Type Severity Reaction Status Date / Time Iodinated Contrast Media Allergy Cannot Verified 10/27/19 03:58 [Iodinated Contrast Media - Remember IV Dye] niacin Allergy Cannot Verified 10/27/19 03:58 Remember Home Meds: Home Meds Metoprolol Succinate [Toprol XL] 150 mg PO DAILY 12/29/14 [History] metFORMIN [Glucophage] 500 mg PO BID 12/29/14 [History] Finasteride [Proscar] 5 mg PO DAILY 03/16/16 [History] Tamsulosin [Flomax] 0.4 mg PO DAILY 03/16/16 [History] Furosemide [Lasix] 40 mg PO DAILY 04/27/18 [History] Nitroglycerin [Nitrostat] 0.4 mg SL ASDIRECTED PRN 04/27/18 [History] Umeclidinium Brm/Vilanterol Tr [Anoro Ellipta 62.5-25 MCG] 1 puff IH DAILY 04/27/18 [History] atorvaSTATin [Lipitor] 40 mg PO DAILY 04/27/18 [History] Apixaban [Eliquis] 2.5 mg PO BID 07/04/18 [History] Digoxin 125 mcg PO DAILY 07/04/18 [History] ramipriL [Ramipril] 2.5 mg PO DAILY 07/04/18 [History] Clopidogrel [Plavix] 75 mg PO DAILY 07/27/18 [History] Apixaban [Eliquis] 2.5 mg PO BID 09/12/19 [History] Finasteride 5 mg PO DAILY 09/12/19 [History] Omeprazole 20 mg PO DAILY 09/12/19 [History] Past Medical History HEENT History: Reports: Cataract, Impaired Vision Cardiovascular History: Reports: Afib, CAD, High Cholesterol, Hypertension, Pacemaker Respiratory History: Reports: SOB Gastrointestinal History: Reports: GERD Genitourinary History: Reports: Chronic Renal Insuffiency, Prostate Disorder, Retention, Urinary, Other (See Below) Other Genitourinary History: bladder spasms Musculoskeletal History: Reports: Fracture, Osteoarthritis Neurological History: Reports: TIA Psychiatric History: Reports: None Endocrine/Metabolic History: Reports: Diabetes, Type II Hematologic History: Reports: None Immunologic History: Reports: None Oncologic (Cancer) History: Reports: Prostate Dermatologic History: Reports: Other (See Below) Other Dermatologic History: actinic keratosis - Infectious Disease History Infectious Disease History: Reports: Chicken Pox, Measles, Mumps, Shingles - Past Surgical History HEENT Surgical History: Reports: Adenoidectomy, Cataract Surgery, Tonsillectomy Cardiovascular Surgical History: Reports: Coronary Artery Bypass GI Surgical History: Reports: None Male Surgical History: Reports: Other (See Below) Other Male Surgeries/Procedures: cystourethroscopy, nephrolithiasis Endocrine Surgical History: Reports: None Neurological Surgical History: Reports: None Musculoskeletal Surgical History: Reports: None Dermatological Surgical History: Reports: None Social & Family History - Family History Family Medical History: Noncontributory - Tobacco Use Smoking Status *Q: Never Smoker - Caffeine Use Caffeine Use: Reports: None Caffeine Use Comment: Drinks lots of coffee - Recreational Drug Use Recreational Drug Use: No - Living Situation & Occupation Occupation: Retired ED ROS GENERAL - Review of Systems Review Of Systems: Comprehensive ROS is negative, except as noted in HPI. ED EXAM, GENERAL - Physical Exam Exam: See Below Exam Limited By: No Limitations General Appearance: Alert, WD/WN, Anxious, Mild Distress Eye Exam: Bilateral Eye: EOMI, Normal Inspection, PERRL Ears: Normal External Exam, Normal Canal, Hearing Grossly Normal, Normal TMs Nose: Normal Inspection, Normal Mucosa, No Blood Throat/Mouth: Normal Inspection, Normal Lips, Normal Teeth, Normal Gums, Normal Oropharynx, Normal Voice, No Airway Compromise Head: Atraumatic, Normocephalic Neck: Normal Inspection, Supple, Non-Tender, Full Range of Motion Respiratory/Chest: No Respiratory Distress, Lungs Clear, Normal Breath Sounds, No Accessory Muscle Use, Chest Non-Tender Cardiovascular: Normal Peripheral Pulses, Regular Rate, Rhythm, No Edema, No Gallop, No JVD, No Murmur, No Rub GI/Abdominal: Normal Bowel Sounds, Soft, Non-Tender, No Organomegaly, No Distention, No Abnormal Bruit, No Mass (Male) Exam: Deferred Rectal (Males) Exam: Deferred Back Exam: Normal Inspection, Full Range of Motion, NT Extremities: Normal Inspection, Normal Range of Motion, Non-Tender, Normal Capillary Refill, No Pedal Edema Neurological: Alert, Oriented, CN II-XII Intact, Normal Cognition, Normal Gait, Normal Reflexes, No Motor/Sensory Deficits Psychiatric: Anxious Skin Exam: Warm, Dry, Intact, Normal Color, No Rash Lymphatic: No Adenopathy Course - Vital Signs Last Recorded V/S: Last Vital Signs Temp 36.7 C 01/08/20 04:31 Pulse 112 H 01/08/20 04:31 Resp 18 01/08/20 04:31 BP 159/97 H 01/08/20 04:31 Pulse Ox 100 01/08/20 04:31 - Orders/Labs/Meds Orders: Active Orders 24 hr Category Date Time Status EKG Documentation Completion [RC] STAT Care 01/08/20 04:26 Active B-TYPE NATRIURETIC PEPTIDE,BNP [CHEM] Stat Lab 01/08/20 04:44 Results COMPREHENSIVE METABOLIC PN,CMP [CHEM] Stat Lab 01/08/20 04:44 Results TROPONIN I [CHEM] Stat Lab 01/08/20 04:44 Results Labs: Laboratory Tests 01/08/20 01/08/20 Range/Units 04:44 04:44 WBC 6.6 (5.0-10.0) 10^3/uL RBC 5.15 (4.6-6.2) 10^6/uL Hgb 13.7 L (14.0-18.0) g/dL Hct 41.9 (40.0-54.0) % MCV 81.4 (80-100) fL MCH 26.6 L (27.0-34.0) pg MCHC 32.7 L (33.0-35.0) g/dL Plt Count 166 (150-450) 10^3/uL Neut % (Auto) 56.0 (42.2-75.2) % Lymph % (Auto) 28.9 (20.5-50.1) % [place] % (Auto) 12.5 H (2-8) % Eos % (Auto) 2.0 (1.0-3.0) % Baso % (Auto) 0.6 (0.0-1.0) % B-Natriuretic Peptide 99 (0-100) pg/ml Departure - Departure Time of Disposition: 05:42 Disposition: Home, Self-Care 01 Condition: Fair Clinical Impression: Nonspecific chest pain Instructions: Nonspecific Chest Pain, Adult, [id number] Forms: ED Department Discharge Care Plan Goals: The patient was advised of the examination, lab, EKG and x-ray results during the visit. The patient was encouraged to take his medications as directed. If the patient has any additional symptoms or concerns, the patient should either follow-up with his primary care facility or return to the emergency department. Sepsis Event Note (ED) - Evaluation Sepsis Screening Result: No Definite Risk - Focused Exam Vital Signs: Vital Signs Temp Pulse Resp BP Pulse Ox 01/08/20 04:31 36.7 C 112 H 18 159/97 H 100 - My Orders Last 24 Hours: My Active Orders 01/08/20 04:26 EKG Documentation Completion [RC] STAT 01/08/20 04:44 B-TYPE NATRIURETIC PEPTIDE,BNP [CHEM] Stat COMPREHENSIVE METABOLIC PN,CMP [CHEM] Stat TROPONIN I [CHEM] Stat - Assessment/Plan Last 24 Hours: My Active Orders 01/08/20 04:26 EKG Documentation Completion [RC] STAT 01/08/20 04:44 B-TYPE NATRIURETIC PEPTIDE,BNP [CHEM] Stat COMPREHENSIVE METABOLIC PN,CMP [CHEM] Stat TROPONIN I [CHEM] Stat
[2020-01-08 05:38] LABS: ANION GAP 13.9 mEq/L (7-13); CHLORIDE,CL 102 mmol/L (98-107); SODIUM,NA 136 mmol/L (136-145)
== END 2020-01-08 05:50 | disposition home or self-care (01) ==
LOC: DL.ED 04:25
DX: R07.9 Chest pain, unspecified (principal); I12.9 Hypertensive chronic kidney disease with stage 1 through stage 4 chronic kidney disease, or unspecified chronic kidney disease; E11.22 Type 2 diabetes mellitus with diabetic chronic kidney disease; N18.9 Chronic kidney disease, unspecified; E78.00 Pure hypercholesterolemia, unspecified; I25.10 Atherosclerotic heart disease of native coronary artery without angina pectoris; I48.91 Unspecified atrial fibrillation; K21.9 Gastro-esophageal reflux disease without esophagitis; M19.90 Unspecified osteoarthritis, unspecified site; Z79.01 Long term (current) use of anticoagulants; Z79.02 Long term (current) use of antithrombotics/antiplatelets; Z79.899 Other long term (current) drug therapy; Z91.041 Radiographic dye allergy status; Z79.84 Long term (current) use of oral hypoglycemic drugs; Z88.8 Allergy status to other drugs, medicaments and biological substances
CPT/HCPCS: 36415; 71045; 80053; 83880; 84484; 85025; 93005; 99285-25

== ENCOUNTER 2020-03-22 02:00 | Emergency (ER) | payer MEDICARE, BC ==
--- NOTE | 2020-03-22 02:14 | EDM.PDOC ---
ED HPI GENERAL MEDICAL PROBLEM - General Chief Complaint: Chest Pain Stated Complaint: CHEST PAIN Time Seen by Provider: 03/22/20 02:13 Source of Information: Reports: Patient History Limitations: Reports: No Limitations - History of Present Illness INITIAL COMMENTS - FREE TEXT/NARRATIVE: woke up with chest pain about midnight but gone now. - Related Data Allergies Allergy/AdvReac Type Severity Reaction Status Date / Time Iodinated Contrast Media Allergy Cannot Verified 03/22/20 02:10 [Iodinated Contrast Media - Remember IV Dye] niacin Allergy Cannot Verified 03/22/20 02:10 Remember Home Meds: Home Meds Metoprolol Succinate [Toprol XL] 150 mg PO DAILY 12/29/14 [History] metFORMIN [Glucophage] 500 mg PO BID 12/29/14 [History] Finasteride [Proscar] 5 mg PO DAILY 03/16/16 [History] Tamsulosin [Flomax] 0.4 mg PO DAILY 03/16/16 [History] Furosemide [Lasix] 40 mg PO DAILY 04/27/18 [History] Nitroglycerin [Nitrostat] 0.4 mg SL ASDIRECTED PRN 04/27/18 [History] Umeclidinium Brm/Vilanterol Tr [Anoro Ellipta 62.5-25 MCG] 1 puff IH DAILY 04/27/18 [History] atorvaSTATin [Lipitor] 40 mg PO DAILY 04/27/18 [History] Apixaban [Eliquis] 2.5 mg PO BID 07/04/18 [History] Digoxin 125 mcg PO DAILY 07/04/18 [History] ramipriL [Ramipril] 2.5 mg PO DAILY 07/04/18 [History] Clopidogrel [Plavix] 75 mg PO DAILY 07/27/18 [History] Apixaban [Eliquis] 2.5 mg PO BID 09/12/19 [History] Finasteride 5 mg PO DAILY 09/12/19 [History] Omeprazole 20 mg PO DAILY 09/12/19 [History] Past Medical History HEENT History: Reports: Cataract, Impaired Vision Cardiovascular History: Reports: Afib, CAD, High Cholesterol, Hypertension, Pa cemaker Respiratory History: Reports: SOB Gastrointestinal History: Reports: GERD Genitourinary History: Reports: Chronic Renal Insuffiency, Prostate Disorder, Retention, Urinary, Other (See Below) Other Genitourinary History: bladder spasms Musculoskeletal History: Reports: Fracture, Osteoarthritis Neurological History: Reports: TIA Psychiatric History: Reports: None Endocrine/Metabolic History: Reports: Diabetes, Type II Hematologic History: Reports: None Immunologic History: Reports: None Oncologic (Cancer) History: Reports: Prostate Dermatologic History: Reports: Other (See Below) Other Dermatologic History: actinic keratosis - Infectious Disease History Infectious Disease History: Reports: Chicken Pox, Measles, Mumps, Shingles - Past Surgical History HEENT Surgical History: Reports: Adenoidectomy, Cataract Surgery, Tonsillectomy Cardiovascular Surgical History: Reports: Coronary Artery Bypass GI Surgical History: Reports: None Male Surgical History: Reports: Other (See Below) Other Male Surgeries/Procedures: cystourethroscopy, nephrolithiasis Endocrine Surgical History: Reports: None Neurological Surgical History: Reports: None Musculoskeletal Surgical History: Reports: None Dermatological Surgical History: Reports: None Social & Family History - Family History Family Medical History: Noncontributory - Caffeine Use Caffeine Use: Reports: None Caffeine Use Comment: Drinks lots of coffee - Living Situation & Occupation Occupation: Retired ED ROS GENERAL - Review of Systems Review Of Systems: Comprehensive ROS is negative, except as noted in HPI. ED EXAM, GENERAL - Physical Exam Exam: See Below Exam Limited By: No Limitations General Appearance: Alert, WD/WN, Anxious, Mild Distress Ears: Hearing Grossly Normal Throat/Mouth: Normal Voice, No Airway Compromise Head: Atraumatic Neck: Non-Tender, Full Range of Motion Respiratory/Chest: No Respiratory Distress Cardiovascular: Irregularly Irregular GI/Abdominal: Soft, Non-Tender (Male) Exam: Deferred Rectal (Males) Exam: Deferred Neurological: Alert, Oriented, Normal Cognition, Normal Gait, No Motor/Sensory Deficits Psychiatric: Anxious Skin Exam: Warm, Dry, Normal Color Lymphatic: No Adenopathy Course - Vital Signs Last Recorded V/S: Last Vital Signs Temp 37.0 C 03/22/20 02:10 Pulse 77 03/22/20 02:36 Resp 16 03/22/20 02:10 BP 108/57 L 03/22/20 02:36 Pulse Ox 98 03/22/20 02:10 - Orders/Labs/Meds Orders: Active Orders 24 hr Category Date Time Status EKG 12 Lead [EKG Documentation Completion] [RC] STAT Care 03/22/20 02:12 Active Labs: Laboratory Tests 03/22/20 03/22/20 Range/Units 02:13 02:13 WBC 8.1 (5.0-10.0) 10^3/uL RBC 4.80 (4.6-6.2) 10^6/uL Hgb 13.9 L (14.0-18.0) g/dL Hct 41.8 (40.0-54.0) % MCV 87.1 D (80-100) fL MCH 29.0 (27.0-34.0) pg MCHC 33.3 (33.0-35.0) g/dL Plt Count 168 (150-450) 10^3/uL Neut % (Auto) 62.3 (42.2-75.2) % Lymph % (Auto) 23.9 (20.5-50.1) % [place] % (Auto) 11.3 H (2-8) % Eos % (Auto) 2.1 (1.0-3.0) % Baso % (Auto) 0.4 (0.0-1.0) % Sodium 137 (136-145) mmol/L Potassium 4.6 (3.5-5.1) mmol/L Chloride 102 (98-107) mmol/L Carbon Dioxide 26 (21-32) mmol/L Anion Gap 13.6 H (7-13) mEq/L BUN 39 H (7-18) mg/dL Creatinine 1.04 (0.70-1.30) mg/dL Est Cr Clr Drug Dosing 58.75 mL/min Estimated GFR (MDRD) > 60 BUN/Creatinine Ratio 37.5 (No establ ref range) Glucose 133 H (74-99) mg/dL Calcium 10.0 (8.5-10.1) mg/dL Total Bilirubin 0.5 (0.2-1.0) mg/dL AST 13 L (15-37) U/L ALT 23 (16-63) U/L Alkaline Phosphatase 113 (46-116) U/L Troponin I < 0.017 (0.000-0.056) ng/mL B-Natriuretic Peptide 111 H (0-100) pg/ml Total Protein 7.3 (6.4-8.2) g/dL Albumin 3.9 (3.4-5.0) g/dL Globulin 3.4 Albumin/Globulin Ratio 1.1 Meds: Medications Discontinued Medications Generic Name Dose Route Start Last Admin Trade Name Bel[place]an PRN Reason Stop Dose Admin Diltiazem HCl 10 mg 03/22/20 02:18 03/22/20 02:23 Diltiazem IVPUSH 03/22/20 02:19 10 mg ONETIME ONE Administration - Re-Assessments/Exams Free Text/Narrative Re-Assessment/Exam: 03/22/20 02:58 results discussed with pt who remains discomfort free. prefers to go home. Departure - Departure Time of Disposition: 02:58 Disposition: Home, Self-Care 01 Condition: Good Clinical Impression: Atrial fibrillation with rapid ventricular response Instructions: Atrial Fibrillation, [id number] Forms: ED Department Discharge Additional Instructions: 1) rest 2) recheck if there is any change or concern Sepsis Event Note (ED) - Focused Exam Vital Signs: Vital Signs Temp Pulse Resp BP Pulse Ox 03/22/20 02:36 77 108/57 L 03/22/20 02:24 95 108/59 L 03/22/20 02:10 37.0 C 123 H 16 131/60 98 - My Orders Last 24 Hours: My Active Orders 03/22/20 02:12 EKG 12 Lead [EKG Documentation Completion] [RC] STAT - Assessment/Plan Last 24 Hours: My Active Orders 03/22/20 02:12 EKG 12 Lead [EKG Documentation Completion] [RC] STAT
[2020-03-22] MEDS ORDERED: Diltiazem 25 MG/5 ML SDV IVPUSH ONE (02:18)
[2020-03-22 02:38] VITALS: BP 108/57; PULSE 77
[2020-03-22 02:42] LABS: ANION GAP 13.6 mEq/L (7-13); CHLORIDE,CL 102 mmol/L (98-107); SODIUM,NA 137 mmol/L (136-145)
== END 2020-03-22 03:07 | disposition home or self-care (01) ==
LOC: DL.ED 02:00
DX: I48.91 Unspecified atrial fibrillation (principal); I12.9 Hypertensive chronic kidney disease with stage 1 through stage 4 chronic kidney disease, or unspecified chronic kidney disease; E11.22 Type 2 diabetes mellitus with diabetic chronic kidney disease; N18.9 Chronic kidney disease, unspecified; E78.00 Pure hypercholesterolemia, unspecified; I25.10 Atherosclerotic heart disease of native coronary artery without angina pectoris; K21.9 Gastro-esophageal reflux disease without esophagitis; M19.90 Unspecified osteoarthritis, unspecified site; Z86.73 Personal history of transient ischemic attack (TIA), and cerebral infarction without residual deficits; Z95.1 Presence of aortocoronary bypass graft; Z91.041 Radiographic dye allergy status; Z79.01 Long term (current) use of anticoagulants; Z79.02 Long term (current) use of antithrombotics/antiplatelets; Z79.899 Other long term (current) drug therapy; Z88.8 Allergy status to other drugs, medicaments and biological substances
CPT/HCPCS: 36415; 80053; 83880; 84484; 85025; 93005; 96374; 99285; J3490

== ENCOUNTER 2020-04-20 07:00 | Emergency (ER) | payer MEDICARE, BC ==
--- NOTE | 2020-04-20 07:07 | EDM.PDOC ---
ED HPI GENERAL MEDICAL PROBLEM - General Chief Complaint: Chest Pain Stated Complaint: CHEST PAINS Time Seen by Provider: 04/20/20 07:24 Source of Information: Reports: Patient, RN, RN Notes Reviewed History Limitations: Reports: No Limitations - History of Present Illness INITIAL COMMENTS - FREE TEXT/NARRATIVE: The patient presents to the ED via personal vehicle for complaints of chest pain. He states this pain woke him up at about 0600 and persisted for about one hour. He relates he no longer has chest pain. He did not take any medications for alleviation of this pain, it dissipated on its own. The patient relates he follows with Dr. Lee at [facility] for Cardiology, as well as [facility] for CHF. His last appointment with Dr. Lee was this past Monday04/14/20, at which time a Zio patch was applied. He denies shortness of breath, palpitations, - Related Data Allergies Allergy/AdvReac Type Severity Reaction Status Date / Time Iodinated Contrast Media Allergy Cannot Verified 04/20/20 07:11 [Iodinated Contrast Media - Remember IV Dye] niacin Allergy Cannot Verified 04/20/20 07:11 Remember Home Meds: Home Meds Metoprolol Succinate [Toprol XL] 150 mg PO DAILY 12/29/14 [History] metFORMIN [Glucophage] 500 mg PO BID 12/29/14 [History] Finasteride [Proscar] 5 mg PO DAILY 03/16/16 [History] Tamsulosin [Flomax] 0.4 mg PO DAILY 03/16/16 [History] Furosemide [Lasix] 40 mg PO DAILY 04/27/18 [History] Nitroglycerin [Nitrostat] 0.4 mg SL ASDIRECTED PRN 04/27/18 [History] Umeclidinium Brm/Vilanterol Tr [Anoro Ellipta 62.5-25 MCG] 1 puff IH DAILY 04/27/18 [History] atorvaSTATin [Lipitor] 40 mg PO DAILY 04/27/18 [History] Apixaban [Eliquis] 2.5 mg PO BID 07/04/18 [History] Digoxin 125 mcg PO DAILY 07/04/18 [History] ramipriL [Ramipril] 2.5 mg PO DAILY 07/04/18 [History] Clopidogrel [Plavix] 75 mg PO DAILY 07/27/18 [History] Apixaban [Eliquis] 2.5 mg PO BID 09/12/19 [History] Finasteride 5 mg PO DAILY 09/12/19 [History] Omeprazole 20 mg PO DAILY 09/12/19 [History] Past Medical History HEENT History: Reports: Cataract, Impaired Vision Cardiovascular History: Reports: Afib, CAD, High Cholesterol, Hypertension, Pacemaker Respiratory History: Reports: SOB Gastrointestinal History: Reports: GERD Genitourinary History: Reports: Chronic Renal Insuffiency, Prostate Disorder, Retention, Urinary, Other (See Below) Other Genitourinary History: bladder spasms Musculoskeletal History: Reports: Fracture, Osteoarthritis Neurological History: Reports: TIA Psychiatric History: Reports: None Endocrine/Metabolic History: Reports: Diabetes, Type II Hematologic History: Reports: None Immunologic History: Reports: None Oncologic (Cancer) History: Reports: Prostate Dermatologic History: Reports: Other (See Below) Other Dermatologic History: actinic keratosis - Infectious Disease History Infectious Disease History: Reports: Chicken Pox, Measles, Mumps, Shingles - Past Surgical History HEENT Surgical History: Reports: Adenoidectomy, Cataract Surgery, Tonsillectomy Cardiovascular Surgical History: Reports: Coronary Artery Bypass GI Surgical History: Reports: None Male Surgical History: Reports: Other (See Below) Other Male Surgeries/Procedures: cystourethroscopy, nephrolithiasis Endocrine Surgical History: Reports: None Neurological Surgical History: Reports: None Musculoskeletal Surgical History: Reports: None Dermatological Surgical History: Reports: None Social & Family History - Family History Family Medical History: Noncontributory - Caffeine Use Caffeine Use: Reports: None Caffeine Use Comment: Drinks lots of coffee - Living Situation & Occupation Occupation: Retired ED ROS GENERAL - Review of Systems Review Of Systems: Comprehensive ROS is negative, except as noted in HPI. ED EXAM, GENERAL - Physical Exam Exam: See Below Exam Limited By: No Limitations General Appearance: Alert, WD/WN, No Apparent Distress Throat/Mouth: Normal Inspection, Normal Voice, No Airway Compromise Head: Atraumatic, Normocephalic Respiratory/Chest: No Respiratory Distress, Lungs Clear, Normal Breath Sounds, No Accessory Muscle Use, Chest Non-Tender Cardiovascular: No Rub, Systolic Murmur (4/6), Extra Beats, Irregularly Irregular Peripheral Pulses: 2+: Radial (L), Radial (R) GI/Abdominal: Normal Bowel Sounds, Soft, Non-Tender, No Distention, No Mass Extremities: Normal Inspection, Non-Tender, No Pedal Edema, Normal Capillary Refill Neurological: Alert, Oriented, CN II-XII Intact, Normal Gait, No Motor/Sensory Deficits Skin Exam: Warm, Dry, Intact, Normal Color, No Rash. No: Ecchymosis, Erythema, Petechiae, Rash EKG INTERPRETATION EKG Date: 04/20/20 Time: 07:13 Rhythm: A-Fib Rate (Beats/Min): 98 [place]: Normal P-Wave: Absent QRS: Wide ST-T: Depressed QT: Normal Comparison: No Change (AFib with PVC) Course - Vital Signs Last Recorded V/S: Last Vital Signs Temp 97.3 F 04/20/20 07:12 Pulse 90 04/20/20 07:12 Resp 20 04/20/20 07:12 BP 159/81 H 04/20/20 07:12 Pulse Ox 100 04/20/20 07:12 - Orders/Labs/Meds Orders: Active Orders 24 hr Category Date Time Status EKG 12 Lead [EKG Documentation Completion] [RC] STAT Care 04/20/20 07:10 Active Peripheral IV Care [RC] . DIRECTED Care 04/20/20 07:12 Active B-TYPE NATRIURETIC PEPTIDE,BNP [CHEM] Stat Lab 04/20/20 07:25 Results CMP [COMPREHENSIVE METABOLIC PN,CMP] [CHEM] Stat Lab 04/20/20 07:25 Results TROPONIN I [CHEM] Stat Lab 04/20/20 07:25 Results Sodium Chloride 0.9% [Saline Flush] Med 04/20/20 07:12 Active 10 ml FLUSH ASDIRECTED PRN Peripheral IV Insertion Adult [OM.PC] Stat Oth 04/20/20 07:12 Ordered Medication Orders Sodium Chloride (Saline Flush) 10 ml FLUSH ASDIRECTED PRN PRN Reason: Keep Vein Open Labs: Laboratory Tests 04/20/20 04/20/20 04/20/20 Range/Units 07:25 07:25 07:25 WBC 6.6 (5.0-10.0) 10^3/uL RBC 4.53 L (4.6-6.2) 10^6/uL Hgb 13.2 L (14.0-18.0) g/dL Hct 39.7 L (40.0-54.0) % MCV 87.6 (80-100) fL MCH 29.1 (27.0-34.0) pg MCHC 33.2 (33.0-35.0) g/dL Plt Count 153 (150-450) 10^3/uL Neut % (Auto) 67.2 (42.2-75.2) % Lymph % (Auto) 21.0 (20.5-50.1) % [place] % (Auto) 9.5 H (2-8) % Eos % (Auto) 1.7 (1.0-3.0) % Baso % (Auto) 0.6 (0.0-1.0) % PT 10.2 D (9.0-12.0) SEC INR 1.1 (0.9-1.2) APTT 25.2 (22.0-34.0) SEC Sodium 139 (136-145) mmol/L Potassium 4.4 (3.5-5.1) mmol/L Chloride 102 (98-107) mmol/L Carbon Dioxide 25 (21-32) mmol/L Anion Gap 16.4 H (7-13) mEq/L BUN 23 H (7-18) mg/dL Creatinine 0.93 (0.70-1.30) mg/dL Est Cr Clr Drug Dosing 65.06 mL/min Estimated GFR (MDRD) > 60 BUN/Creatinine Ratio 24.7 (No establ ref range) Glucose 206 H (74-99) mg/dL Calcium 9.2 (8.5-10.1) mg/dL Total Bilirubin 0.5 (0.2-1.0) mg/dL AST 12 L (15-37) U/L ALT 21 (16-63) U/L Alkaline Phosphatase 136 H (46-116) U/L Troponin I < 0.017 (0.000-0.056) ng/mL Total Protein 6.4 (6.4-8.2) g/dL Albumin 3.5 (3.4-5.0) g/dL Globulin 2.9 Albumin/Globulin Ratio 1.2 Meds: Medications Generic Name Dose Route Start Last Admin Trade Name Freq PRN Reason Stop Dose Admin Sodium Chloride 10 ml 04/20/20 07:12 Saline Flush FLUSH ASDIRECTED PRN Keep Vein Open - Radiology Interpretation Free Text/Narrative:: [facility] [place] [facility] Final Radiology Report Call: [phone] assistance Online chat: [email or web address] Name: JASON MAYFIELD Age: 84Years M Date: 04/20/2020 SSN: -- : 1935 Study: CR CHEST 1V FRONTAL Requesting Physician: Christie Lackey Images: 1 Addl Studies: Provided Clinical History: Chest pain Contrast: Contrast Medium: Contrast Amount: Contrast Method: CONFIDENTIALITY STATEMENT This report is intended only for use by the referring physician, and only in accordance with law. If you received this in error, call [phone]. Page 1 of 1 PROCEDURE INFORMATION: Exam: XR Chest, 1 View Exam date and time: 04/20/2020 7:31 AM Age: 84 years old Clinical indication: Chest pain; Type not specified; Prior surgery TECHNIQUE: Imaging protocol: XR of the chest Views: 1 view. COMPARISON: CR Chest 1V Frontal 01/08/2020 4:32 AM FINDINGS: Tubes, catheters and devices: Again noted are sternal wires. Again noted is the left-sided pacemaker. A new electronic device is adjacent to the pacemaker generator. Lungs: Pulmonary hyperexpansion, similar to previous. No pulmonary infiltrate or consolidation. Pleural space: Unremarkable. No pleural effusion. No pneumothorax. Heart/Mediastinum: Unremarkable. No cardiomegaly. Bones/joints: Unremarkable. IMPRESSION: No acute cardiopulmonary disease. Thank you for allowing us to participate in the care of your patient. Dictated and Authenticated by: Ravinder Valdez MD 04/20/2020 7:43 AM Central Time ([place] & [place]) - Re-Assessments/Exams Free Text/Narrative Re-Assessment/Exam: 04/20/20 08:31 Troponin and BNP unremarkable. CBC and CMP consistent with old labs. Elevated BS while NPO - patient states his PCP recently stopped is Glyburide. Instructed patient to continue tracking sugars and follow up with PCP. Will discharge home with instructions to follow up with [employer] regarding Ziopatch. Departure - Departure Time of Disposition: 08:37 Disposition: Home, Self-Care 01 Condition: Good Clinical Impression: Chest pain Qualifiers: Chest pain type: unspecified Qualified Code(s): R07.9 - Chest pain, unspecified Forms: ED Department Discharge Additional Instructions: Follow up with Cardiology with plan for Ziopatch. Follow up with Primary Care Provider regarding elevated AM blood sugar. Return to Primary Care Provider or ED with any worsening chest pain or shortness of breath. Sepsis Event Note (ED) - Focused Exam Vital Signs: Vital Signs Temp Pulse Resp BP Pulse Ox 04/20/20 07:12 97.3 F 90 20 159/81 H 100 - My Orders Last 24 Hours: My Active Orders 04/20/20 07:10 EKG 12 Lead [EKG Documentation Completion] [RC] STAT 04/20/20 07:12 Peripheral IV Care [RC] . DIRECTED Sodium Chloride 0.9% [Saline Flush] 10 ml FLUSH ASDIRECTED PRN Peripheral IV Insertion Adult [OM.PC] Stat 04/20/20 07:25 B-TYPE NATRIURETIC PEPTIDE,BNP [CHEM] Stat CMP [COMPREHENSIVE METABOLIC PN,CMP] [CHEM] Stat TROPONIN I [CHEM] Stat - Assessment/Plan Last 24 Hours: My Active Orders 04/20/20 07:10 EKG 12 Lead [EKG Documentation Completion] [RC] STAT 04/20/20 07:12 Peripheral IV Care [RC] . DIRECTED Sodium Chloride 0.9% [Saline Flush] 10 ml FLUSH ASDIRECTED PRN Peripheral IV Insertion Adult [OM.PC] Stat 04/20/20 07:25 B-TYPE NATRIURETIC PEPTIDE,BNP [CHEM] Stat CMP [COMPREHENSIVE METABOLIC PN,CMP] [CHEM] Stat TROPONIN I [CHEM] Stat
[2020-04-20] MEDS ORDERED: Sodium Chloride 0.9% 10 ML Syringe FLUSH PRN (07:12)
[2020-04-20 07:14] VITALS: BP 159/81; PULSE 90
--- NOTE | 2020-04-20 07:43 | CR ---
PROCEDURE INFORMATION: Exam: XR Chest, 1 View Exam date and time: 04/20/2020 7:31 AM Age: 84 years old Clinical indication: Chest pain; Type not specified; Prior surgery TECHNIQUE: Imaging protocol: XR of the chest Views: 1 view. COMPARISON: CR Chest 1V Frontal 01/08/2020 4:32 AM FINDINGS: Tubes, catheters and devices: Again noted are sternal wires. Again noted is the left-sided pacemaker. A new electronic device is adjacent to the pacemaker generator. Lungs: Pulmonary hyperexpansion, similar to previous. No pulmonary infiltrate or consolidation. Pleural space: Unremarkable. No pleural effusion. No pneumothorax. Heart/Mediastinum: Unremarkable. No cardiomegaly. Bones/joints: Unremarkable. IMPRESSION: No acute cardiopulmonary disease.
[2020-04-20 08:04] LABS: ANION GAP 16.4 mEq/L (7-13); CHLORIDE,CL 102 mmol/L (98-107); SODIUM,NA 139 mmol/L (136-145)
[2020-04-20 08:19] LABS: PTT,PARTIAL THROMBOPLSTIN TIME 25.2 SEC (22.0-34.0)
== END 2020-04-20 08:45 | disposition home or self-care (01) ==
LOC: DL.ED 07:00
DX: R07.9 Chest pain, unspecified (principal); I12.9 Hypertensive chronic kidney disease with stage 1 through stage 4 chronic kidney disease, or unspecified chronic kidney disease; E11.22 Type 2 diabetes mellitus with diabetic chronic kidney disease; N18.9 Chronic kidney disease, unspecified; I48.91 Unspecified atrial fibrillation; I25.10 Atherosclerotic heart disease of native coronary artery without angina pectoris; K21.9 Gastro-esophageal reflux disease without esophagitis; M19.90 Unspecified osteoarthritis, unspecified site; Z86.73 Personal history of transient ischemic attack (TIA), and cerebral infarction without residual deficits; Z79.899 Other long term (current) drug therapy; Z79.01 Long term (current) use of anticoagulants; Z79.02 Long term (current) use of antithrombotics/antiplatelets; Z91.041 Radiographic dye allergy status; Z88.8 Allergy status to other drugs, medicaments and biological substances
CPT/HCPCS: 36415; 71045; 80053; 83880; 84484; 85025; 85610; 85730; 93005; 93010; 99284; 99285-25

== ENCOUNTER 2020-06-19 07:58 | Emergency (ER) | payer MEDICARE, BC ==
--- NOTE | 2020-06-19 08:33 | EDM.PDOC ---
ED HPI GENERAL MEDICAL PROBLEM - General Chief Complaint: Chest Pain Stated Complaint: CHEST PAINS Time Seen by Provider: 06/19/20 08:41 Source of Information: Reports: Patient, Old Records, RN, RN Notes Reviewed History Limitations: Reports: No Limitations - History of Present Illness INITIAL COMMENTS - FREE TEXT/NARRATIVE: Patient presents to the ED via personal vehicle with complaints of chest pain. He states the chest pain began abruptly this morning upon awakening and has not progressively worsened. He rates the pain at a 3/10 on a verbal scale and states it is localized to the mid chest; it does not radiate. The patient has a cardiac history significant for CABG x4 in _. Review of records shows he had an ECHO performed on 06/17/2020, he states he has not received the results as of yet. The patient reports he has not taken his medications this morning. He denies fever, shaking chills, headache, vision changes, palpitations, shortness of breath, nausea, vomiting, or diarrhea. - Related Data Allergies Allergy/AdvReac Type Severity Reaction Status Date / Time Iodinated Contrast Media Allergy Cannot Verified 04/20/20 07:11 [Iodinated Contrast Media - Remember IV Dye] niacin Allergy Cannot Verified 04/20/20 07:11 Remember Home Meds: Home Meds Metoprolol Succinate [Toprol XL] 150 mg PO DAILY 12/29/14 [History] metFORMIN [Glucophage] 500 mg PO BID 12/29/14 [History] Finasteride [Proscar] 5 mg PO DAILY 03/16/16 [History] Tamsulosin [Flomax] 0.4 mg PO DAILY 03/16/16 [History] Furosemide [Lasix] 40 mg PO DAILY 04/27/18 [History] Nitroglycerin [Nitrostat] 0.4 mg SL ASDIRECTED PRN 04/27/18 [History] Umeclidinium Brm/Vilanterol Tr [Anoro Ellipta 62.5-25 MCG] 1 puff IH DAILY 04/27/18 [History] atorvaSTATin [Lipitor] 40 mg PO DAILY 04/27/18 [History] Apixaban [Eliquis] 2.5 mg PO BID 07/04/18 [History] Digoxin 125 mcg PO DAILY 07/04/18 [History] ramipriL [Ramipril] 2.5 mg PO DAILY 07/04/18 [History] Clopidogrel [Plavix] 75 mg PO DAILY 07/27/18 [History] Apixaban [Eliquis] 2.5 mg PO BID 09/12/19 [History] Finasteride 5 mg PO DAILY 09/12/19 [History] Omeprazole 20 mg PO DAILY 09/12/19 [History] Past Medical History HEENT History: Reports: Cataract, Impaired Vision Cardiovascular History: Reports: Afib, CAD, High Cholesterol, Hypertension, Pacemaker Respiratory History: Reports: SOB Gastrointestinal History: Reports: GERD Genitourinary History: Reports: Chronic Renal Insuffiency, Prostate Disorder, Retention, Urinary, Other (See Below) Other Genitourinary History: bladder spasms Musculoskeletal History: Reports: Fracture, Osteoarthritis Neurological History: Reports: TIA Psychiatric History: Reports: None Endocrine/Metabolic History: Reports: Diabetes, Type II Hematologic History: Reports: None Immunologic History: Reports: None Oncologic (Cancer) History: Reports: Prostate Dermatologic History: Reports: Other (See Below) Other Dermatologic History: actinic keratosis - Infectious Disease History Infectious Disease History: Reports: Chicken Pox, Measles, Mumps, Shingles - Past Surgical History HEENT Surgical History: Reports: Adenoidectomy, Cataract Surgery, Tonsillectomy Cardiovascular Surgical History: Reports: Coronary Artery Bypass GI Surgical History: Reports: None Male Surgical History: Reports: Other (See Below) Other Male Surgeries/Procedures: cystourethroscopy, nephrolithiasis Endocrine Surgical History: Reports: None Neurological Surgical History: Reports: None Musculoskeletal Surgical History: Reports: None Dermatological Surgical History: Reports: None Social & Family History - Family History Family Medical History: No Pertinent Family History - Caffeine Use Caffeine Use: Reports: None Caffeine Use Comment: Drinks lots of coffee - Living Situation & Occupation Occupation: Retired ED ROS GENERAL - Review of Systems Review Of Systems: Comprehensive ROS is negative, except as noted in HPI. ED EXAM, GENERAL - Physical Exam Exam: See Below Exam Limited By: No Limitations General Appearance: Alert, WD/WN, No Apparent Distress Eye Exam: Bilateral Eye: EOMI, Normal Inspection, PERRL (2mm) Ears: Normal External Exam, Hearing Loss Throat/Mouth: Normal Inspection, Normal Voice, No Airway Compromise. No: Normal Oropharynx (Dry mucous membranes) Head: Atraumatic, Normocephalic Neck: Normal Inspection, Supple, Non-Tender, Full Range of Motion. No: Lymphadenopathy (L), Lymphadenopathy (R) Respiratory/Chest: No Respiratory Distress, Lungs Clear, Normal Breath Sounds, No Accessory Muscle Use, Chest Non-Tender Cardiovascular: No Edema, No Gallop, No JVD, No Rub, Tachycardia, Systolic Murmur (Grade 3/6, greatest over the aortic area), Irregularly Irregular Peripheral Pulses: 1+: Radial (L), Radial (R), Dorsalis Pedis (L), Dorsalis Pedis (R) GI/Abdominal: Normal Bowel Sounds, Soft, Non-Tender, No Distention, No Mass (Male) Exam: Deferred Rectal (Males) Exam: Deferred Back Exam: Normal Inspection, Full Range of Motion. No: CVA Tenderness (L) Extremities: Normal Inspection, Normal Range of Motion, Non-Tender, No Pedal Edema, Normal Capillary Refill Neurological: Alert, Oriented, CN II-XII Intact, Normal Cognition, Normal Gait, No Motor/Sensory Deficits Psychiatric: Normal Affect, Normal Mood Skin Exam: Warm, Dry, Intact, Normal Color, No Rash. No: Ecchymosis, Erythema, Mottled, Pallor, Petechiae #1 Interpretation EKG Date: 06/19/20 Time: 08:21 Rhythm: A-Fib Rate (Beats/Min): 117 [place]: LAD-Left [place] Deviation P-Wave: Absent QRS: Normal ST-T: Elevated (In AVR) QT: Prolonged (480) Comparison: No Change EKG Interpretation Comments: AFib in 117; No evidence of acute ischemia Course - Orders/Labs/Meds Orders: Active Orders 24 hr Category Date Time Status EKG Documentation Completion [RC] STAT Care 06/19/20 08:08 Active CULTURE URINE [RM] Stat Lab 06/19/20 08:17 Received Labs: Laboratory Tests 06/19/20 06/19/20 06/19/20 Range/Units 08:17 08:22 08:22 WBC 8.4 (5.0-10.0) 10^3/uL RBC 4.44 L (4.6-6.2) 10^6/uL Hgb 12.8 L (14.0-18.0) g/dL Hct 38.9 L (40.0-54.0) % MCV 87.6 (80-100) fL MCH 28.8 (27.0-34.0) pg MCHC 32.9 L (33.0-35.0) g/dL Plt Count 169 (150-450) 10^3/uL Neut % (Auto) 67.3 (42.2-75.2) % Lymph % (Auto) 20.4 L (20.5-50.1) % [place] % (Auto) 10.2 H (2-8) % Eos % (Auto) 1.7 (1.0-3.0) % Baso % (Auto) 0.4 (0.0-1.0) % PT 10.4 (9.0-12.0) SEC INR 1.1 (0.9-1.2) APTT 23.9 (22.0-34.0) SEC Sodium (136-145) mmol/L Potassium (3.5-5.1) mmol/L Chloride (98-107) mmol/L Carbon Dioxide (21-32) mmol/L Anion Gap (7-13) mEq/L BUN (7-18) mg/dL Creatinine (0.70-1.30) mg/dL Est Cr Clr Drug Dosing Estimated GFR (MDRD) BUN/Creatinine Ratio (No establ ref range) Glucose (74-99) mg/dL Calcium (8.5-10.1) mg/dL Total Bilirubin (0.2-1.0) mg/dL AST (15-37) U/L ALT (16-63) U/L Alkaline Phosphatase (46-116) U/L Troponin I (0.000-0.056) ng/mL B-Natriuretic Peptide (0-100) pg/ml Total Protein (6.4-8.2) g/dL Albumin (3.4-5.0) g/dL Globulin Albumin/Globulin Ratio Urine Color Light yellow (YELLOW) Urine Appearance Turbid (CLEAR) Urine pH 6.0 (5.0-9.0) Ur Specific [place] 1.025 (1.005-1.030) Urine Protein 30 H (NEGATIVE) Urine Glucose (UA) Negative (NEGATIVE) Urine Ketones Negative (NEGATIVE) Urine Occult Blood Small H (NEGATIVE) Urine Nitrite Negative (NEGATIVE) Urine Bilirubin Negative (NEGATIVE) Urine Urobilinogen 0.2 (0.2-1.0) mg/dL Ur Leukocyte Esterase Large H (NEGATIVE) Urine RBC 10-20 H /HPF Urine WBC >100 H (0-5/HPF) /HPF Ur Epithelial Cells Few (NOT SEEN) /HPF Urine Bacteria Few (0-FEW/HPF) /HPF Urine Mucus Few H (NOT SEEN) /LPF Urine Yeast Many H (NOT SEEN) /HPF 06/19/20 Range/Units 08:22 WBC (5.0-10.0) 10^3/uL RBC (4.6-6.2) 10^6/uL Hgb (14.0-18.0) g/dL Hct (40.0-54.0) % MCV (80-100) fL MCH (27.0-34.0) pg MCHC (33.0-35.0) g/dL Plt Count (150-450) 10^3/uL Neut % (Auto) (42.2-75.2) % Lymph % (Auto) (20.5-50.1) % [place] % (Auto) (2-8) % Eos % (Auto) (1.0-3.0) % Baso % (Auto) (0.0-1.0) % PT (9.0-12.0) SEC INR (0.9-1.2) APTT (22.0-34.0) SEC Sodium 136 (136-145) mmol/L Potassium 3.9 (3.5-5.1) mmol/L Chloride 101 (98-107) mmol/L Carbon Dioxide 28 (21-32) mmol/L Anion Gap 10.9 (7-13) mEq/L BUN 22 H (7-18) mg/dL Creatinine 0.96 (0.70-1.30) mg/dL Est Cr Clr Drug Dosing TNP Estimated GFR (MDRD) > 60 BUN/Creatinine Ratio 22.9 (No establ ref range) Glucose 186 H (74-99) mg/dL Calcium 9.2 (8.5-10.1) mg/dL Total Bilirubin 0.5 (0.2-1.0) mg/dL AST 13 L (15-37) U/L ALT 22 (16-63) U/L Alkaline Phosphatase 143 H (46-116) U/L Troponin I 0.018 (0.000-0.056) ng/mL B-Natriuretic Peptide 105 H (0-100) pg/ml Total Protein 7.4 (6.4-8.2) g/dL Albumin 3.9 (3.4-5.0) g/dL Globulin 3.5 Albumin/Globulin Ratio 1.1 Urine Color (YELLOW) Urine Appearance (CLEAR) Urine pH (5.0-9.0) Ur Specific [place] (1.005-1.030) Urine Protein (NEGATIVE) Urine Glucose (UA) (NEGATIVE) Urine Ketones (NEGATIVE) Urine Occult Blood (NEGATIVE) Urine Nitrite (NEGATIVE) Urine Bilirubin (NEGATIVE) Urine Urobilinogen (0.2-1.0) mg/dL Ur Leukocyte Esterase (NEGATIVE) Urine RBC /HPF Urine WBC (0-5/HPF) /HPF Ur Epithelial Cells (NOT SEEN) /HPF Urine Bacteria (0-FEW/HPF) /HPF Urine Mucus (NOT SEEN) /LPF Urine Yeast (NOT SEEN) /HPF - Radiology Interpretation Free Text/Narrative:: [facility] Final Radiology Report Call: [phone] assistance Online chat: [email or web address] Name: JASON MAYFIELD Age: 84Years M Date: 06/19/2020 SSN: -- : 1935 Study: CR CHEST 1V FRONTAL Requesting Physician: Christie Lackey Images: 1 Addl Studies: Provided Clinical History: Chest pain Contrast: Contrast Medium: Contrast Amount: Contrast Method: CONFIDENTIALITY STATEMENT This report is intended only for use by the referring physician, and only in accordance with law. If you received this in error, call [phone]. Page 1 of 1 PROCEDURE INFORMATION: Exam: XR Chest, 1 View Exam date and time: 06/19/2020 8:53 AM Age: 84 years old Clinical indication: Chest pain; Type not specified; Prior surgery TECHNIQUE: Imaging protocol: XR of the chest Views: 1 view. COMPARISON: CR Chest 1V Frontal 04/20/2020 7:31 AM FINDINGS: Tubes, catheters and devices: A pacemaker device is present, and its leads are in appropriate position. Lungs: Minimal atelectasis at the lung bases. Hyperinflated lung rodrigez Pleural space: Unremarkable. No pleural effusion. No pneumothorax. Heart/Mediastinum: Unremarkable. No cardiomegaly. Bones/joints: There is evidence of a previous sternotomy. IMPRESSION: Minimal atelectasis at the lung bases. Thank you for allowing us to participate in the care of your patient. Dictated and Authenticated by: Grant Ramon MD 06/19/2020 9:22 AM Central Time ([place] & [place]) Departure - Departure Time of Disposition: 09:15 Disposition: Home, Self-Care 01 Condition: Good Clinical Impression: Yeast cystitis, Scrotal swelling UTI (urinary tract infection) Qualifiers: Urinary tract infection type: acute cystitis Hematuria presence: without hematuria Qualified Code(s): N30.00 - Acute cystitis without hematuria Chest pain Qualifiers: Chest pain type: unspecified Qualified Code(s): R07.9 - Chest pain, unspecified Instructions: Urinary Tract Infection, Adult, [id number]-[id number] Forms: ED Department Discharge Additional Instructions: Rx: Fluconazole 1.) Take all of your fluconazole until it is gone. 2.) Follow up with your primary care provider in one week to reassess your scrotum. 3.) Take you AM doses of previously prescribed medications. 4.) Keep a pillow case (folded in half length-nolen) between your scrotum and groin; this will prevent skin breakdown and sores. Keep the area clean and dry and change the pillowcase as needed if it becomes soiled. - My Orders Last 24 Hours: My Active Orders 06/19/20 08:08 EKG Documentation Completion [RC] STAT 06/19/20 08:17 CULTURE URINE [RM] Stat - Assessment/Plan Last 24 Hours: My Active Orders 06/19/20 08:08 EKG Documentation Completion [RC] STAT 06/19/20 08:17 CULTURE URINE [RM] Stat
[2020-06-19 08:45] LABS: PTT,PARTIAL THROMBOPLSTIN TIME 23.9 SEC (22.0-34.0)
[2020-06-19 08:47] LABS: ANION GAP 10.9 mEq/L (7-13); CHLORIDE,CL 101 mmol/L (98-107); SODIUM,NA 136 mmol/L (136-145)
--- NOTE | 2020-06-19 09:22 | CR ---
PROCEDURE INFORMATION: Exam: XR Chest, 1 View Exam date and time: 06/19/2020 8:53 AM Age: 84 years old Clinical indication: Chest pain; Type not specified; Prior surgery TECHNIQUE: Imaging protocol: XR of the chest Views: 1 view. COMPARISON: CR Chest 1V Frontal 04/20/2020 7:31 AM FINDINGS: Tubes, catheters and devices: A pacemaker device is present, and its leads are in appropriate position. Lungs: Minimal atelectasis at the lung bases. Hyperinflated lung rodrigez Pleural space: Unremarkable. No pleural effusion. No pneumothorax. Heart/Mediastinum: Unremarkable. No cardiomegaly. Bones/joints: There is evidence of a previous sternotomy. IMPRESSION: Minimal atelectasis at the lung bases.
[2020-06-19 17:50] VITALS: BP 124/60; PULSE 80
== END 2020-06-19 09:55 | disposition home or self-care (01) ==
LOC: DL.ED 07:58
DX: R07.9 Chest pain, unspecified (principal); B37.41 Candidal cystitis and urethritis; N30.00 Acute cystitis without hematuria; N50.89 Other specified disorders of the male genital organs; I48.91 Unspecified atrial fibrillation; I25.10 Atherosclerotic heart disease of native coronary artery without angina pectoris; E78.00 Pure hypercholesterolemia, unspecified; E11.9 Type 2 diabetes mellitus without complications; N42.9 Disorder of prostate, unspecified; I12.9 Hypertensive chronic kidney disease with stage 1 through stage 4 chronic kidney disease, or unspecified chronic kidney disease; K21.9 Gastro-esophageal reflux disease without esophagitis; E11.22 Type 2 diabetes mellitus with diabetic chronic kidney disease; N18.9 Chronic kidney disease, unspecified; Z79.84 Long term (current) use of oral hypoglycemic drugs; Z79.01 Long term (current) use of anticoagulants; Z79.02 Long term (current) use of antithrombotics/antiplatelets; Z79.899 Other long term (current) drug therapy; Z86.73 Personal history of transient ischemic attack (TIA), and cerebral infarction without residual deficits; Z91.041 Radiographic dye allergy status; Z88.8 Allergy status to other drugs, medicaments and biological substances
CPT/HCPCS: 36415; 71045; 80053; 81001; 83880; 84484; 85025; 85610; 85730; 87086; 93005; 93010; 99284; 99285-25

== ENCOUNTER 2020-08-08 15:43 | Emergency (ER) | payer MEDICARE, BC ==
[2020-08-08 16:00] VITALS: BP 141/69; PULSE 106
[2020-08-08] MEDS ORDERED: Lidocaine 2% Jelly 10 ML Urojet MUCMEM ONE (16:04)
[2020-08-08] MEDS ORDERED: Tamsulosin 0.4 MG Cap.ER PO ONE (16:07)
[2020-08-08] MEDS ORDERED: Lidocaine 2% Jelly 10 ML Urojet ONE (16:08)
--- NOTE | 2020-08-08 16:13 | EDM.PDOC ---
<Jj Fuller - Last Filed: 08/08/20 17:13> ED HPI GENERAL MEDICAL PROBLEM - General Chief Complaint: General Stated Complaint: UNABLE TO URINATE, MUCH CONFUSSION Time Seen by Provider: 08/08/20 16:09 Source of Information: Reports: Patient History Limitations: Reports: No Limitations - History of Present Illness INITIAL COMMENTS - FREE TEXT/NARRATIVE: 84 y/o M c/o inability to urinate for two days. Pt has a hx of prostate cancer and has had several instances where he is unable to urinate and requires catheterization. Denies fever, cough, chills, drugs, etoh, cp, sob, flank pn. - Related Data Allergies Allergy/AdvReac Type Severity Reaction Status Date / Time Iodinated Contrast Media Allergy Cannot Verified 08/08/20 15:59 [Iodinated Contrast Media - Remember IV Dye] niacin Allergy Cannot Verified 08/08/20 15:59 Remember Home Meds: Home Meds Metoprolol Succinate [Toprol XL] 150 mg PO DAILY 12/29/14 [History] metFORMIN [Glucophage] 500 mg PO BID 12/29/14 [History] Finasteride [Proscar] 5 mg PO DAILY 03/16/16 [History] Tamsulosin [Flomax] 0.4 mg PO DAILY 03/16/16 [History] Furosemide [Lasix] 40 mg PO DAILY 04/27/18 [History] Nitroglycerin [Nitrostat] 0.4 mg SL ASDIRECTED PRN 04/27/18 [History] Umeclidinium Brm/Vilanterol Tr [Anoro Ellipta 62.5-25 MCG] 1 puff IH DAILY 04/27/18 [History] atorvaSTATin [Lipitor] 40 mg PO DAILY 04/27/18 [History] Apixaban [Eliquis] 2.5 mg PO BID 07/04/18 [History] Digoxin 125 mcg PO DAILY 07/04/18 [History] ramipriL [Ramipril] 2.5 mg PO DAILY 07/04/18 [History] Clopidogrel [Plavix] 75 mg PO DAILY 07/27/18 [History] Apixaban [Eliquis] 2.5 mg PO BID 09/12/19 [History] Finasteride 5 mg PO DAILY 09/12/19 [History] Omeprazole 20 mg PO DAILY 09/12/19 [History] Past Medical History HEENT History: Reports: Cataract, Impaired Vision Cardiovascular History: Reports: Afib, CAD, High Cholesterol, Hypertension, Pacemaker Respiratory History: Reports: SOB Gastrointestinal History: Reports: GERD Genitourinary History: Reports: Chronic Renal Insuffiency, Prostate Disorder, Retention, Urinary, Other (See Below) Other Genitourinary History: bladder spasms Musculoskeletal History: Reports: Fracture, Osteoarthritis Neurological History: Reports: TIA Psychiatric History: Reports: None Endocrine/Metabolic History: Reports: Diabetes, Type II Hematologic History: Reports: None Immunologic History: Reports: None Oncologic (Cancer) History: Reports: Prostate Dermatologic History: Reports: Other (See Below) Other Dermatologic History: actinic keratosis - Infectious Disease History Infectious Disease History: Reports: Chicken Pox, Measles, Mumps, Shingles - Past Surgical History HEENT Surgical History: Reports: Adenoidectomy, Cataract Surgery, Tonsillectomy Cardiovascular Surgical History: Reports: Coronary Artery Bypass GI Surgical History: Reports: None Male Surgical History: Reports: Other (See Below) Other Male Surgeries/Procedures: cystourethroscopy, nephrolithiasis Endocrine Surgical History: Reports: None Neurological Surgical History: Reports: None Musculoskeletal Surgical History: Reports: None Dermatological Surgical History: Reports: None Social & Family History - Family History Family Medical History: No Pertinent Family History - Tobacco Use Tobacco Use Status *Q: Never Tobacco User - Caffeine Use Caffeine Use: Reports: None Caffeine Use Comment: Drinks lots of coffee - Recreational Drug Use Recreational Drug Use: No - Living Situation & Occupation Occupation: Retired ED ROS GENERAL - Review of Systems Review Of Systems: Comprehensive ROS is negative, except as noted in HPI. ED EXAM, GENERAL - Physical Exam Exam: See Below Exam Limited By: No Limitations General Appearance: Alert, WD/WN, No Apparent Distress Throat/Mouth: Normal Inspection, Normal Lips, Normal Teeth, Normal Gums, Normal Oropharynx, Normal Voice, No Airway Compromise Head: Atraumatic, Normocephalic Neck: Normal Inspection, Supple, Non-Tender, Full Range of Motion Respiratory/Chest: No Respiratory Distress, Lungs Clear, Normal Breath Sounds, No Accessory Muscle Use, Chest Non-Tender (Male) Exam: Other (large hernaition of intestines into the scrotum reported as normal by patient.) Rectal (Males) Exam: Deferred Back Exam: Normal Inspection Extremities: Normal Inspection, Normal Range of Motion, Non-Tender, Normal Capillary Refill, No Pedal Edema Neurological: Alert, Oriented, CN II-XII Intact, Normal Cognition, Normal Gait, Normal Reflexes, No Motor/Sensory Deficits Psychiatric: Normal Affect, Normal Mood Skin Exam: Warm, Dry, Intact, Normal Color, No Rash Departure - Departure Time of Disposition: 17:13 Disposition: Home, Self-Care 01 Clinical Impression: Acute urinary retention - Discharge Information *PRESCRIPTION DRUG MONITORING PROGRAM REVIEWED*: Not Applicable *COPY OF PRESCRIPTION DRUG MONITORING REPORT IN PATIENT SUZY: Not Applicable Instructions: Acute Urinary Retention, Male, [id number] Forms: ED Department Discharge Additional Instructions: RX: Bactrim Follow up with your primary care facility as soon as possible to discuss cath eter and increasing Flomax. If any new symptoms or concerns develop, return to the ER or follow up with your primary care facility. Sepsis Event Note (ED) - Evaluation Sepsis Screening Result: No Definite Risk <Hugo Cameron - Last Filed: 08/08/20 17:17> Course - Vital Signs Last Recorded V/S: Last Vital Signs Temp 97.5 F 08/08/20 15:59 Pulse 106 H 08/08/20 15:59 Resp 20 08/08/20 15:59 BP 141/69 H 08/08/20 15:59 Pulse Ox 100 08/08/20 15:59 - Orders/Labs/Meds Orders: Active Orders 24 hr Category Date Time Status May Catheter Insertion [Insert Urinary Catheter] [OM. Care 08/08/20 16:15 Ordered PC] Q24H Urinary Catheter Assessment [RC] ASDIRECTED Care 08/08/20 16:07 Active CULTURE URINE [RM] Stat Lab 08/08/20 16:17 Received Labs: Laboratory Tests 08/08/20 08/08/20 08/08/20 Range/Units 16:17 16:18 16:18 WBC 8.4 (5.0-10.0) 10^3/uL RBC 4.52 L (4.6-6.2) 10^6/uL Hgb 12.5 L (14.0-18.0) g/dL Hct 38.2 L (40.0-54.0) % MCV 84.5 D (80-100) fL MCH 27.7 (27.0-34.0) pg MCHC 32.7 L (33.0-35.0) g/dL Plt Count 154 (150-450) 10^3/uL Neut % (Auto) 76.7 H (42.2-75.2) % Lymph % (Auto) 11.7 L (20.5-50.1) % [place] % (Auto) 10.7 H (2-8) % Eos % (Auto) 0.4 L (1.0-3.0) % Baso % (Auto) 0.5 (0.0-1.0) % Sodium 137 (136-145) mmol/L Potassium 4.2 (3.5-5.1) mmol/L Chloride 101 (98-107) mmol/L Carbon Dioxide 25 (21-32) mmol/L Anion Gap 15.2 H (7-13) mEq/L BUN 19 H (7-18) mg/dL Creatinine 0.97 (0.70-1.30) mg/dL Est Cr Clr Drug Dosing 62.08 mL/min Estimated GFR (MDRD) > 60 BUN/Creatinine Ratio 19.6 (No establ ref range) Glucose 165 H (74-99) mg/dL Calcium 9.5 (8.5-10.1) mg/dL Magnesium 1.8 (1.8-2.4) mg/dL Total Bilirubin 0.5 (0.2-1.0) mg/dL AST 14 L (15-37) U/L ALT 21 (16-63) U/L Alkaline Phosphatase 121 H (46-116) U/L Total Protein 7.1 (6.4-8.2) g/dL Albumin 3.9 (3.4-5.0) g/dL Globulin 3.2 Albumin/Globulin Ratio 1.2 Urine Color Yellow (YELLOW) Urine Appearance Cloudy (CLEAR) Urine pH 7.0 (5.0-9.0) Ur Specific [place] 1.015 (1.005-1.030) Urine Protein Negative (NEGATIVE) Urine Glucose (UA) Negative (NEGATIVE) Urine Ketones Negative (NEGATIVE) Urine Occult Blood Negative (NEGATIVE) Urine Nitrite Negative (NEGATIVE) Urine Bilirubin Negative (NEGATIVE) Urine Urobilinogen 0.2 (0.2-1.0) mg/dL Ur Leukocyte Esterase Small H (NEGATIVE) Urine RBC 0-5 /HPF Urine WBC 50-75 H (0-5/HPF) /HPF Ur Epithelial Cells Rare (NOT SEEN) /HPF Amorphous Sediment Few (NOT SEEN) /HPF Urine Bacteria Many H (0-FEW/HPF) /HPF Urine Mucus Not seen (NOT SEEN) /LPF Meds: Medications Discontinued Medications Generic Name Dose Route Start Last Admin Trade Name Beltran PRN Reason Stop Dose Admin Lidocaine HCl 10 ml 08/08/20 16:04 08/08/20 16:20 Xylocaine 2% Jelly MUCMEM 08/08/20 16:05 10 ml ONETIME ONE Administration Lidocaine HCl Confirm 08/08/20 16:08 08/08/20 16:19 Xylocaine 2% Jelly Administered 08/08/20 16:09 Not Given Dose 10 ml .ROUTE .STK-MED ONE Tamsulosin HCl 0.4 mg 08/08/20 16:07 08/08/20 16:23 Flomax PO 08/08/20 16:08 0.4 mg ONETIME ONE Administration - Re-Assessments/Exams Free Text/Narrative Re-Assessment/Exam: 08/08/20 16:57 I personally performed or re-performed the physical examination and medical decision making. I have verified all student documentation or findings, including history, physical exam and/or medical decision making. Departure - Departure Condition: Good Sepsis Event Note (ED) - Focused Exam Vital Signs: Vital Signs Temp Pulse Resp BP Pulse Ox 08/08/20 15:59 97.5 F 106 H 20 141/69 H 100
[2020-08-08 16:41] LABS: ANION GAP 15.2 mEq/L (7-13); CHLORIDE,CL 101 mmol/L (98-107); SODIUM,NA 137 mmol/L (136-145)
[2020-08-08] MEDS ORDERED: Sulfamethoxazole/Trimethoprim 800-160 MG Tab PO ONE (17:25)
== END 2020-08-08 17:40 | disposition home or self-care (01) ==
LOC: DL.ED 15:43
DX: R33.9 Retention of urine, unspecified (principal); I48.91 Unspecified atrial fibrillation; I25.10 Atherosclerotic heart disease of native coronary artery without angina pectoris; E78.00 Pure hypercholesterolemia, unspecified; I12.9 Hypertensive chronic kidney disease with stage 1 through stage 4 chronic kidney disease, or unspecified chronic kidney disease; N42.9 Disorder of prostate, unspecified; N18.9 Chronic kidney disease, unspecified; K21.9 Gastro-esophageal reflux disease without esophagitis; E11.22 Type 2 diabetes mellitus with diabetic chronic kidney disease; Z86.73 Personal history of transient ischemic attack (TIA), and cerebral infarction without residual deficits; Z79.84 Long term (current) use of oral hypoglycemic drugs; Z79.01 Long term (current) use of anticoagulants; Z79.02 Long term (current) use of antithrombotics/antiplatelets; Z91.041 Radiographic dye allergy status; Z88.8 Allergy status to other drugs, medicaments and biological substances
CPT/HCPCS: 36415; 51702; 80053; 81001; 83735; 85025; 87086; 99283; A9270; 87088; 87186

== ENCOUNTER 2020-08-13 05:25 | Emergency (ER) | payer MEDICARE, BC ==
[2020-08-13 05:43] VITALS: BP 107/68; PULSE 83
--- NOTE | 2020-08-13 06:13 | EDM.PDOC ---
ED HPI GENERAL MEDICAL PROBLEM - General Chief Complaint: Chest Pain Stated Complaint: CHEST PAIN Time Seen by Provider: 08/13/20 05:45 Source of Information: Reports: Patient History Limitations: Reports: No Limitations - History of Present Illness INITIAL COMMENTS - FREE TEXT/NARRATIVE: This 84 yo male patient reports to the ED due to chest pain that started at about midnight, but resolved upon arrival in the ED. The patient reports his pain was sharp and in the middle of his chest. The patient did not take anything for symptom relief. The patient's family reports that he also fell this morning at about 0430. The patient reports he fell to his bottom, but reports no injury from the fall. Onset: Today Duration: Constant, Resolved Prior to Arrival Location: Reports: Chest Quality: Reports: Ache, Sharp Severity: Moderate Improves with: Reports: None Worsens with: Reports: None Context: Reports: Other Associated Symptoms: Reports: Other - Related Data Allergies Allergy/AdvReac Type Severity Reaction Status Date / Time Iodinated Contrast Media Allergy Cannot Verified 08/08/20 17:42 [Iodinated Contrast Media - Remember IV Dye] niacin Allergy Cannot Verified 08/08/20 17:42 Remember Home Meds: Home Meds Metoprolol Succinate [Toprol XL] 150 mg PO DAILY 12/29/14 [History] metFORMIN [Glucophage] 500 mg PO BID 12/29/14 [History] Finasteride [Proscar] 5 mg PO DAILY 03/16/16 [History] Tamsulosin [Flomax] 0.4 mg PO DAILY 03/16/16 [History] Furosemide [Lasix] 40 mg PO DAILY 04/27/18 [History] Nitroglycerin [Nitrostat] 0.4 mg SL ASDIRECTED PRN 04/27/18 [History] Umeclidinium Brm/Vilanterol Tr [Anoro Ellipta 62.5-25 MCG] 1 puff IH DAILY 04/27/18 [History] atorvaSTATin [Lipitor] 40 mg PO DAILY 04/27/18 [History] Apixaban [Eliquis] 2.5 mg PO BID 07/04/18 [History] Digoxin 125 mcg PO DAILY 07/04/18 [History] ramipriL [Ramipril] 2.5 mg PO DAILY 07/04/18 [History] Clopidogrel [Plavix] 75 mg PO DAILY 07/27/18 [History] Apixaban [Eliquis] 2.5 mg PO BID 09/12/19 [History] Finasteride 5 mg PO DAILY 09/12/19 [History] Omeprazole 20 mg PO DAILY 09/12/19 [History] Past Medical History HEENT History: Reports: Cataract, Impaired Vision Cardiovascular History: Reports: Afib, CAD, High Cholesterol, Hypertension, Pacemaker Respiratory History: Reports: SOB Gastrointestinal History: Reports: GERD Genitourinary History: Reports: Chronic Renal Insuffiency, Prostate Disorder, Retention, Urinary, Other (See Below) Other Genitourinary History: bladder spasms Musculoskeletal History: Reports: Fracture, Osteoarthritis Neurological History: Reports: TIA Psychiatric History: Reports: None Endocrine/Metabolic History: Reports: Diabetes, Type II Hematologic History: Reports: None Immunologic History: Reports: None Oncologic (Cancer) History: Reports: Prostate Dermatologic History: Reports: Other (See Below) Other Dermatologic History: actinic keratosis - Infectious Disease History Infectious Disease History: Reports: Chicken Pox, Measles, Mumps, Shingles - Past Surgical History HEENT Surgical History: Reports: Adenoidectomy, Cataract Surgery, Tonsillectomy Cardiovascular Surgical History: Reports: Coronary Artery Bypass GI Surgical History: Reports: None Male Surgical History: Reports: Other (See Below) Other Male Surgeries/Procedures: cystourethroscopy, nephrolithiasis Endocrine Surgical History: Reports: None Neurological Surgical History: Reports: None Musculoskeletal Surgical History: Reports: None Dermatological Surgical History: Reports: None Social & Family History - Family History Family Medical History: No Pertinent Family History - Tobacco Use Tobacco Use Status *Q: Former Tobacco User Used Tobacco, but Quit: Yes Month/Year Tobacco Last Used: 1995 - Caffeine Use Caffeine Use: Reports: None Caffeine Use Comment: Drinks lots of coffee - Recreational Drug Use Recreational Drug Use: No - Living Situation & Occupation Occupation: Retired ED ROS GENERAL - Review of Systems Review Of Systems: Comprehensive ROS is negative, except as noted in HPI. ED EXAM, GENERAL - Physical Exam Exam: See Below Exam Limited By: No Limitations General Appearance: Alert, WD/WN, No Apparent Distress Eye Exam: Bilateral Eye: EOMI, Normal Inspection, PERRL Ears: Normal External Exam, Normal Canal, Hearing Grossly Normal, Normal TMs Nose: Normal Inspection, Normal Mucosa, No Blood Throat/Mouth: Normal Inspection, Normal Lips, Normal Teeth, Normal Gums, Normal Oropharynx, Normal Voice, No Airway Compromise Head: Atraumatic, Normocephalic Neck: Normal Inspection, Supple, Non-Tender, Full Range of Motion Respiratory/Chest: No Respiratory Distress, Lungs Clear, Normal Breath Sounds, No Accessory Muscle Use, Chest Non-Tender Cardiovascular: Irregularly Irregular GI/Abdominal: Normal Bowel Sounds, Soft, Non-Tender, No Organomegaly, No Distention, No Abnormal Bruit, No Mass (Male) Exam: Deferred Rectal (Males) Exam: Deferred Back Exam: Normal Inspection, Full Range of Motion, NT Extremities: Normal Inspection, Normal Range of Motion, Non-Tender, Normal Capillary Refill, No Pedal Edema Neurological: Alert, Oriented, CN II-XII Intact, Normal Cognition, Normal Gait, Normal Reflexes, No Motor/Sensory Deficits Psychiatric: Normal Affect, Normal Mood Skin Exam: Warm, Dry, Intact, Normal Color, No Rash Lymphatic: No Adenopathy Course - Vital Signs Last Recorded V/S: Last Vital Signs Temp 36.4 C 08/13/20 05:34 Pulse 83 08/13/20 05:34 Resp 16 08/13/20 05:34 BP 107/68 08/13/20 05:34 Pulse Ox 100 08/13/20 05:34 - Orders/Labs/Meds Orders: Active Orders 24 hr Category Date Time Status EKG Documentation Completion [RC] STAT Care 08/13/20 05:51 Active Chest 1V Frontal [CR] Urgent Exams 08/13/20 05:51 Ordered CULTURE BLOOD [BC] Stat Lab 08/13/20 05:51 Ordered LACTIC ACID [CHEM] Stat Lab 08/13/20 05:51 Ordered Labs: Laboratory Tests 08/13/20 08/13/20 Range/Units 05:49 05:49 WBC 7.0 (5.0-10.0) 10^3/uL RBC 4.56 L (4.6-6.2) 10^6/uL Hgb 12.8 L (14.0-18.0) g/dL Hct 38.8 L (40.0-54.0) % MCV 85.1 (80-100) fL MCH 28.1 (27.0-34.0) pg MCHC 33.0 (33.0-35.0) g/dL Plt Count 151 (150-450) 10^3/uL Neut % (Auto) 69.1 (42.2-75.2) % Lymph % (Auto) 17.5 L (20.5-50.1) % [place] % (Auto) 10.2 H (2-8) % Eos % (Auto) 2.8 (1.0-3.0) % Baso % (Auto) 0.4 (0.0-1.0) % Sodium 135 L (136-145) mmol/L Potassium 4.7 (3.5-5.1) mmol/L Chloride 100 (98-107) mmol/L Carbon Dioxide 25 (21-32) mmol/L Anion Gap 14.7 H (7-13) mEq/L BUN 17 (7-18) mg/dL Creatinine 1.08 (0.70-1.30) mg/dL Est Cr Clr Drug Dosing 54.88 mL/min Estimated GFR (MDRD) > 60 BUN/Creatinine Ratio 15.7 (No establ ref range) Glucose 151 H (74-99) mg/dL Calcium 8.4 L (8.5-10.1) mg/dL Total Bilirubin 0.4 (0.2-1.0) mg/dL AST 13 L (15-37) U/L ALT 19 (16-63) U/L Alkaline Phosphatase 112 (46-116) U/L Troponin I 0.018 (0.000-0.056) ng/mL Total Protein 7.3 (6.4-8.2) g/dL Albumin 3.9 (3.4-5.0) g/dL Globulin 3.4 Albumin/Globulin Ratio 1.15 Departure - Departure Time of Disposition: 06:52 Disposition: Home, Self-Care 01 Condition: Fair Clinical Impression: Nonspecific chest pain Instructions: Nonspecific Chest Pain, Adult, [id number] Forms: ED Department Discharge Care Plan Goals: The patient and family were advised of the examination, lab, x-ray and EKG results during the visit. The patient was encouraged to follow-up with his primary care facility. If the patient has any additional symptoms or concerns, the patient should either return to the emergency department or visit his primary care facility. Sepsis Event Note (ED) - Evaluation Sepsis Screening Result: No Definite Risk - Focused Exam Vital Signs: Vital Signs Temp Pulse Resp BP Pulse Ox 08/13/20 05:34 36.4 C 83 16 107/68 100 - My Orders Last 24 Hours: My Active Orders 08/13/20 05:51 EKG Documentation Completion [RC] STAT Chest 1V Frontal [CR] Urgent CULTURE BLOOD [BC] Stat LACTIC ACID [CHEM] Stat - Assessment/Plan Last 24 Hours: My Active Orders 08/13/20 05:51 EKG Documentation Completion [RC] STAT Chest 1V Frontal [CR] Urgent CULTURE BLOOD [BC] Stat LACTIC ACID [CHEM] Stat
[2020-08-13 06:18] LABS: ANION GAP 14.7 mEq/L (7-13); CHLORIDE,CL 100 mmol/L (98-107); SODIUM,NA 135 mmol/L (136-145)
--- NOTE | 2020-08-13 06:55 | CR ---
PROCEDURE INFORMATION: Exam: XR Chest, 1 View Exam date and time: 08/13/2020 6:31 AM Age: 84 years old Clinical indication: Chest pain TECHNIQUE: Imaging protocol: XR of the chest Views: 1 view. COMPARISON: CR Chest 1V Frontal 06/19/2020 8:53 AM FINDINGS: Tubes, catheters and devices: A pacemaker device is present, and its leads are in appropriate position. Lungs: Minimal ground-glass airspace disease within the right upper lung field. Pleural spaces: Unremarkable. No pleural effusion. No pneumothorax. Heart/Mediastinum: Unremarkable. No cardiomegaly. Bones/joints: Old left clavicular fracture. There is evidence of a previous sternotomy. IMPRESSION: 1. Minimal ground-glass airspace disease within the right upper lung field. 2. Followup radiographs recommended after appropriate therapy.
== END 2020-08-13 07:08 | disposition home or self-care (01) ==
LOC: DL.ED 05:25
DX: R07.9 Chest pain, unspecified (principal); I48.91 Unspecified atrial fibrillation; I25.10 Atherosclerotic heart disease of native coronary artery without angina pectoris; E78.00 Pure hypercholesterolemia, unspecified; K21.9 Gastro-esophageal reflux disease without esophagitis; N42.9 Disorder of prostate, unspecified; I12.9 Hypertensive chronic kidney disease with stage 1 through stage 4 chronic kidney disease, or unspecified chronic kidney disease; N18.9 Chronic kidney disease, unspecified; E11.22 Type 2 diabetes mellitus with diabetic chronic kidney disease; Z91.041 Radiographic dye allergy status; Z88.8 Allergy status to other drugs, medicaments and biological substances; Z79.01 Long term (current) use of anticoagulants; Z79.02 Long term (current) use of antithrombotics/antiplatelets; Z79.899 Other long term (current) drug therapy; Z86.73 Personal history of transient ischemic attack (TIA), and cerebral infarction without residual deficits; Z79.84 Long term (current) use of oral hypoglycemic drugs
CPT/HCPCS: 36415; 71045; 80053; 83605; 84484; 85025; 87040; 93005; 99283; 99285-25

== ENCOUNTER 2020-09-01 00:28 | Emergency (ER) | payer MEDICARE, BC ==
[2020-09-01 01:19] VITALS: BP 100/69; PULSE 88
[2020-09-01] MEDS ORDERED: Ciprofloxacin 500 MG Tab PO ONE (01:58)
--- NOTE | 2020-09-01 02:05 | EDM.PDOC ---
ED HPI GENERAL MEDICAL PROBLEM - General Chief Complaint: Genitourinary Problem Stated Complaint: CATHITER, TROUBLE GOING TO THE BATHROOM Time Seen by Provider: 09/01/20 01:34 Source of Information: Reports: Patient, Family, RN, RN Notes Reviewed History Limitations: Reports: No Limitations - History of Present Illness INITIAL COMMENTS - FREE TEXT/NARRATIVE: Patient is an 84-year-old male who presents to ER with his daughter with complaint of his catheter not working for the past few hours. Daughter states she did change the catheter and the nighttime bag would not stay connected to the catheter, continued to be pulled apart. States he did leak quite a bit a urine when it was not hooked up to the bag. But states since she put the leg bag on, a different bag that she has not noticed any flow to the bag. Upon arrival to the ER there is urine in the tubing and urine in the leg bag. Patient denies any pain or any feeling of full bladder. Daughter states the patient has not been drinking much water. Onset: Today - Related Data Allergies Allergy/AdvReac Type Severity Reaction Status Date / Time Iodinated Contrast Media Allergy Cannot Verified 09/01/20 01:19 [Iodinated Contrast Media - Remember IV Dye] niacin Allergy Cannot Verified 09/01/20 01:19 Remember Home Meds: Home Meds Metoprolol Succinate [Toprol XL] 150 mg PO DAILY 12/29/14 [History] metFORMIN [Glucophage] 500 mg PO BID 12/29/14 [History] Finasteride [Proscar] 5 mg PO DAILY 03/16/16 [History] Tamsulosin [Flomax] 0.4 mg PO DAILY 03/16/16 [History] Furosemide [Lasix] 40 mg PO DAILY 04/27/18 [History] Nitroglycerin [Nitrostat] 0.4 mg SL ASDIRECTED PRN 04/27/18 [History] Umeclidinium Brm/Vilanterol Tr [Anoro Ellipta 62.5-25 MCG] 1 puff IH DAILY 04/27/18 [History] atorvaSTATin [Lipitor] 40 mg PO DAILY 04/27/18 [History] Digoxin 125 mcg PO DAILY 07/04/18 [History] ramipriL [Ramipril] 2.5 mg PO DAILY 07/04/18 [History] Clopidogrel [Plavix] 75 mg PO DAILY 07/27/18 [History] Apixaban [Eliquis] 2.5 mg PO BID 09/12/19 [History] Omeprazole 20 mg PO DAILY 09/12/19 [History] Past Medical History HEENT History: Reports: Cataract, Impaired Vision Cardiovascular History: Reports: Afib, CAD, High Cholesterol, Hypertension, Pacemaker Respiratory History: Reports: SOB Gastrointestinal History: Reports: GERD Genitourinary History: Reports: Chronic Renal Insuffiency, Prostate Disorder, Retention, Urinary, Other (See Below) Other Genitourinary History: bladder spasms Musculoskeletal History: Reports: Fracture, Osteoarthritis Neurological History: Reports: TIA Psychiatric History: Reports: None Endocrine/Metabolic History: Reports: Diabetes, Type II Hematologic History: Reports: None Immunologic History: Reports: None Oncologic (Cancer) History: Reports: Prostate Dermatologic History: Reports: Other (See Below) Other Dermatologic History: actinic keratosis - Infectious Disease History Infectious Disease History: Reports: Chicken Pox, Measles, Mumps, Shingles - Past Surgical History HEENT Surgical History: Reports: Adenoidectomy, Cataract Surgery, Tonsillectomy Cardiovascular Surgical History: Reports: Coronary Artery Bypass GI Surgical History: Reports: None Male Surgical History: Reports: Other (See Below) Other Male Surgeries/Procedures: cystourethroscopy, nephrolithiasis Endocrine Surgical History: Reports: None Neurological Surgical History: Reports: None Musculoskeletal Surgical History: Reports: None Dermatological Surgical History: Reports: None Social & Family History - Family History Family Medical History: No Pertinent Family History - Tobacco Use Tobacco Use Status *Q: Never Tobacco User - Caffeine Use Caffeine Use: Reports: None Caffeine Use Comment: Drinks lots of coffee - Recreational Drug Use Recreational Drug Use: No - Living Situation & Occupation Occupation: Retired ED ROS GENERAL - Review of Systems Review Of Systems: Comprehensive ROS is negative, except as noted in HPI. ED EXAM, RENAL/ - Physical Exam Exam: See Below Exam Limited By: No Limitations General Appearance: Alert, WD/WN, No Apparent Distress Eye Exam: Bilateral Eye: EOMI, Normal Inspection Ears: Normal External Exam, Hearing Grossly Normal Nose: Normal Inspection Throat/Mouth: Normal Inspection, Normal Voice, No Airway Compromise Head: Atraumatic, Normocephalic Neck: Normal Inspection, Supple, Non-Tender, Full Range of Motion Respiratory/Chest: No Respiratory Distress, Lungs Clear, No Accessory Muscle Use, Chest Non-Tender, Decreased Breath Sounds Cardiovascular: Normal Peripheral Pulses, No Edema, No Gallop, No JVD, No Murmur, No Rub, Irregularly Irregular GI/Abdominal: Normal Bowel Sounds, Soft, Non-Tender (Male) Exam: Deferred Rectal (Males) Exam: Deferred Back Exam: Normal Inspection, Decreased Range of Motion Extremities: Normal Inspection, Non-Tender, No Pedal Edema, Normal Capillary Refill, Limited Range of Motion Neurological: Alert, Oriented, CN II-XII Intact, Normal Cognition, Normal Reflexes, No Motor/Sensory Deficits Psychiatric: Depressed Mood, Flat Affect Skin Exam: Warm, Dry, Intact, Normal Color, No Rash Lymphatic: No Adenopathy Course - Vital Signs Last Recorded V/S: Last Vital Signs Temp 97.5 F 09/01/20 01:14 Pulse 88 09/01/20 01:14 Resp 14 09/01/20 01:14 BP 100/69 09/01/20 01:14 Pulse Ox 97 09/01/20 01:14 - Orders/Labs/Meds Orders: Active Orders 24 hr Category Date Time Status Bladder Scan [RC] ASDIRECTED Care 09/01/20 01:37 Active CULTURE URINE [RM] Stat Lab 09/01/20 01:40 Received Labs: Laboratory Tests 09/01/20 Range/Units 01:40 Urine Color Yellow (YELLOW) Urine Appearance Turbid (CLEAR) Urine pH 5.5 (5.0-9.0) Ur Specific [place] 1.025 (1.005-1.030) Urine Protein 100 H (NEGATIVE) Urine Glucose (UA) Negative (NEGATIVE) Urine Ketones Negative (NEGATIVE) Urine Occult Blood Small H (NEGATIVE) Urine Nitrite Positive H (NEGATIVE) Urine Bilirubin Negative (NEGATIVE) Urine Urobilinogen 0.2 (0.2-1.0) mg/dL Ur Leukocyte Esterase Large H (NEGATIVE) Urine RBC 20-30 H /HPF Urine WBC >100 H (0-5/HPF) /HPF Ur Epithelial Cells Few (NOT SEEN) /HPF Urine Bacteria Moderate H (0-FEW/HPF) /HPF Urine Mucus Few H (NOT SEEN) /LPF Urine Other See note Urine Yeast Few H (NOT SEEN) /HPF Meds: Medications Discontinued Medications Generic Name Dose Route Start Last Admin Trade Name Freq PRN Reason Stop Dose Admin Ciprofloxacin 500 mg 09/01/20 01:58 Ciprofloxacin Hcl PO 02/23/21 01:59 ONETIME ONE Departure - Departure Time of Disposition: 02:05 Disposition: Home, Self-Care 01 Condition: Good Clinical Impression: UTI, Urinary tract infectious disease - Discharge Information *PRESCRIPTION DRUG MONITORING PROGRAM REVIEWED*: No *COPY OF PRESCRIPTION DRUG MONITORING REPORT IN PATIENT SUZY: No Instructions: Urinary Tract Infection, Adult, [id number] Forms: ED Department Discharge Additional Instructions: Drink plenty of water Rx: Ciprofloxacin 1 twice daily as directed Follow-up with your primary care provider for recheck of urine Return to the ER with any worsening of problems Sepsis Event Note (ED) - Evaluation Sepsis Screening Result: No Definite Risk - Focused Exam Vital Signs: Vital Signs Temp Pulse Resp BP Pulse Ox 09/01/20 01:14 97.5 F 88 14 100/69 97 - My Orders Last 24 Hours: My Active Orders 09/01/20 01:37 Bladder Scan [RC] ASDIRECTED 09/01/20 01:40 CULTURE URINE [RM] Stat - Assessment/Plan Last 24 Hours: My Active Orders 09/01/20 01:37 Bladder Scan [RC] ASDIRECTED 09/01/20 01:40 CULTURE URINE [RM] Stat
== END 2020-09-01 02:25 | disposition home or self-care (01) ==
LOC: DL.ED 00:28
DX: N39.0 Urinary tract infection, site not specified (principal)
CPT/HCPCS: 51798; 81001; 87086; 99283-25; A9270-GY

== ENCOUNTER 2020-09-01 03:12 | Emergency (ER) | payer MEDICARE, BC ==
[2020-09-01 03:31] VITALS: BP 132/51; PULSE 88
--- NOTE | 2020-09-01 03:32 | EDM.PDOC ---
ED HPI GENERAL MEDICAL PROBLEM - General Chief Complaint: Genitourinary Problem Stated Complaint: PULLED HIS CATHITER OUT Time Seen by Provider: 09/01/20 03:32 Source of Information: Reports: Patient, Family, RN, RN Notes Reviewed History Limitations: Reports: Altered Mental Status (confusion) - History of Present Illness INITIAL COMMENTS - FREE TEXT/NARRATIVE: This 84-year-old patient presents to ER again, was just discharged proximately an hour and a half ago. When the patient got home he pulled out his May catheter so daughter brought him back in to have May reinserted. Daughter states the patient has had some bouts of confusion over the past few days, likely due to the UTI that we found in his last visit an hour and a half ago. Patient denies any complaints of at this time. Onset: Today, Sudden - Related Data Allergies Allergy/AdvReac Type Severity Reaction Status Date / Time Iodinated Contrast Media Allergy Cannot Verified 09/01/20 01:19 [Iodinated Contrast Media - Remember IV Dye] niacin Allergy Cannot Verified 09/01/20 01:19 Remember Home Meds: Home Meds Metoprolol Succinate [Toprol XL] 150 mg PO DAILY 12/29/14 [History] metFORMIN [Glucophage] 500 mg PO BID 12/29/14 [History] Finasteride [Proscar] 5 mg PO DAILY 03/16/16 [History] Tamsulosin [Flomax] 0.4 mg PO DAILY 03/16/16 [History] Furosemide [Lasix] 40 mg PO DAILY 04/27/18 [History] Nitroglycerin [Nitrostat] 0.4 mg SL ASDIRECTED PRN 04/27/18 [History] Umeclidinium Brm/Vilanterol Tr [Anoro Ellipta 62.5-25 MCG] 1 puff IH DAILY 04/27/18 [History] atorvaSTATin [Lipitor] 40 mg PO DAILY 04/27/18 [History] Digoxin 125 mcg PO DAILY 07/04/18 [History] ramipriL [Ramipril] 2.5 mg PO DAILY 07/04/18 [History] Clopidogrel [Plavix] 75 mg PO DAILY 07/27/18 [History] Apixaban [Eliquis] 2.5 mg PO BID 09/12/19 [History] Omeprazole 20 mg PO DAILY 09/12/19 [History] Past Medical History HEENT History: Reports: Cataract, Impaired Vision Cardiovascular History: Reports: Afib, CAD, High Cholesterol, Hypertension, P acemaker Respiratory History: Reports: SOB Gastrointestinal History: Reports: GERD Genitourinary History: Reports: Chronic Renal Insuffiency, Prostate Disorder, Retention, Urinary, Other (See Below) Other Genitourinary History: bladder spasms Musculoskeletal History: Reports: Fracture, Osteoarthritis Neurological History: Reports: TIA Psychiatric History: Reports: None Endocrine/Metabolic History: Reports: Diabetes, Type II Hematologic History: Reports: None Immunologic History: Reports: None Oncologic (Cancer) History: Reports: Prostate Dermatologic History: Reports: Other (See Below) Other Dermatologic History: actinic keratosis - Infectious Disease History Infectious Disease History: Reports: Chicken Pox, Measles, Mumps, Shingles - Past Surgical History HEENT Surgical History: Reports: Adenoidectomy, Cataract Surgery, Tonsillectomy Cardiovascular Surgical History: Reports: Coronary Artery Bypass GI Surgical History: Reports: None Male Surgical History: Reports: Other (See Below) Other Male Surgeries/Procedures: cystourethroscopy, nephrolithiasis Endocrine Surgical History: Reports: None Neurological Surgical History: Reports: None Musculoskeletal Surgical History: Reports: None Dermatological Surgical History: Reports: None Social & Family History - Family History Family Medical History: No Pertinent Family History - Caffeine Use Caffeine Use: Reports: None Caffeine Use Comment: Drinks lots of coffee - Living Situation & Occupation Occupation: Retired ED ROS GENERAL - Review of Systems Review Of Systems: Comprehensive ROS is negative, except as noted in HPI. ED EXAM, RENAL/ - Physical Exam Exam: See Below Exam Limited By: Altered Mental Status (confusion) General Appearance: Alert, WD/WN, No Apparent Distress Eye Exam: Bilateral Eye: EOMI, Normal Inspection Ears: Normal External Exam, Hearing Grossly Normal Nose: Normal Inspection Throat/Mouth: Normal Inspection, Normal Voice, No Airway Compromise Head: Atraumatic, Normocephalic Neck: Normal Inspection Respiratory/Chest: No Respiratory Distress, Lungs Clear, Normal Breath Sounds, No Accessory Muscle Use Cardiovascular: Normal Peripheral Pulses, Regular Rate, Rhythm, No Edema, No Gallop, No JVD, No Murmur, No Rub GI/Abdominal: Normal Bowel Sounds, Soft, Non-Tender (Male) Exam: Deferred Rectal (Males) Exam: Deferred Back Exam: Normal Inspection, Decreased Range of Motion Extremities: Normal Inspection, Non-Tender, No Pedal Edema, Normal Capillary Refill, Limited Range of Motion Neurological: Alert, Oriented (to place) Psychiatric: Flat Affect Skin Exam: Warm, Dry, Intact, Normal Color, No Rash Lymphatic: No Adenopathy Course - Vital Signs Last Recorded V/S: Last Vital Signs Temp 97.1 F 09/01/20 03:20 Pulse 88 09/01/20 03:20 Resp 16 09/01/20 03:20 BP 132/51 L 09/01/20 03:20 Pulse Ox 100 09/01/20 03:20 Departure - Departure Time of Disposition: 03:41 Disposition: Home, Self-Care 01 Condition: Fair Clinical Impression: Confusion UTI (urinary tract infection) Qualifiers: Urinary tract infection type: acute cystitis Hematuria presence: without hematuria Qualified Code(s): N30.00 - Acute cystitis without hematuria - Discharge Information *PRESCRIPTION DRUG MONITORING PROGRAM REVIEWED*: No *COPY OF PRESCRIPTION DRUG MONITORING REPORT IN PATIENT SUZY: No Forms: ED Department Discharge Sepsis Event Note (ED) - Evaluation Sepsis Screening Result: No Definite Risk - Focused Exam Vital Signs: Vital Signs Temp Pulse Resp BP Pulse Ox 09/01/20 03:20 97.1 F 88 16 132/51 L 100
== END 2020-09-01 03:48 | disposition home or self-care (01) ==
LOC: DL.ED 03:12
DX: N30.00 Acute cystitis without hematuria (principal); R41.0 Disorientation, unspecified; I48.91 Unspecified atrial fibrillation; I25.10 Atherosclerotic heart disease of native coronary artery without angina pectoris; I12.9 Hypertensive chronic kidney disease with stage 1 through stage 4 chronic kidney disease, or unspecified chronic kidney disease; E11.22 Type 2 diabetes mellitus with diabetic chronic kidney disease; N18.9 Chronic kidney disease, unspecified; E78.00 Pure hypercholesterolemia, unspecified; K21.9 Gastro-esophageal reflux disease without esophagitis; Z86.73 Personal history of transient ischemic attack (TIA), and cerebral infarction without residual deficits; Z91.041 Radiographic dye allergy status; Z88.8 Allergy status to other drugs, medicaments and biological substances; Z79.01 Long term (current) use of anticoagulants; Z79.02 Long term (current) use of antithrombotics/antiplatelets; Z79.899 Other long term (current) drug therapy
CPT/HCPCS: 51702; 51798; 81001; 87086; 99283; A9270

== ENCOUNTER 2020-09-03 11:15 | Emergency (ER) | payer MEDICARE, BC ==
[2020-09-03 11:24] VITALS: BP 139/78; PULSE 58
--- NOTE | 2020-09-03 12:12 | EDM.PDOC ---
ED HPI GENERAL MEDICAL PROBLEM - General Chief Complaint: Chest Pain Stated Complaint: CHEST PAINS Time Seen by Provider: 09/03/20 11:45 Source of Information: Reports: Patient History Limitations: Reports: No Limitations - History of Present Illness INITIAL COMMENTS - FREE TEXT/NARRATIVE: This 84 yo male patient reports to the ED due to chest pain. The patient reports his chest pain started today at 1030, but by the time he got to the ED he had no chest pain. The patient's daughter did offer the patient nitroglycerin while he was having chest pain, but the patient declined the medication due to wanting to be seen in the ED. Onset: Today Onset Date: 09/03/20 Onset Time: 10:30 Duration: Resolved Prior to Arrival Location: Reports: Chest Quality: Reports: Sharp Severity: Mild Improves with: Reports: None Worsens with: Reports: None Context: Reports: Other Associated Symptoms: Reports: No Other Symptoms - Related Data Allergies Allergy/AdvReac Type Severity Reaction Status Date / Time Iodinated Contrast Media Allergy Cannot Verified 09/03/20 11:29 [Iodinated Contrast Media - Remember IV Dye] niacin Allergy Cannot Verified 09/03/20 11:29 Remember Home Meds: Home Meds Metoprolol Succinate [Toprol XL] 100 mg PO DAILY 12/29/14 [History] metFORMIN [Glucophage] 500 mg PO BID 12/29/14 [History] Finasteride [Proscar] 5 mg PO DAILY 03/16/16 [History] Tamsulosin [Flomax] 0.4 mg PO DAILY 03/16/16 [History] Furosemide [Lasix] 40 mg PO DAILY PRN 04/27/18 [History] Nitroglycerin [Nitrostat] 0.4 mg SL ASDIRECTED PRN 04/27/18 [History] Umeclidinium Brm/Vilanterol Tr [Anoro Ellipta 62.5-25 MCG] 1 puff IH DAILY 04/27/18 [History] atorvaSTATin [Lipitor] 40 mg PO DAILY 04/27/18 [History] Digoxin 125 mcg PO DAILY 07/04/18 [History] ramipriL [Ramipril] 2.5 mg PO DAILY 07/04/18 [History] Clopidogrel [Plavix] 75 mg PO DAILY 07/27/18 [History] Apixaban [Eliquis] 2.5 mg PO BID 09/12/19 [History] Omeprazole 20 mg PO DAILY 09/12/19 [History] Ciprofloxacin [Ciprofloxacin HCl] 500 mg PO BID 09/03/20 [History] Metoprolol Succinate [Toprol XL 50mg] 50 mg PO DAILY 09/03/20 [History] Past Medical History HEENT History: Reports: Cataract, Impaired Vision Cardiovascular History: Reports: Afib, CAD, High Cholesterol, Hypertension, Pacemaker Respiratory History: Reports: SOB Gastrointestinal History: Reports: GERD Genitourinary History: Reports: Chronic Renal Insuffiency, Prostate Disorder, Retention, Urinary, Other (See Below) Other Genitourinary History: bladder spasms Musculoskeletal History: Reports: Fracture, Osteoarthritis Neurological History: Reports: TIA Psychiatric History: Reports: None Endocrine/Metabolic History: Reports: Diabetes, Type II Hematologic History: Reports: None Immunologic History: Reports: None Oncologic (Cancer) History: Reports: Prostate Dermatologic History: Reports: Other (See Below) Other Dermatologic History: actinic keratosis - Infectious Disease History Infectious Disease History: Reports: Chicken Pox, Measles, Mumps, Shingles - Past Surgical History HEENT Surgical History: Reports: Adenoidectomy, Cataract Surgery, Tonsillectomy Cardiovascular Surgical History: Reports: Coronary Artery Bypass GI Surgical History: Reports: None Male Surgical History: Reports: Other (See Below) Other Male Surgeries/Procedures: cystourethroscopy, nephrolithiasis Endocrine Surgical History: Reports: None Neurological Surgical History: Reports: None Musculoskeletal Surgical History: Reports: None Dermatological Surgical History: Reports: None Social & Family History - Family History Family Medical History: No Pertinent Family History - Tobacco Use Tobacco Use Status *Q: Never Tobacco User Second Hand Smoke Exposure: No - Caffeine Use Caffeine Use: Reports: None Caffeine Use Comment: Drinks lots of coffee - Recreational Drug Use Recreational Drug Use: No - Living Situation & Occupation Occupation: Retired ED ROS GENERAL - Review of Systems Review Of Systems: Comprehensive ROS is negative, except as noted in HPI. ED EXAM, GENERAL - Physical Exam Exam: See Below Exam Limited By: No Limitations General Appearance: Alert, WD/WN, No Apparent Distress Eye Exam: Bilateral Eye: EOMI, Normal Inspection, PERRL Ears: Normal External Exam, Normal Canal, Hearing Grossly Normal, Normal TMs Nose: Normal Inspection, Normal Mucosa, No Blood Throat/Mouth: Normal Inspection, Normal Lips, Normal Teeth, Normal Gums, Normal Oropharynx, Normal Voice, No Airway Compromise Head: Atraumatic, Normocephalic Neck: Normal Inspection, Supple, Non-Tender, Full Range of Motion Respiratory/Chest: No Respiratory Distress, Lungs Clear, Normal Breath Sounds, No Accessory Muscle Use, Chest Non-Tender GI/Abdominal: Normal Bowel Sounds, Soft, Non-Tender, No Organomegaly, No Distention, No Abnormal Bruit, No Mass (Male) Exam: Deferred Rectal (Males) Exam: Deferred Back Exam: Normal Inspection, Full Range of Motion, NT Extremities: Normal Inspection, Normal Range of Motion, Non-Tender, Normal Capillary Refill, No Pedal Edema Neurological: Alert, Oriented, CN II-XII Intact, Normal Cognition, Normal Gait, Normal Reflexes, No Motor/Sensory Deficits Psychiatric: Normal Affect, Normal Mood Skin Exam: Warm, Dry, Intact, Normal Color, No Rash Lymphatic: No Adenopathy Course - Vital Signs Last Recorded V/S: Last Vital Signs Temp 35.8 C L 09/03/20 11:23 Pulse 58 L 09/03/20 11:23 Resp 24 H 09/03/20 11:23 BP 139/78 09/03/20 11:23 Pulse Ox 97 09/03/20 11:23 - Orders/Labs/Meds Orders: Active Orders 24 hr Category Date Time Status EKG Documentation Completion [RC] STAT Care 09/03/20 11:30 Active CULTURE BLOOD [BC] Stat Lab 09/03/20 11:30 Ordered Labs: Laboratory Tests 09/03/20 09/03/20 09/03/20 Range/Units 11:47 11:47 11:47 WBC 8.0 (5.0-10.0) 10^3/uL RBC 4.73 (4.6-6.2) 10^6/uL Hgb 13.4 L (14.0-18.0) g/dL Hct 39.7 L (40.0-54.0) % MCV 83.9 (80-100) fL MCH 28.3 (27.0-34.0) pg MCHC 33.8 (33.0-35.0) g/dL Plt Count 167 (150-450) 10^3/uL Neut % (Auto) 69.6 (42.2-75.2) % Lymph % (Auto) 18.1 L (20.5-50.1) % [place] % (Auto) 10.6 H (2-8) % Eos % (Auto) 1.3 (1.0-3.0) % Baso % (Auto) 0.4 (0.0-1.0) % Sodium 137 (136-145) mmol/L Potassium 3.9 (3.5-5.1) mmol/L Chloride 100 (98-107) mmol/L Carbon Dioxide 25 (21-32) mmol/L Anion Gap 15.9 H (7-13) mEq/L BUN 24 H (7-18) mg/dL Creatinine 1.04 (0.70-1.30) mg/dL Est Cr Clr Drug Dosing 54.95 mL/min Estimated GFR (MDRD) > 60 BUN/Creatinine Ratio 23.1 (No establ ref range) Glucose 170 H (74-99) mg/dL Lactic Acid 1.5 (0.4-2.0) mmol/L Calcium 9.1 (8.5-10.1) mg/dL Total Bilirubin 0.7 (0.2-1.0) mg/dL AST 14 L (15-37) U/L ALT 20 (16-63) U/L Alkaline Phosphatase 141 H (46-116) U/L Troponin I < 0.017 (0.000-0.056) ng/mL Total Protein 7.1 (6.4-8.2) g/dL Albumin 3.5 (3.4-5.0) g/dL Globulin 3.6 Albumin/Globulin Ratio 1.0 Departure - Departure Time of Disposition: 13:01 Disposition: Home, Self-Care 01 Condition: Fair Clinical Impression: Nonspecific chest pain Conjunctivitis Qualifiers: Conjunctivitis type: acute Acute conjunctivitis type: unspecified Laterality: right Qualified Code(s): H10.31 - Unspecified acute conjunctivitis, right eye Instructions: Nonspecific Chest Pain, Adult, [id number], Bacterial Conjunctivitis, Adult, [id number] Forms: ED Department Discharge Care Plan Goals: The patient and family were advised of the examination, lab, EKG and x-ray results during the visit. The patient was discharged with a script for Polytrim to place 1 drop in the right eye 4 times per day for 10 days. If the patient has any additional symptoms or concerns, the patient should either return to the emergency department or visit his primary care facility. Sepsis Event Note (ED) - Evaluation Sepsis Screening Result: No Definite Risk - Focused Exam Vital Signs: Vital Signs Temp Pulse Resp BP Pulse Ox 09/03/20 11:23 35.8 C L 58 L 24 H 139/78 97 - My Orders Last 24 Hours: My Active Orders 09/03/20 11:30 EKG Documentation Completion [RC] STAT CULTURE BLOOD [BC] Stat - Assessment/Plan Last 24 Hours: My Active Orders 09/03/20 11:30 EKG Documentation Completion [RC] STAT CULTURE BLOOD [BC] Stat
[2020-09-03 12:43] LABS: ANION GAP 15.9 mEq/L (7-13); CHLORIDE,CL 100 mmol/L (98-107); SODIUM,NA 137 mmol/L (136-145)
--- NOTE | 2020-09-03 12:58 | CR ---
EXAMINATION: Chest 1V Frontal SEX: Male AGE: 84 years CLINICAL HISTORY: 84-year-old male with chest pain. Comparison exam for August 2020. Interpretation: Old fracture deformity left clavicle and bilateral Hill-Sachs notch like deformity humeral heads. Cardiac pacemaker (leads intact). External ekg monitor leads. Sternotomy wires. Normal cardiac silhouette without pulmonary vascular congestion, cephalization of flow, alveolar edema or dependent pleural effusion. No new lung mass or hilar lymphadenopathy. No focal alveolar lobar consolidation, air bronchograms, or peripheral "groundglass" interstitial lung densities. No pneumothorax or pneumomediastinum. CONCLUSION: No acute new cardiopulmonary abnormality.
== END 2020-09-03 13:23 | disposition home or self-care (01) ==
LOC: DL.ED 11:15
DX: R07.9 Chest pain, unspecified (principal); H10.31 Unspecified acute conjunctivitis, right eye; I48.91 Unspecified atrial fibrillation; I25.10 Atherosclerotic heart disease of native coronary artery without angina pectoris; I12.9 Hypertensive chronic kidney disease with stage 1 through stage 4 chronic kidney disease, or unspecified chronic kidney disease; E11.22 Type 2 diabetes mellitus with diabetic chronic kidney disease; N18.9 Chronic kidney disease, unspecified; Z86.73 Personal history of transient ischemic attack (TIA), and cerebral infarction without residual deficits; Z91.041 Radiographic dye allergy status; Z88.8 Allergy status to other drugs, medicaments and biological substances; Z79.01 Long term (current) use of anticoagulants; Z79.02 Long term (current) use of antithrombotics/antiplatelets; Z79.899 Other long term (current) drug therapy
CPT/HCPCS: 36415; 71045; 80053; 83605; 84484; 85025; 87040; 93005; 99284; 99285-25

== ENCOUNTER 2020-09-12 14:50 | Observation (INO) | payer MEDICARE, BC ==
--- NOTE | 2020-09-12 15:35 | CR ---
PROCEDURE INFORMATION: Exam: XR Right Knee Exam date and time: 09/12/2020 3:23 PM Age: 84 years old Clinical indication: Other: Pain; Additional info: B/l knee pain, lft>rt, no known injury TECHNIQUE: Imaging protocol: XR Right knee. Views: 3 views. COMPARISON: No relevant prior studies available. FINDINGS: Bones/joints: There are mild degenerative changes of the knee joint, predominantly involving the medial joint compartment. There is no evidence of acute fracture. There is no evidence of joint malalignment or dislocation. Sclerotic density noted within the patella. Soft tissues: There are no soft tissue masses or fluid collections. Vasculature: The vasculature demonstrates diffuse mild atherosclerotic calcification. IMPRESSION: 1. No evidence of acute fracture. 2. No evidence of acute dislocation.
--- NOTE | 2020-09-12 15:36 | CR ---
PROCEDURE INFORMATION: Exam: XR Left Knee Exam date and time: 09/12/2020 3:18 PM Age: 84 years old Clinical indication: Other: Pain; Additional info: B/l knee pain, lft>rt, no known injury TECHNIQUE: Imaging protocol: XR Left knee. Views: 3 views. COMPARISON: No relevant prior studies available. FINDINGS: Bones/joints: There are mild degenerative changes of the knee joint, predominantly involving the medial joint compartment. There is no evidence of acute fracture. There is no evidence of joint malalignment or dislocation. Soft tissues: There are no soft tissue masses or fluid collections. IMPRESSION: 1. There are mild degenerative changes of the knee joint, predominantly involving the medial joint compartment. 2. No evidence of acute fracture. 3. No evidence of acute dislocation.
[2020-09-12] MEDS ORDERED: Lidocaine 5% Oint 35.44 GM Tube TOP ONE (15:38)
[2020-09-12] MEDS ORDERED: Acetaminophen/HYDROcodone 325-5 MG Tab PO ONE (15:38)
[2020-09-12] MEDS ORDERED: Sodium Chloride 0.9% 10 ML Syringe FLUSH PRN (17:05)
[2020-09-12 17:44] LABS: ANION GAP 16.4 mEq/L (7-13); CHLORIDE,CL 103 mmol/L (98-107); SODIUM,NA 139 mmol/L (136-145)
--- NOTE | 2020-09-12 17:54 | EDM.PDOC ---
Scribed by Lakeisha Stockton 09/12/20 1527 for Mago Cameron MD ED HPI GENERAL MEDICAL PROBLEM - General Chief Complaint: Lower Extremity Injury/Pain Stated Complaint: JUST DOESNT FEEL GOOD Time Seen by Provider: 09/12/20 15:06 Source of Information: Reports: Patient, Family, RN, RN Notes Reviewed History Limitations: Reports: No Limitations - History of Present Illness INITIAL COMMENTS - FREE TEXT/NARRATIVE: Patient presents to ED by POV with daughter. He presents with reports of bilateral knee pain x 2 days. Patient states pain is worse with movement. It s tarted with the left knee on , 09/10/20, and then today both knees hurt. No known injury. He denies any fall. He denies pain whenever sitting still. Icing at home per daughter, no other treatments. Patient does use cane at home usually. Pt use finished Cipro for catheter associated UTI, and had the Moderna COVID vaccine on 09/09/20. Pt does not want to be "held" or admitted to the hospital, or sent to a skilled nursing. Pt is adamant that he stay in his own home until he dies. Pt daughter is aware, and has ensured 30/01 in home care for the pt. Daughter is concerned that her other 2 siblings would like to have the pt placed in a skilled nursing. Onset: Gradual Duration: Getting Worse Location: Reports: Upper Extremity, Right, Lower Extremity, Right Quality: Reports: Ache Severity: Moderate Improves with: Reports: None Worsens with: Reports: None Associated Symptoms: Reports: No Other Symptoms - Related Data Allergies Allergy/AdvReac Type Severity Reaction Status Date / Time Iodinated Contrast Media Allergy Cannot Verified 09/12/20 15:09 [Iodinated Contrast Media - Remember IV Dye] niacin Allergy Cannot Verified 09/12/20 15:09 Remember Home Meds: Home Meds Metoprolol Succinate [Toprol XL] 100 mg PO DAILY 12/29/14 [History] metFORMIN [Glucophage] 500 mg PO BIDMEALS 12/29/14 [History] Tamsulosin [Flomax] 0.4 mg PO BID 03/16/16 [History] Furosemide [Lasix] 40 mg PO DAILY PRN 04/27/18 [History] Nitroglycerin [Nitrostat] 0.4 mg SL ASDIRECTED PRN 04/27/18 [History] Umeclidinium Brm/Vilanterol Tr [Anoro Ellipta 62.5-25 MCG] 1 puff IH DAILY 04/27/18 [History] atorvaSTATin [Lipitor] 20 mg PO BEDTIME 04/27/18 [History] Digoxin 125 mcg PO DAILY 07/04/18 [History] ramipriL [Ramipril] 5 mg PO DAILY 07/04/18 [History] Clopidogrel [Plavix] 75 mg PO DAILY 07/27/18 [History] Apixaban [Eliquis] 2.5 mg PO BID 09/12/19 [History] Omeprazole 20 mg PO DAILY 09/12/19 [History] Metoprolol Succinate [Toprol XL 50mg] 50 mg PO DAILY 09/03/20 [History] Acetaminophen 325 mg PO BEDTIME 09/12/20 [History] Calcium Carb/Vitamin D3/Vit K1 [Viactiv 650 mg-12.5 Mcg Chew] 1 each PO DAILY 09/12/20 [History] Calcium Carbonate/Vitamin D3 [Calcium 600-Vit D3 400 Tablet] 1 each PO BID 09/12/20 [History] Fluconazole [Diflucan] 200 mg PO DAILY 09/12/20 [History] Megestrol [Megace] 20 mg PO BID 09/12/20 [History] Polymyxin B/Trimethoprim [PolyTrim Ophth Soln] 1 drop EYERT QID 09/12/20 [History] Past Medical History HEENT History: Reports: Cataract, Impaired Vision Cardiovascular History: Reports: Afib, CAD, High Cholesterol, Hypertension, Pacemaker Respiratory History: Reports: SOB Gastrointestinal History: Reports: GERD Genitourinary History: Reports: Chronic Renal Insuffiency, Prostate Disorder, Retention, Urinary, Other (See Below) Other Genitourinary History: bladder spasms Musculoskeletal History: Reports: Fracture, Osteoarthritis Neurological History: Reports: TIA Psychiatric History: Reports: None Endocrine/Metabolic History: Reports: Diabetes, Type II Hematologic History: Reports: None Immunologic History: Reports: None Oncologic (Cancer) History: Reports: Prostate Dermatologic History: Reports: Other (See Below) Other Dermatologic History: actinic keratosis - Infectious Disease History Infectious Disease History: Reports: Chicken Pox, Measles, Mumps, Shingles - Past Surgical History HEENT Surgical History: Reports: Adenoidectomy, Cataract Surgery, Tonsillectomy Cardiovascular Surgical History: Reports: Coronary Artery Bypass GI Surgical History: Reports: None Male Surgical History: Reports: Other (See Below) Other Male Surgeries/Procedures: cystourethroscopy, nephrolithiasis Endocrine Surgical History: Reports: None Neurological Surgical History: Reports: None Musculoskeletal Surgical History: Reports: None Dermatological Surgical History: Reports: None Social & Family History - Family History Family Medical History: No Pertinent Family History - Caffeine Use Caffeine Use: Reports: None Caffeine Use Comment: Drinks lots of coffee - Living Situation & Occupation Occupation: Retired ED ROS GENERAL - Review of Systems Review Of Systems: Comprehensive ROS is negative, except as noted in HPI. ED EXAM, GENERAL - Physical Exam Exam: See Below Exam Limited By: No Limitations General Appearance: Alert, No Apparent Distress, Other (Frail elderly male) Throat/Mouth: Normal Inspection, Normal Voice, No Airway Compromise Head: Atraumatic, Normocephalic Neck: Normal Inspection Respiratory/Chest: No Respiratory Distress, Lungs Clear Cardiovascular: Regular Rate, Rhythm, No Edema GI/Abdominal: Normal Bowel Sounds, Soft, Non-Tender (Male) Exam: Other (Indwelling araujo catheter with clear yellow urine) Extremities: Non-Tender, No Pedal Edema, Limited Range of Motion (Left knee flexion to 75 degrees with onset of pain, full extension. Right knee with full ROM without pain.). No: Joint Swelling, Anil's Sign, Increased Warmth, Mot tled, Pallor, Redness Neurological: Alert, Oriented, Confused (Mild (at baseline per daughter)), Other (Generalized weakness/deconditioning) Psychiatric: Normal Affect, Normal Mood Skin Exam: Warm, Dry, Normal Color, No Rash #1 Interpretation EKG Date: 09/12/20 Time: 17:18 Rhythm: Other (SR, with rate demand paced intermittently) Rate (Beats/Min): 69 Jameson: LAD-Left Jameson Deviation P-Wave: Present QRS: Other (LAFB) ST-T: Normal QT: Normal Comparison: No Change Course - Vital Signs Last Recorded V/S: Last Vital Signs Temp 96.9 F 09/12/20 15:07 Pulse 88 09/12/20 15:07 Resp 18 09/12/20 15:07 BP 128/54 L 09/12/20 15:07 Pulse Ox 100 09/12/20 15:07 - Orders/Labs/Meds Orders: Active Orders 24 hr Category Date Time Status EKG 12 Lead [EKG Documentation Completion] [RC] STAT Care 09/12/20 17:06 Active Peripheral IV Care [RC] . DIRECTED Care 09/12/20 17:06 Active CULTURE URINE [RM] Stat Lab 09/12/20 17:12 Received Sodium Chloride 0.9% [Saline Flush] Med 09/12/20 17:05 Active 10 ml FLUSH ASDIRECTED PRN Peripheral IV Insertion Adult [OM.PC] Stat Oth 09/12/20 17:06 Ordered Medication Orders Sodium Chloride (Saline Flush) 10 ml FLUSH ASDIRECTED PRN PRN Reason: Keep Vein Open Labs: Laboratory Tests 09/12/20 09/12/20 09/12/20 Range/Units 17:12 17:17 17:17 WBC 8.9 (5.0-10.0) 10^3/uL RBC 4.55 L (4.6-6.2) 10^6/uL Hgb 12.6 L (14.0-18.0) g/dL Hct 38.5 L (40.0-54.0) % MCV 84.6 (80-100) fL MCH 27.7 (27.0-34.0) pg MCHC 32.7 L (33.0-35.0) g/dL Plt Count 165 (150-450) 10^3/uL Neut % (Auto) 72.7 (42.2-75.2) % Lymph % (Auto) 13.9 L (20.5-50.1) % Ceiba % (Auto) 11.2 H (2-8) % Eos % (Auto) 2.0 (1.0-3.0) % Baso % (Auto) 0.2 (0.0-1.0) % Sodium 139 (136-145) mmol/L Potassium 4.4 (3.5-5.1) mmol/L Chloride 103 (98-107) mmol/L Carbon Dioxide 24 (21-32) mmol/L Anion Gap 16.4 H (7-13) mEq/L BUN 20 H (7-18) mg/dL Creatinine 0.94 (0.70-1.30) mg/dL Est Cr Clr Drug Dosing 62.19 mL/min Estimated GFR (MDRD) > 60 BUN/Creatinine Ratio 21.3 (No establ ref range) Glucose 171 H (74-99) mg/dL Calcium 8.9 (8.5-10.1) mg/dL Total Bilirubin 0.4 (0.2-1.0) mg/dL AST 14 L (15-37) U/L ALT 23 (16-63) U/L Alkaline Phosphatase 148 H (46-116) U/L Troponin I < 0.017 (0.000-0.056) ng/mL Total Protein 6.8 (6.4-8.2) g/dL Albumin 3.2 L (3.4-5.0) g/dL Globulin 3.6 Albumin/Globulin Ratio 0.89 Urine Color Yellow (YELLOW) Urine Appearance Cloudy (CLEAR) Urine pH 5.5 (5.0-9.0) Ur Specific [place] 1.025 (1.005-1.030) Urine Protein 100 H (NEGATIVE) Urine Glucose (UA) Negative (NEGATIVE) Urine Ketones Negative (NEGATIVE) Urine Occult Blood Moderate H (NEGATIVE) Urine Nitrite Negative (NEGATIVE) Urine Bilirubin Negative (NEGATIVE) Urine Urobilinogen 0.2 (0.2-1.0) mg/dL Ur Leukocyte Esterase Large H (NEGATIVE) Urine RBC 5-10 H /HPF Urine WBC 75-100 H (0-5/HPF) /HPF Ur Epithelial Cells Rare (NOT SEEN) /HPF Urine Bacteria Few (0-FEW/HPF) /HPF Urine Mucus Few H (NOT SEEN) /LPF Urine Yeast Many H (NOT SEEN) /HPF Meds: Medications Generic Name Dose Route Start Last Admin Trade Name Freq PRN Reason Stop Dose Admin Sodium Chloride 10 ml 09/12/20 17:05 Saline Flush FLUSH ASDIRECTED PRN Keep Vein Open Discontinued Medications Generic Name Dose Route Start Last Admin Trade Name Freq PRN Reason Stop Dose Admin Hydrocodone Bitart/Acetaminophen 1 tab 09/12/20 15:38 09/12/20 15:55 [place] 325-5 Mg PO 09/12/20 15:39 1 tab ONETIME ONE Administration Lidocaine HCl 30 gm 09/12/20 15:38 09/12/20 15:54 Lidocaine 5% TOP 09/12/20 15:39 1 applic ONETIME ONE Administration - Radiology Interpretation Free Text/Narrative:: [facility] Final Radiology Report Call: [phone] assistance Online chat: [email or web address] Name: JASON MAYFIELD Age: 84Years M Date: 09/12/2020 SSN: -- : 1935 Study: CR KNEE 3V LT Requesting Physician: MAGO CAMERON Images: 3 Addl Studies: Provided Clinical History: B/L knee pain, Lft>Rt, no known injury Contrast: Contrast Medium: Contrast Amount: Contrast Method: CONFIDENTIALITY STATEMENT This report is intended only for use by the referring physician, and only in accordance with law. If you received this in error, call [phone]. Page 1 of 1 PROCEDURE INFORMATION: Exam: XR Left Knee Exam date and time: 09/12/2020 3:18 PM Age: 84 years old Clinical indication: Other: Pain; Additional info: B/l knee pain, lft>rt, no known injury TECHNIQUE: Imaging protocol: XR Left knee. Views: 3 views. COMPARISON: No relevant prior studies available. FINDINGS: Bones/joints: There are mild degenerative changes of the knee joint, predominantly involving the medial joint compartment. There is no evidence of acute fracture. There is no evidence of joint malalignment or dislocation. Soft tissues: There are no soft tissue masses or fluid collections. IMPRESSION: 1. There are mild degenerative changes of the knee joint, predominantly involving the medial joint compartment. 2. No evidence of acute fracture. 3. No evidence of acute dislocation. Thank you for allowing us to participate in the care of your patient. Dictated and Authenticated by: Papi Arriola DO 09/12/2020 3:36 PM Central Time ([place] & [place]) [facility] Final Radiology Report Call: [phone] assistance Online chat: [email or web address] Name: JASON MAYFIELD Age: 84Years M Date: 09/12/2020 SSN: -- : 1935 Study: CR KNEE 3V RT Requesting Physician: MAGO CAMERON Images: 3 Addl Studies: Provided Clinical History: B/L knee pain, Lft>Rt, no known injury Contrast: Contrast Medium: Contrast Amount: Contrast Method: CONFIDENTIALITY STATEMENT This report is intended only for use by the referring physician, and only in accordance with law. If you received this in error, call [phone]. Page 1 of 1 PROCEDURE INFORMATION: Exam: XR Right Knee Exam date and time: 09/12/2020 3:23 PM Age: 84 years old Clinical indication: Other: Pain; Additional info: B/l knee pain, lft>rt, no known injury TECHNIQUE: Imaging protocol: XR Right knee. Views: 3 views. COMPARISON: No relevant prior studies available. FINDINGS: Bones/joints: There are mild degenerative changes of the knee joint, predominantly involving the medial joint compartment. There is no evidence of acute fracture. There is no evidence of joint malalignment or dislocation. Sclerotic density noted within the patella. Soft tissues: There are no soft tissue masses or fluid collections. Vasculature: The vasculature demonstrates diffuse mild atherosclerotic calcification. IMPRESSION: 1. No evidence of acute fracture. 2. No evidence of acute dislocation. Thank you for allowing us to participate in the care of your patient. Dictated and Authenticated by: Papi Arriola DO 09/12/2020 3:35 PM Central Time ([place] & [place]) - Re-Assessments/Exams Free Text/Narrative Re-Assessment/Exam: 09/12/20 17:13 Pt is too weak to stand without 2 person assist. He was not able to walk initially. After topical lidocaine to the knees and oral Vicodin the pt was able to stand, still requiring full 2 person assist, and he walked less than 5ft. However, required a walker, one person assist, and was unsteady. He tried to say the weakness and disability were due strictly to the knee pain, but finally admitted he is simply too weak to be at home, even with a caregiver. Departure - Departure Time of Disposition: 18:41 (admit to Dr. Clark) Disposition: Refer to Observation Condition: Fair Clinical Impression: Yeast cystitis, Generalized weakness Knee pain, bilateral Qualifiers: Chronicity: unspecified Qualified Code(s): M25.561 - Pain in right knee; M25.562 - Pain in left knee Vaccine reaction Qualifiers: Encounter type: initial encounter Qualified Code(s): T50.Z95A - Adverse effect of other vaccines and biological substances, initial encounter - Discharge Information *PRESCRIPTION DRUG MONITORING PROGRAM REVIEWED*: Not Applicable *COPY OF PRESCRIPTION DRUG MONITORING REPORT IN PATIENT SUZY: Not Applicable Forms: ED Department Discharge Sepsis Event Note (ED) - Focused Exam Vital Signs: Vital Signs Temp Pulse Resp BP Pulse Ox 09/12/20 15:07 96.9 F 88 18 128/54 L 100 - My Orders Last 24 Hours: My Active Orders 09/12/20 17:05 Sodium Chloride 0.9% [Saline Flush] 10 ml FLUSH ASDIRECTED PRN 09/12/20 17:06 EKG 12 Lead [EKG Documentation Completion] [RC] STAT Peripheral IV Care [RC] . DIRECTED Peripheral IV Insertion Adult [OM.PC] Stat 09/12/20 17:12 CULTURE URINE [RM] Stat - Assessment/Plan Last 24 Hours: My Active Orders 09/12/20 17:05 Sodium Chloride 0.9% [Saline Flush] 10 ml FLUSH ASDIRECTED PRN 09/12/20 17:06 EKG 12 Lead [EKG Documentation Completion] [RC] STAT Peripheral IV Care [RC] . DIRECTED Peripheral IV Insertion Adult [OM.PC] Stat 09/12/20 17:12 CULTURE URINE [RM] Stat I have read and agree with the documentation that has been completed regarding this visit. By signing this record, I attest that the documentation was completed in my physical presence and is an accurate record of the encounter.
[2020-09-12] MEDS ORDERED: Apixaban 5 MG Tab PO SCH (22:00)
[2020-09-12] MEDS: Acetaminophen 325 MG Tab PO SCH (22:11)
--- NOTE | 2020-09-12 22:11 | PCM.HP ---
H&P History of Present Illness - General Date of Service: 09/12/20 Admit Problem/Dx: Admission Diagnosis/Problem Admission Diagnosis/Problem Weakness - History of Present Illness Initial Comments - Free Text/Narative: 84M w/ pmh afib, CAD, HL, HT, GERD, CKD, prostate ca w/ chronic araujo, OA, TIA, DM2, kidney stones p/w weakness and b/l knee pain. Pt lives home w/ 24h [employer]. He has been increasingly debilitated but is adamant about remaining in his own home. He is cared for by an aide and his daughter. He has recently been started on fluconazole for angie in his urine. Pt received the 2nd dose of Moderna COVID19 vaccine 2 days ago. He has since become profoundly weak. He basically requires total care. He is c/o b/l knee pain. There is no fever. Daughter was unable to get him out of bed and pt was brought to the hospital. ER evaluation is largely unremarkable apart from pyuria. - Related Data Allergies/Adverse Reactions: Allergies Allergy/AdvReac Type Severity Reaction Status Date / Time Iodinated Contrast Media Allergy Cannot Verified 09/12/20 15:09 [Iodinated Contrast Media - Remember IV Dye] niacin Allergy Cannot Verified 09/12/20 15:09 Remember Home Medications: Home Meds Metoprolol Succinate [Toprol XL] 100 mg PO DAILY 12/29/14 [History] metFORMIN [Glucophage] 500 mg PO BIDMEALS 12/29/14 [History] Tamsulosin [Flomax] 0.4 mg PO BID 03/16/16 [History] Furosemide [Lasix] 40 mg PO DAILY PRN 04/27/18 [History] Nitroglycerin [Nitrostat] 0.4 mg SL ASDIRECTED PRN 04/27/18 [History] Umeclidinium Brm/Vilanterol Tr [Anoro Ellipta 62.5-25 MCG] 1 puff IH DAILY 04/27/18 [History] atorvaSTATin [Lipitor] 20 mg PO BEDTIME 04/27/18 [History] Digoxin 125 mcg PO DAILY 07/04/18 [History] ramipriL [Ramipril] 5 mg PO DAILY 07/04/18 [History] Clopidogrel [Plavix] 75 mg PO DAILY 07/27/18 [History] Apixaban [Eliquis] 2.5 mg PO BID 09/12/19 [History] Omeprazole 20 mg PO DAILY 09/12/19 [History] Metoprolol Succinate [Toprol XL 50mg] 50 mg PO DAILY 09/03/20 [History] Acetaminophen 325 mg PO BEDTIME 09/12/20 [History] Calcium Carb/Vitamin D3/Vit K1 [Viactiv 650 mg-12.5 Mcg Chew] 1 each PO DAILY 09/12/20 [History] Calcium Carbonate/Vitamin D3 [Calcium 600-Vit D3 400 Tablet] 1 each PO BID 09/12/20 [History] Fluconazole [Diflucan] 200 mg PO DAILY 09/12/20 [History] Megestrol [Megace] 20 mg PO BID 09/12/20 [History] Polymyxin B/Trimethoprim [PolyTrim Ophth Soln] 1 drop EYERT QID 09/12/20 [Hist ory] Past Medical History HEENT History: Reports: Cataract, Impaired Vision Cardiovascular History: Reports: Afib, CAD, High Cholesterol, Hypertension, Pacemaker Respiratory History: Reports: SOB Gastrointestinal History: Reports: GERD Genitourinary History: Reports: Chronic Renal Insuffiency, Prostate Disorder, Retention, Urinary, Other (See Below) Other Genitourinary History: bladder spasms, indwelling catheter Musculoskeletal History: Reports: Fracture, Osteoarthritis Neurological History: Reports: TIA Psychiatric History: Reports: None Endocrine/Metabolic History: Reports: Diabetes, Type II Hematologic History: Reports: None Immunologic History: Reports: None Oncologic (Cancer) History: Reports: Prostate, Other (See Below) Other Oncologic History: 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 Dermatologic History: Reports: Other (See Below) Other Dermatologic History: actinic keratosis - Infectious Disease History Infectious Disease History: Reports: Chicken Pox, Measles, Mumps, Shingles - Past Surgical History HEENT Surgical History: Reports: Adenoidectomy, Cataract Surgery, Tonsillectomy Cardiovascular Surgical History: Reports: Coronary Artery Bypass GI Surgical History: Reports: None Male Surgical History: Reports: Other (See Below) Other Male Surgeries/Procedures: cystourethroscopy, nephrolithiasis Endocrine Surgical History: Reports: None Neurological Surgical History: Reports: None Musculoskeletal Surgical History: Reports: None Dermatological Surgical History: Reports: None Social & Family History - Family History Family Medical History: No Pertinent Family History - Tobacco Use Tobacco Use Status *Q: Never Tobacco User Second Hand Smoke Exposure: No - Caffeine Use Caffeine Use: Reports: None Caffeine Use Comment: Drinks lots of coffee - Recreational Drug Use Recreational Drug Use: No - Living Situation & Occupation Occupation: Retired H&P Review of Systems - Review of Systems: Review Of Systems: See Below Free Text/Narrative: Negative for 14 systems except as specifically noted above. Additionally daughter reports pt w/ chronic cough. Exam - Exam Exam: See Below - Vital Signs Vital Signs: Last Vital Signs Temp 97.9 F 09/12/20 19:25 Pulse 70 09/12/20 19:25 Resp 18 09/12/20 19:25 BP 112/42 L 09/12/20 19:25 Pulse Ox 99 09/12/20 19:25 Weight: 165 lb 11.2 oz - Exam Quality Assessment: No: Supplemental Oxygen General: Alert, Other (somnolent) HEENT: Conjunctiva Clear Neck: Supple Lungs: Clear to Auscultation, Normal Respiratory Effort Cardiovascular: Regular Rate, Irregular Rhythm GI/Abdominal Exam: Normal Bowel Sounds, Soft, Non-Tender, No Distention (Male) Exam: Other (normal external inspection, araujo in place, no discharge around araujo) Extremities: Other (atrophic lower extremities) Skin: Warm, Dry, Intact Neuro Extensive - Mental Status: Disorientation to Time Psychiatric: No: Agitated - Patient Data Lab Results Last 24 hrs: Laboratory Results - last 24 hr 09/12/20 09/12/20 09/12/20 Range/Units 17:12 17:17 17:17 WBC 8.9 (5.0-10.0) 10^3/uL RBC 4.55 L (4.6-6.2) 10^6/uL Hgb 12.6 L (14.0-18.0) g/dL Hct 38.5 L (40.0-54.0) % MCV 84.6 (80-100) fL MCH 27.7 (27.0-34.0) pg MCHC 32.7 L (33.0-35.0) g/dL Plt Count 165 (150-450) 10^3/uL Neut % (Auto) 72.7 (42.2-75.2) % Lymph % (Auto) 13.9 L (20.5-50.1) % [place] % (Auto) 11.2 H (2-8) % Eos % (Auto) 2.0 (1.0-3.0) % Baso % (Auto) 0.2 (0.0-1.0) % Sodium 139 (136-145) mmol/L Potassium 4.4 (3.5-5.1) mmol/L Chloride 103 (98-107) mmol/L Carbon Dioxide 24 (21-32) mmol/L Anion Gap 16.4 H (7-13) mEq/L BUN 20 H (7-18) mg/dL Creatinine 0.94 (0.70-1.30) mg/dL Est Cr Clr Drug Dosing 62.19 mL/min Estimated GFR (MDRD) > 60 BUN/Creatinine Ratio 21.3 (No establ ref range) Glucose 171 H (74-99) mg/dL Calcium 8.9 (8.5-10.1) mg/dL Total Bilirubin 0.4 (0.2-1.0) mg/dL AST 14 L (15-37) U/L ALT 23 (16-63) U/L Alkaline Phosphatase 148 H (46-116) U/L Troponin I < 0.017 (0.000-0.056) ng/mL Total Protein 6.8 (6.4-8.2) g/dL Albumin 3.2 L (3.4-5.0) g/dL Globulin 3.6 Albumin/Globulin Ratio 0.89 Urine Color Yellow (YELLOW) Urine Appearance Cloudy (CLEAR) Urine pH 5.5 (5.0-9.0) Ur Specific [place] 1.025 (1.005-1.030) Urine Protein 100 H (NEGATIVE) Urine Glucose (UA) Negative (NEGATIVE) Urine Ketones Negative (NEGATIVE) Urine Occult Blood Moderate H (NEGATIVE) Urine Nitrite Negative (NEGATIVE) Urine Bilirubin Negative (NEGATIVE) Urine Urobilinogen 0.2 (0.2-1.0) mg/dL Ur Leukocyte Esterase Large H (NEGATIVE) Urine RBC 5-10 H /HPF Urine WBC 75-100 H (0-5/HPF) /HPF Ur Epithelial Cells Rare (NOT SEEN) /HPF Urine Bacteria Few (0-FEW/HPF) /HPF Urine Mucus Few H (NOT SEEN) /LPF Urine Yeast Many H (NOT SEEN) /HPF SARS CoV-2 RNA Rapid ROCKY (NEGATIVE) 03/06/21 Range/Units 18:54 WBC (5.0-10.0) 10^3/uL RBC (4.6-6.2) 10^6/uL Hgb (14.0-18.0) g/dL Hct (40.0-54.0) % MCV (80-100) fL MCH (27.0-34.0) pg MCHC (33.0-35.0) g/dL Plt Count (150-450) 10^3/uL Neut % (Auto) (42.2-75.2) % Lymph % (Auto) (20.5-50.1) % [place] % (Auto) (2-8) % Eos % (Auto) (1.0-3.0) % Baso % (Auto) (0.0-1.0) % Sodium (136-145) mmol/L Potassium (3.5-5.1) mmol/L Chloride (98-107) mmol/L Carbon Dioxide (21-32) mmol/L Anion Gap (7-13) mEq/L BUN (7-18) mg/dL Creatinine (0.70-1.30) mg/dL Est Cr Clr Drug Dosing mL/min Estimated GFR (MDRD) BUN/Creatinine Ratio (No establ ref range) Glucose (74-99) mg/dL Calcium (8.5-10.1) mg/dL Total Bilirubin (0.2-1.0) mg/dL AST (15-37) U/L ALT (16-63) U/L Alkaline Phosphatase (46-116) U/L Troponin I (0.000-0.056) ng/mL Total Protein (6.4-8.2) g/dL Albumin (3.4-5.0) g/dL Globulin Albumin/Globulin Ratio Urine Color (YELLOW) Urine Appearance (CLEAR) Urine pH (5.0-9.0) Ur Specific [place] (1.005-1.030) Urine Protein (NEGATIVE) Urine Glucose (UA) (NEGATIVE) Urine Ketones (NEGATIVE) Urine Occult Blood (NEGATIVE) Urine Nitrite (NEGATIVE) Urine Bilirubin (NEGATIVE) Urine Urobilinogen (0.2-1.0) mg/dL Ur Leukocyte Esterase (NEGATIVE) Urine RBC /HPF Urine WBC (0-5/HPF) /HPF Ur Epithelial Cells (NOT SEEN) /HPF Urine Bacteria (0-FEW/HPF) /HPF Urine Mucus (NOT SEEN) /LPF Urine Yeast (NOT SEEN) /HPF SARS CoV-2 RNA Rapid ROCKY Negative (NEGATIVE) Result Diagrams: 09/12/20 17:17 09/12/20 17:17 Problem List Initiated/Reviewed/Updated: No Orders Last 24hrs: Active Orders 24 hr Category Date Time Status Admission Diagnosis [ADT] Routine ADT 09/12/20 18:41 Ordered Admission Status [Patient Status] [ADT] Routine ADT 09/12/20 18:41 Active Patient Status [ADT] Routine ADT 09/12/20 18:53 Active Communication Order [RC] ROUTINE Care 09/12/20 22:00 Active Oxygen Therapy [RC] PRN Care 09/12/20 18:53 Active Peripheral IV Care [RC] . DIRECTED Care 09/12/20 17:06 Active VTE/DVT Education [RC] PER UNIT ROUTINE Care 09/12/20 18:53 Active Vital Signs [RC] Q4H Care 09/12/20 18:53 Active PT Evaluation and Treatment [CONS] Routine Cons 09/12/20 18:53 Active Regular Diet [DIET] Diet 09/12/20 Breakfast Active Chest 1V Frontal [CR] AM Exams 09/13/20 05:11 Ordered BASIC METABOLIC PANEL,BMP [CHEM] AM Lab 09/13/20 05:11 Ordered CBC WITH AUTO DIFF [HEME] AM Lab 09/13/20 05:11 Ordered CULTURE URINE [RM] Stat Lab 09/12/20 17:12 Received Acetaminophen [TylenoL] Med 09/12/20 21:00 Active 975 mg PO Q8H Apixaban [Eliquis] Med 09/12/20 22:00 Ordered 2.5 mg PO BID Clopidogrel [Plavix] Med 09/13/20 09:00 Ordered 75 mg PO DAILY Digoxin [Lanoxin] Med 09/13/20 09:00 Ordered 125 mcg PO DAILY Megestrol [Megace] Med 09/13/20 09:00 Ordered 20 mg PO BID Metoprolol Succinate [Toprol XL] Med 09/13/20 09:00 Ordered 100 mg PO DAILY Metoprolol Succinate [Toprol XL] Med 09/13/20 09:00 Ordered 50 mg PO DAILY Omeprazole Med 09/13/20 09:00 Ordered 20 mg PO DAILY Ramipril Med 09/13/20 09:00 Ordered 5 mg PO DAILY Sodium Chloride 0.9% [Saline Flush] Med 09/12/20 17:05 Active 10 ml FLUSH ASDIRECTED PRN Tamsulosin [Flomax] Med 09/13/20 09:00 Ordered 0.4 mg PO BID Umeclidinium Brm/Vilanterol Tr [Anoro Ellipta 62.5-25 Med 09/13/20 09:00 Ordered MCG] 1 puff IH DAILY atorvaSTATin [Lipitor] Med 09/13/20 21:00 Ordered 20 mg PO BEDTIME Peripheral IV Insertion Adult [OM.PC] Stat Oth 09/12/20 17:06 Ordered Resuscitation Status Routine Resus Stat 09/12/20 18:53 Ordered Medication Orders Acetaminophen (Tylenol) 975 mg PO Q8H [facility] Apixaban (Eliquis) 2.5 mg PO BID [facility] Clopidogrel Bisulfate (Plavix) 75 mg PO DAILY [facility] Digoxin (Lanoxin) 125 mcg PO DAILY [facility] Metoprolol Succinate (Toprol Xl) 50 mg PO DAILY [facility] Non-Formulary Medication (Atorvastatin [Lipitor]) 20 mg PO BEDTIME [facility] Non-Formulary Medication (Megestrol [Megace]) 20 mg PO BID [facility] Non-Formulary Medication (Metoprolol Succinate [Toprol Xl]) 100 mg PO DAILY [facility] Non-Formulary Medication (Umeclidinium Brm/Vilanterol Tr [Anoro Ellipta 62.5-25 Mcg]) 1 puff IH DAILY [facility] Non-Formulary Medication (Ramipril) 5 mg PO DAILY [facility] Omeprazole (Omeprazole) 20 mg PO DAILY [facility] Sodium Chloride (Saline Flush) 10 ml FLUSH ASDIRECTED PRN PRN Reason: Keep Vein Open Tamsulosin HCl (Flomax) 0.4 mg PO BID [facility] Assessment/Plan Comment:: #weakness and b/l knee pain - X-rays and physical exam of knees is unremarkable - he likely has arthritis but there is no acute inflammatory process - it is possible the symptoms are due to his 2nd Moderna shot two days ago - this is not uncommon - will treat symptomatically #pyuria and candiduria - this is almost surely a colonizer which is quite common w/ chronic indwelling araujo cath - pt is non toxic and w/ no evidence of sepsis and no stigmata of candidemia - this does not require treatment - RN instructed to replace araujo for a fresh one #afib / CAD / HL / HT / GERD / CKD / prostate ca / OA / TIA / DM2 - hold metformin - c/w all other home meds PPX - on eliquis Full code
[2020-09-12] MEDS: APIXABAN 5 MG PO SCH (22:13)
[2020-09-13] MEDS: Acetaminophen 325 MG Tab PO SCH ×3 (05:59→20:54)
[2020-09-13 06:09] LABS: ANION GAP 15.1 mEq/L (7-13); CHLORIDE,CL 104 mmol/L (98-107); SODIUM,NA 142 mmol/L (136-145)
--- NOTE | 2020-09-13 08:36 | CR ---
PROCEDURE INFORMATION: Exam: XR Chest Exam date and time: 09/13/2020 7:49 AM Age: 84 years old Clinical indication: Cough TECHNIQUE: Imaging protocol: XR of the chest Views: 1 view. COMPARISON: CR Chest 1V Frontal 08/13/2020 6:31 AM FINDINGS: Lungs: Clear lungs. Pleural spaces: No pneumothorax. No sizable pleural effusion. Heart/Mediastinum: No cardiomegaly. Bones/joints: Sternotomy. Soft tissues: Left chest wall pacemaker with leads in the right atrium and right ventricle. IMPRESSION: Clear lungs.
[2020-09-13] MEDS ORDERED: Metoprolol Succinate 50 MG Tab.ER PO SCH (09:00)
[2020-09-13] MEDS ORDERED: Digoxin 125 MCG Tab PO SCH (09:00)
[2020-09-13] MEDS ORDERED: Omeprazole 20 MG Cap.CR PO SCH (09:00)
[2020-09-13] MEDS ORDERED: Ramipril 5 MG Cap PO SCH (09:00)
[2020-09-13] MEDS ORDERED: Tamsulosin 0.4 MG Cap.ER PO SCH (09:00)
[2020-09-13] MEDS ORDERED: Clopidogrel 75 MG Tab PO SCH (09:00)
[2020-09-13] MEDS ORDERED: MEGESTROL 20 MG PO SCH (09:00)
[2020-09-13] MEDS ORDERED: Omeprazole 20 MG Cap.CR**PT OWN MED PO SCH (09:00)
[2020-09-13] MEDS ORDERED: Non-Formulary Medication 1 Each (Metoprolol Succinate [Toprol Xl] 100 MG) PO SCH (09:00)
[2020-09-13] MEDS: METOPROLOL SUCCINATE 50 MG PO SCH (10:20)
[2020-09-13] MEDS: Omeprazole 20 MG Cap.CR**PT OWN MED PO SCH (10:20)
[2020-09-13] MEDS: CLOPIDOGREL 75 MG PO SCH (10:22)
[2020-09-13] MEDS: DIGOXIN 125 MCG PO SCH (10:22)
[2020-09-13] MEDS: TAMSULOSIN 0.4 MG PO SCH ×2 (10:23→20:53)
[2020-09-13] MEDS: TOPROL 100 MG PO SCH (10:23)
[2020-09-13] MEDS: MEGESTROL 20 MG PO SCH ×2 (10:23→20:57)
[2020-09-13] MEDS: RAMIPRIL 5 MG PO SCH (10:24)
[2020-09-13] MEDS: Umeclidinium Brm/Vilanterol Tr [Anoro Ellipta 62.5-25 Mcg**OWN MED INH SCH ×2 (10:25)
[2020-09-13] MEDS: APIXABAN 5 MG PO SCH ×2 (10:25→20:53)
--- NOTE | 2020-09-13 12:05 | PCM.PN ---
- General Info Date of Service: 09/13/20 Admission Dx/Problem (Free Text): Appears improved. Good mental status. No further knee pain. - Review of Systems Systems Review Comment:: Negative for 14 systems except as specifically noted above - Patient Data Vitals - Most Recent: Last Vital Signs Temp 97.4 F 09/13/20 07:42 Pulse 65 09/13/20 10:22 Resp 16 09/13/20 07:42 BP 125/56 L 09/13/20 10:24 Pulse Ox 97 09/13/20 07:42 Weight - Most Recent: 162 lb I&O - Last 24 Hours: Intake & Output 09/12/20 09/13/20 09/13/20 22:59 06:59 14:59 Intake Total 225 250 Output Total 225 300 Balance 0 -50 Lab Results Last 24 Hours: Laboratory Results - last 24 hr 09/12/20 09/12/20 09/12/20 Range/Units 17:12 17:17 17:17 WBC 8.9 (5.0-10.0) 10^3/uL RBC 4.55 L (4.6-6.2) 10^6/uL Hgb 12.6 L (14.0-18.0) g/dL Hct 38.5 L (40.0-54.0) % MCV 84.6 (80-100) fL MCH 27.7 (27.0-34.0) pg MCHC 32.7 L (33.0-35.0) g/dL Plt Count 165 (150-450) 10^3/uL Neut % (Auto) 72.7 (42.2-75.2) % Lymph % (Auto) 13.9 L (20.5-50.1) % Mcpherson % (Auto) 11.2 H (2-8) % Eos % (Auto) 2.0 (1.0-3.0) % Baso % (Auto) 0.2 (0.0-1.0) % Sodium 139 (136-145) mmol/L Potassium 4.4 (3.5-5.1) mmol/L Chloride 103 (98-107) mmol/L Carbon Dioxide 24 (21-32) mmol/L Anion Gap 16.4 H (7-13) mEq/L BUN 20 H (7-18) mg/dL Creatinine 0.94 (0.70-1.30) mg/dL Est Cr Clr Drug Dosing 62.19 mL/min Estimated GFR (MDRD) > 60 BUN/Creatinine Ratio 21.3 (No establ ref range) Glucose 171 H (74-99) mg/dL POC Glucose (83-110) mg/dl Calcium 8.9 (8.5-10.1) mg/dL Total Bilirubin 0.4 (0.2-1.0) mg/dL AST 14 L (15-37) U/L ALT 23 (16-63) U/L Alkaline Phosphatase 148 H (46-116) U/L Troponin I < 0.017 (0.000-0.056) ng/mL Total Protein 6.8 (6.4-8.2) g/dL Albumin 3.2 L (3.4-5.0) g/dL Globulin 3.6 Albumin/Globulin Ratio 0.89 Urine Color Yellow (YELLOW) Urine Appearance Cloudy (CLEAR) Urine pH 5.5 (5.0-9.0) Ur Specific [place] 1.025 (1.005-1.030) Urine Protein 100 H (NEGATIVE) Urine Glucose (UA) Negative (NEGATIVE) Urine Ketones Negative (NEGATIVE) Urine Occult Blood Moderate H (NEGATIVE) Urine Nitrite Negative (NEGATIVE) Urine Bilirubin Negative (NEGATIVE) Urine Urobilinogen 0.2 (0.2-1.0) mg/dL Ur Leukocyte Esterase Large H (NEGATIVE) Urine RBC 5-10 H /HPF Urine WBC 75-100 H (0-5/HPF) /HPF Ur Epithelial Cells Rare (NOT SEEN) /HPF Urine Bacteria Few (0-FEW/HPF) /HPF Urine Mucus Few H (NOT SEEN) /LPF Urine Yeast Many H (NOT SEEN) /HPF SARS CoV-2 RNA Rapid ROCKY (NEGATIVE) 09/12/20 09/13/20 09/13/20 Range/Units 18:54 05:15 05:15 WBC 7.7 (5.0-10.0) 10^3/uL RBC 4.22 L (4.6-6.2) 10^6/uL Hgb 11.8 L (14.0-18.0) g/dL Hct 36.0 L (40.0-54.0) % MCV 85.3 (80-100) fL MCH 28.0 (27.0-34.0) pg MCHC 32.8 L (33.0-35.0) g/dL Plt Count 163 (150-450) 10^3/uL Neut % (Auto) 68.3 (42.2-75.2) % Lymph % (Auto) 18.1 L (20.5-50.1) % Mcpherson % (Auto) 10.1 H (2-8) % Eos % (Auto) 3.2 H (1.0-3.0) % Baso % (Auto) 0.3 (0.0-1.0) % Sodium 142 (136-145) mmol/L Potassium 4.1 (3.5-5.1) mmol/L Chloride 104 (98-107) mmol/L Carbon Dioxide 27 (21-32) mmol/L Anion Gap 15.1 H (7-13) mEq/L BUN 16 (7-18) mg/dL Creatinine 0.78 (0.70-1.30) mg/dL Est Cr Clr Drug Dosing 73.27 mL/min Estimated GFR (MDRD) > 60 BUN/Creatinine Ratio (No establ ref range) Glucose 101 H (74-99) mg/dL POC Glucose (83-110) mg/dl Calcium 8.7 (8.5-10.1) mg/dL Total Bilirubin (0.2-1.0) mg/dL AST (15-37) U/L ALT (16-63) U/L Alkaline Phosphatase (46-116) U/L Troponin I (0.000-0.056) ng/mL Total Protein (6.4-8.2) g/dL Albumin (3.4-5.0) g/dL Globulin Albumin/Globulin Ratio Urine Color (YELLOW) Urine Appearance (CLEAR) Urine pH (5.0-9.0) Ur Specific [place] (1.005-1.030) Urine Protein (NEGATIVE) Urine Glucose (UA) (NEGATIVE) Urine Ketones (NEGATIVE) Urine Occult Blood (NEGATIVE) Urine Nitrite (NEGATIVE) Urine Bilirubin (NEGATIVE) Urine Urobilinogen (0.2-1.0) mg/dL Ur Leukocyte Esterase (NEGATIVE) Urine RBC /HPF Urine WBC (0-5/HPF) /HPF Ur Epithelial Cells (NOT SEEN) /HPF Urine Bacteria (0-FEW/HPF) /HPF Urine Mucus (NOT SEEN) /LPF Urine Yeast (NOT SEEN) /HPF SARS CoV-2 RNA Rapid ROCKY Negative (NEGATIVE) 09/13/20 Range/Units 07:53 WBC (5.0-10.0) 10^3/uL RBC (4.6-6.2) 10^6/uL Hgb (14.0-18.0) g/dL Hct (40.0-54.0) % MCV (80-100) fL MCH (27.0-34.0) pg MCHC (33.0-35.0) g/dL Plt Count (150-450) 10^3/uL Neut % (Auto) (42.2-75.2) % Lymph % (Auto) (20.5-50.1) % Mcpherson % (Auto) (2-8) % Eos % (Auto) (1.0-3.0) % Baso % (Auto) (0.0-1.0) % Sodium (136-145) mmol/L Potassium (3.5-5.1) mmol/L Chloride (98-107) mmol/L Carbon Dioxide (21-32) mmol/L Anion Gap (7-13) mEq/L BUN (7-18) mg/dL Creatinine (0.70-1.30) mg/dL Est Cr Clr Drug Dosing mL/min Estimated GFR (MDRD) BUN/Creatinine Ratio (No establ ref range) Glucose (74-99) mg/dL POC Glucose 103 (83-110) mg/dl Calcium (8.5-10.1) mg/dL Total Bilirubin (0.2-1.0) mg/dL AST (15-37) U/L ALT (16-63) U/L Alkaline Phosphatase (46-116) U/L Troponin I (0.000-0.056) ng/mL Total Protein (6.4-8.2) g/dL Albumin (3.4-5.0) g/dL Globulin Albumin/Globulin Ratio Urine Color (YELLOW) Urine Appearance (CLEAR) Urine pH (5.0-9.0) Ur Specific [place] (1.005-1.030) Urine Protein (NEGATIVE) Urine Glucose (UA) (NEGATIVE) Urine Ketones (NEGATIVE) Urine Occult Blood (NEGATIVE) Urine Nitrite (NEGATIVE) Urine Bilirubin (NEGATIVE) Urine Urobilinogen (0.2-1.0) mg/dL Ur Leukocyte Esterase (NEGATIVE) Urine RBC /HPF Urine WBC (0-5/HPF) /HPF Ur Epithelial Cells (NOT SEEN) /HPF Urine Bacteria (0-FEW/HPF) /HPF Urine Mucus (NOT SEEN) /LPF Urine Yeast (NOT SEEN) /HPF SARS CoV-2 RNA Rapid ROCKY (NEGATIVE) Med Orders - Current: Current Medications Acetaminophen (Tylenol) 975 mg PO Q8H [facility] Last Admin: 09/13/20 05:59 Dose: 975 mg Documented by: Apixaban (Eliquis) 2.5 mg PO BID [facility] Last Admin: 09/13/20 10:25 Dose: 2.5 mg Documented by: Atorvastatin Calcium (Lipitor) 20 mg PO BEDTIME [facility] Clopidogrel Bisulfate (Plavix) 75 mg PO DAILY [facility] Last Admin: 09/13/20 10:22 Dose: 75 mg Documented by: Digoxin (Lanoxin) 125 mcg PO DAILY [facility] Last Admin: 09/13/20 10:22 Dose: 125 mcg Documented by: Metoprolol Succinate (Toprol Xl) 50 mg PO DAILY [facility] Last Admin: 09/13/20 10:20 Dose: 50 mg Documented by: Umeclidinium Brm/Vilanterol Tr [Anoro Ellipta 62.5-25 Mcg Own Med 1 puff INH DAILY [facility] Last Admin: 09/13/20 10:25 Dose: Not Given Documented by: Omeprazole (Omeprazole) 20 mg PO ACBREAKFAST [facility] Last Admin: 09/13/20 10:20 Dose: 20 mg Documented by: Toprol Xl 100 MgPt (Own Med) 1 each PO DAILY [facility] Last Admin: 09/13/20 10:23 Dose: 1 each Documented by: Megace 20 Mg TabPt (Own Med) 1 each PO BID [facility] Last Admin: 09/13/20 10:23 Dose: 1 each Documented by: Ramipril (Altace) 5 mg PO DAILY [facility] Last Admin: 09/13/20 10:24 Dose: 5 mg Documented by: Sodium Chloride (Saline Flush) 10 ml FLUSH ASDIRECTED PRN PRN Reason: Keep Vein Open Tamsulosin HCl (Flomax) 0.4 mg PO BID [facility] Last Admin: 09/13/20 10:23 Dose: 0.4 mg Documented by: Discontinued Medications Hydrocodone Bitart/Acetaminophen ([place] 325-5 Mg) 1 tab PO ONETIME ONE Stop: 09/12/20 15:39 Last Admin: 09/12/20 15:55 Dose: 1 tab Documented by: Clopidogrel Bisulfate (Plavix) 75 mg PO DAILY [facility] Digoxin (Lanoxin) 125 mcg PO DAILY [facility] Lidocaine HCl (Lidocaine 5%) 30 gm TOP ONETIME ONE Stop: 09/12/20 15:39 Last Admin: 09/12/20 15:54 Dose: 1 applic Documented by: Metoprolol Succinate (Toprol Xl) 50 mg PO DAILY [facility] Omeprazole (Omeprazole) 20 mg PO DAILY [facility] Omeprazole (Omeprazole) 20 mg PO DAILY [facility] Last Admin: 09/13/20 10:20 Dose: Not Given Documented by: Ramipril (Altace) 5 mg PO DAILY [facility] Tamsulosin HCl (Flomax) 0.4 mg PO BID [facility] - Exam Quality Assessment: No: Supplemental Oxygen General: Alert, Oriented, Cooperative HEENT: Pupils Equal Neck: Supple Lungs: Clear to Auscultation, Normal Respiratory Effort Cardiovascular: Regular Rate, Regular Rhythm, No Murmurs GI/Abdominal Exam: Normal Bowel Sounds, Soft, Non-Tender, No Distention (Male) Exam: Other (araujo in place) Back Exam: Normal Inspection Extremities: No Pedal Edema, Other (atrophic LE b/l) Skin: Warm, Dry Neurological: No New Focal Deficit Psy/Mental Status: Alert, Normal Affect, Normal Mood - Patient Data Lab Results Last 24 hrs: Laboratory Results - last 24 hr 09/12/20 09/12/20 09/12/20 Range/Units 17:12 17:17 17:17 WBC 8.9 (5.0-10.0) 10^3/uL RBC 4.55 L (4.6-6.2) 10^6/uL Hgb 12.6 L (14.0-18.0) g/dL Hct 38.5 L (40.0-54.0) % MCV 84.6 (80-100) fL MCH 27.7 (27.0-34.0) pg MCHC 32.7 L (33.0-35.0) g/dL Plt Count 165 (150-450) 10^3/uL Neut % (Auto) 72.7 (42.2-75.2) % Lymph % (Auto) 13.9 L (20.5-50.1) % Mcpherson % (Auto) 11.2 H (2-8) % Eos % (Auto) 2.0 (1.0-3.0) % Baso % (Auto) 0.2 (0.0-1.0) % Sodium 139 (136-145) mmol/L Potassium 4.4 (3.5-5.1) mmol/L Chloride 103 (98-107) mmol/L Carbon Dioxide 24 (21-32) mmol/L Anion Gap 16.4 H (7-13) mEq/L BUN 20 H (7-18) mg/dL Creatinine 0.94 (0.70-1.30) mg/dL Est Cr Clr Drug Dosing 62.19 mL/min Estimated GFR (MDRD) > 60 BUN/Creatinine Ratio 21.3 (No establ ref range) Glucose 171 H (74-99) mg/dL POC Glucose (83-110) mg/dl Calcium 8.9 (8.5-10.1) mg/dL Total Bilirubin 0.4 (0.2-1.0) mg/dL AST 14 L (15-37) U/L ALT 23 (16-63) U/L Alkaline Phosphatase 148 H (46-116) U/L Troponin I < 0.017 (0.000-0.056) ng/mL Total Protein 6.8 (6.4-8.2) g/dL Albumin 3.2 L (3.4-5.0) g/dL Globulin 3.6 Albumin/Globulin Ratio 0.89 Urine Color Yellow (YELLOW) Urine Appearance Cloudy (CLEAR) Urine pH 5.5 (5.0-9.0) Ur Specific [place] 1.025 (1.005-1.030) Urine Protein 100 H (NEGATIVE) Urine Glucose (UA) Negative (NEGATIVE) Urine Ketones Negative (NEGATIVE) Urine Occult Blood Moderate H (NEGATIVE) Urine Nitrite Negative (NEGATIVE) Urine Bilirubin Negative (NEGATIVE) Urine Urobilinogen 0.2 (0.2-1.0) mg/dL Ur Leukocyte Esterase Large H (NEGATIVE) Urine RBC 5-10 H /HPF Urine WBC 75-100 H (0-5/HPF) /HPF Ur Epithelial Cells Rare (NOT SEEN) /HPF Urine Bacteria Few (0-FEW/HPF) /HPF Urine Mucus Few H (NOT SEEN) /LPF Urine Yeast Many H (NOT SEEN) /HPF SARS CoV-2 RNA Rapid ROCKY (NEGATIVE) 09/12/20 09/13/20 09/13/20 Range/Units 18:54 05:15 05:15 WBC 7.7 (5.0-10.0) 10^3/uL RBC 4.22 L (4.6-6.2) 10^6/uL Hgb 11.8 L (14.0-18.0) g/dL Hct 36.0 L (40.0-54.0) % MCV 85.3 (80-100) fL MCH 28.0 (27.0-34.0) pg MCHC 32.8 L (33.0-35.0) g/dL Plt Count 163 (150-450) 10^3/uL Neut % (Auto) 68.3 (42.2-75.2) % Lymph % (Auto) 18.1 L (20.5-50.1) % Mcpherson % (Auto) 10.1 H (2-8) % Eos % (Auto) 3.2 H (1.0-3.0) % Baso % (Auto) 0.3 (0.0-1.0) % Sodium 142 (136-145) mmol/L Potassium 4.1 (3.5-5.1) mmol/L Chloride 104 (98-107) mmol/L Carbon Dioxide 27 (21-32) mmol/L Anion Gap 15.1 H (7-13) mEq/L BUN 16 (7-18) mg/dL Creatinine 0.78 (0.70-1.30) mg/dL Est Cr Clr Drug Dosing 73.27 mL/min Estimated GFR (MDRD) > 60 BUN/Creatinine Ratio (No establ ref range) Glucose 101 H (74-99) mg/dL POC Glucose (83-110) mg/dl Calcium 8.7 (8.5-10.1) mg/dL Total Bilirubin (0.2-1.0) mg/dL AST (15-37) U/L ALT (16-63) U/L Alkaline Phosphatase (46-116) U/L Troponin I (0.000-0.056) ng/mL Total Protein (6.4-8.2) g/dL Albumin (3.4-5.0) g/dL Globulin Albumin/Globulin Ratio Urine Color (YELLOW) Urine Appearance (CLEAR) Urine pH (5.0-9.0) Ur Specific [place] (1.005-1.030) Urine Protein (NEGATIVE) Urine Glucose (UA) (NEGATIVE) Urine Ketones (NEGATIVE) Urine Occult Blood (NEGATIVE) Urine Nitrite (NEGATIVE) Urine Bilirubin (NEGATIVE) Urine Urobilinogen (0.2-1.0) mg/dL Ur Leukocyte Esterase (NEGATIVE) Urine RBC /HPF Urine WBC (0-5/HPF) /HPF Ur Epithelial Cells (NOT SEEN) /HPF Urine Bacteria (0-FEW/HPF) /HPF Urine Mucus (NOT SEEN) /LPF Urine Yeast (NOT SEEN) /HPF SARS CoV-2 RNA Rapid ROCKY Negative (NEGATIVE) 09/13/20 Range/Units 07:53 WBC (5.0-10.0) 10^3/uL RBC (4.6-6.2) 10^6/uL Hgb (14.0-18.0) g/dL Hct (40.0-54.0) % MCV (80-100) fL MCH (27.0-34.0) pg MCHC (33.0-35.0) g/dL Plt Count (150-450) 10^3/uL Neut % (Auto) (42.2-75.2) % Lymph % (Auto) (20.5-50.1) % Mcpherson % (Auto) (2-8) % Eos % (Auto) (1.0-3.0) % Baso % (Auto) (0.0-1.0) % Sodium (136-145) mmol/L Potassium (3.5-5.1) mmol/L Chloride (98-107) mmol/L Carbon Dioxide (21-32) mmol/L Anion Gap (7-13) mEq/L BUN (7-18) mg/dL Creatinine (0.70-1.30) mg/dL Est Cr Clr Drug Dosing mL/min Estimated GFR (MDRD) BUN/Creatinine Ratio (No establ ref range) Glucose (74-99) mg/dL POC Glucose 103 (83-110) mg/dl Calcium (8.5-10.1) mg/dL Total Bilirubin (0.2-1.0) mg/dL AST (15-37) U/L ALT (16-63) U/L Alkaline Phosphatase (46-116) U/L Troponin I (0.000-0.056) ng/mL Total Protein (6.4-8.2) g/dL Albumin (3.4-5.0) g/dL Globulin Albumin/Globulin Ratio Urine Color (YELLOW) Urine Appearance (CLEAR) Urine pH (5.0-9.0) Ur Specific [place] (1.005-1.030) Urine Protein (NEGATIVE) Urine Glucose (UA) (NEGATIVE) Urine Ketones (NEGATIVE) Urine Occult Blood (NEGATIVE) Urine Nitrite (NEGATIVE) Urine Bilirubin (NEGATIVE) Urine Urobilinogen (0.2-1.0) mg/dL Ur Leukocyte Esterase (NEGATIVE) Urine RBC /HPF Urine WBC (0-5/HPF) /HPF Ur Epithelial Cells (NOT SEEN) /HPF Urine Bacteria (0-FEW/HPF) /HPF Urine Mucus (NOT SEEN) /LPF Urine Yeast (NOT SEEN) /HPF SARS CoV-2 RNA Rapid ROCKY (NEGATIVE) Result Diagrams: 09/13/20 05:15 09/13/20 05:15 Sepsis Event Note - Evaluation Sepsis Screening Result: No Definite Risk - Focused Exam Vital Signs: Vital Signs Temp Pulse Pulse Resp BP BP BP 09/13/20 10:24 125/56 L 09/13/20 10:22 65 09/13/20 10:20 65 125/56 L 09/13/20 07:42 97.4 F 65 16 125/56 L 09/13/20 03:00 97.7 F 70 16 126/40 L Pulse Ox 09/13/20 10:24 09/13/20 10:22 09/13/20 10:20 09/13/20 07:42 97 09/13/20 03:00 97 - Problem List Review Problem List Initiated/Reviewed/Updated: No - My Orders Last 24 Hours: My Active Orders 09/12/20 18:53 Patient Status [ADT] Routine Oxygen Therapy [RC] .PRN VTE/DVT Education [RC] Vital Signs [RC] 00,04,08,12,16,20 PT Evaluation and Treatment [CONS] Routine Resuscitation Status Routine 09/12/20 21:00 Acetaminophen [TylenoL] 975 mg PO Q8H 03/06/21 22:15 Apixaban [Eliquis] 2.5 mg PO BID 09/13/20 Breakfast Consistent Carbohydrate Diet [DIET] 09/13/20 09:00 Clopidogrel [Plavix] 75 mg PO DAILY Digoxin [Lanoxin] 125 mcg PO DAILY Metoprolol Succinate [Toprol XL] 50 mg PO DAILY Patient's Own Medication [Ptom] 1 each PO BID Patient's Own Medication [Ptom] 1 each PO DAILY Tamsulosin [Flomax] 0.4 mg PO BID Umeclidinium Brm/Vilanterol Tr [Anoro Ellipta 62.5-25 MCG] 1 puff INH DAILY ramipriL [Altace] 5 mg PO DAILY 09/13/20 09:22 Dietary Supplements [RC] BIDAC 09/13/20 10:00 Omeprazole 20 mg PO ACBREAKFAST 09/13/20 10:29 Up With Assistance [RC] ASDIRECTED 09/13/20 21:00 atorvaSTATin [Lipitor] 20 mg PO BEDTIME - Plan Plan:: #weakness and b/l knee pain - X-rays and physical exam of knees is unremarkable - he likely has arthritis but there is no acute inflammatory process - it is possible the symptoms are due to his 2nd Moderna shot two days ago - improved overnight w/ essentially no other intervention apart from high dose tylenol - PT/SW eval tomorrow #pyuria and candiduria - this is almost surely a colonizer which is quite common w/ chronic indwelling araujo cath - pt is non toxic and w/ no evidence of sepsis and no stigmata of candidemia - this does not require treatment - RN instructed to replace araujo for a fresh one #afib / CAD / HL / HT / GERD / CKD / prostate ca / OA / TIA / DM2 - hold metformin - c/w all other home meds PPX - on eliquis Full code daughter updated at bedside
[2020-09-14] MEDS: Omeprazole 20 MG Cap.CR**PT OWN MED PO SCH (05:35)
[2020-09-14] MEDS: Acetaminophen 325 MG Tab PO SCH ×2 (05:35→14:08)
[2020-09-14 10:06] VITALS: BP 129/55
[2020-09-14] MEDS: RAMIPRIL 5 MG PO SCH (10:08)
[2020-09-14] MEDS: APIXABAN 5 MG PO SCH (10:11)
[2020-09-14] MEDS: TAMSULOSIN 0.4 MG PO SCH (10:12)
[2020-09-14] MEDS: DIGOXIN 125 MCG PO SCH (10:12)
[2020-09-14] MEDS: CLOPIDOGREL 75 MG PO SCH (10:13)
[2020-09-14] MEDS: TOPROL 100 MG PO SCH (10:15)
[2020-09-14] MEDS: METOPROLOL SUCCINATE 50 MG PO SCH (10:17)
[2020-09-14] MEDS: MEGESTROL 20 MG PO SCH (10:31)
[2020-09-14 10:33] VITALS: PULSE 70
[2020-09-14] MEDS: Umeclidinium Brm/Vilanterol Tr [Anoro Ellipta 62.5-25 Mcg**OWN MED INH SCH (12:10)
[2020-09-14] MEDS ORDERED: Polymyxin B/Trimethoprim 10 ML Bottle EYERT SCH (13:00)
--- NOTE | 2020-09-14 15:12 | PCM.DCSUM1 ---
Discharge Summary - Hospital Course Free Text/Narrative:: 84M w/ pmh afib, CAD, HL, HT, GERD, CKD, prostate ca w/ chronic araujo, OA, TIA, DM2, kidney stones p/w weakness and b/l knee pain. Pt lives home w/ 24h [employer]. He has been increasingly debilitated but is adamant about remaining in his own home. He is cared for by an aide and his daughter. He has recently been started on fluconazole for angie in his urine. Pt received the 2nd dose of Moderna COVID19 vaccine 2 days ago. He has since become profoundly weak. He basically requires total care. He is c/o b/l knee pain. There is no fever. Daughter was unable to get him out of bed and pt was brought to the hospital. ER evaluation is largely unremarkable apart from pyuria. Pt improved essentially w/o intervention. His symptoms were likely related to his 2nd dose of Moderna COVID19 vaccine. His araujo was changed for fresh one in light of yeast colonization. This does not require anti-fungal therapy. Pyuria and candiduria in chronically catheterized patients w/ absence of clinical stigmata of infection do not warrant treatment. Diagnosis: Stroke: No - Discharge Data Discharge Date: 09/14/20 Discharge Disposition: Home, W Home Health Agency 06 Condition: Good - Referral to Home Health Date of Face to Face Encounter: 09/14/20 Reason for Homebound Status: debility and deconditioning 2/2 prostat ca Primary Care Physician: PCP Unobtainable Skilled Need: VS monitoring, PT for deconditioning, araujo catheter management and monitoring - Patient Summary/Data Consults: Consultations 09/12/20 18:53 PT Evaluation and Treatment [CONS] Routine - Discharge Plan *PRESCRIPTION DRUG MONITORING PROGRAM REVIEWED*: Not Applicable *COPY OF PRESCRIPTION DRUG MONITORING REPORT IN PATIENT SUZY: Not Applicable Home Medications: Home Meds Metoprolol Succinate [Toprol XL] 100 mg PO DAILY 12/29/14 [History] metFORMIN [Glucophage] 500 mg PO BIDMEALS 12/29/14 [History] Tamsulosin [Flomax] 0.4 mg PO BID 03/16/16 [History] Furosemide [Lasix] 40 mg PO DAILY PRN 04/27/18 [History] Nitroglycerin [Nitrostat] 0.4 mg SL ASDIRECTED PRN 04/27/18 [History] Umeclidinium Brm/Vilanterol Tr [Anoro Ellipta 62.5-25 MCG] 1 puff IH DAILY 04/27/18 [History] atorvaSTATin [Lipitor] 20 mg PO BEDTIME 04/27/18 [History] Digoxin 125 mcg PO DAILY 07/04/18 [History] ramipriL [Ramipril] 5 mg PO DAILY 07/04/18 [History] Clopidogrel [Plavix] 75 mg PO DAILY 07/27/18 [History] Apixaban [Eliquis] 2.5 mg PO BID 09/12/19 [History] Omeprazole 20 mg PO DAILY 09/12/19 [History] Metoprolol Succinate [Toprol XL 50mg] 50 mg PO DAILY 09/03/20 [History] Acetaminophen 325 mg PO BEDTIME 09/12/20 [History] Calcium Carb/Vitamin D3/Vit K1 [Viactiv 650 mg-12.5 Mcg Chew] 1 each PO BID 09/12/20 [History] Calcium Carbonate/Vitamin D3 [Calcium 600-Vit D3 400 Tablet] 1 each PO BID 09/12/20 [History] Megestrol [Megace] 20 mg PO BID 09/12/20 [History] Polymyxin B/Trimethoprim [PolyTrim Ophth Soln] 1 drop EYERT QID 09/12/20 [History] Patient Handouts: Urinary Tract Infection, Adult, [id number] Referrals: Katherine Montoya NP [Ordering Only Provider] - - Discharge Summary/Plan Comment DC Time >30 min.: Yes (40 min) - General Info Date of Service: 09/14/20 - Patient Data Vitals - Most Recent: Last Vital Signs Temp 98.6 F 09/14/20 08:00 Pulse 70 09/14/20 10:17 Resp 16 09/14/20 08:00 BP 129/55 L 09/14/20 10:17 Pulse Ox 98 09/14/20 08:00 Weight - Most Recent: 162 lb I&O - Last 24 hours: Intake & Output 09/14/20 09/14/20 09/14/20 06:59 14:59 22:59 Intake Total 500 1000 Output Total 1350 450 Balance -850 550 SADA Results - Last 24 hrs: Microbiology 09/12/20 17:12 Urine Culture - Final Urine, Araujo Cath (Indwelling) YEAST Med Orders - Current: Current Medications Acetaminophen (Tylenol) 975 mg PO Q8H [facility] Last Admin: 09/14/20 14:08 Dose: 975 mg Documented by: Apixaban (Eliquis) 2.5 mg PO BID [facility] Last Admin: 09/14/20 10:11 Dose: 2.5 mg Documented by: Atorvastatin Calcium (Lipitor) 20 mg PO BEDTIME [facility] Last Admin: 09/13/20 20:52 Dose: 20 mg Documented by: Clopidogrel Bisulfate (Plavix) 75 mg PO DAILY [facility] Last Admin: 09/14/20 10:13 Dose: 75 mg Documented by: Digoxin (Lanoxin) 125 mcg PO DAILY [facility] Last Admin: 09/14/20 10:12 Dose: 125 mcg Documented by: Metoprolol Succinate (Toprol Xl) 50 mg PO DAILY [facility] Last Admin: 09/14/20 10:17 Dose: 50 mg Documented by: Umeclidinium Brm/Vilanterol Tr [Anoro Ellipta 62.5-25 Mcg Own Med 1 puff INH DAILY [facility] Last Admin: 09/14/20 12:10 Dose: Not Given Documented by: Omeprazole (Omeprazole) 20 mg PO ACBREAKFAST [facility] Last Admin: 09/14/20 05:35 Dose: 20 mg Documented by: Toprol Xl 100 MgPt (Own Med) 1 each PO DAILY [facility] Last Admin: 09/14/20 10:15 Dose: 1 each Documented by: Megace 20 Mg TabPt (Own Med) 1 each PO BID [facility] Last Admin: 09/14/20 10:31 Dose: 1 each Documented by: Polymyxin/Trimethoprim Sulfate (Polytrim Ophth Soln) 0 ml EYERT QID [facility] Last Admin: 09/14/20 14:07 Dose: 1 drop Documented by: Ramipril (Altace) 5 mg PO DAILY [facility] Last Admin: 09/14/20 10:08 Dose: 5 mg Documented by: Sodium Chloride (Saline Flush) 10 ml FLUSH ASDIRECTED PRN PRN Reason: Keep Vein Open Tamsulosin HCl (Flomax) 0.4 mg PO BID [facility] Last Admin: 09/14/20 10:12 Dose: 0.4 mg Documented by: Discontinued Medications Hydrocodone Bitart/Acetaminophen ([place] 325-5 Mg) 1 tab PO ONETIME ONE Stop: 09/12/20 15:39 Last Admin: 09/12/20 15:55 Dose: 1 tab Documented by: Clopidogrel Bisulfate (Plavix) 75 mg PO DAILY [facility] Digoxin (Lanoxin) 125 mcg PO DAILY [facility] Lidocaine HCl (Lidocaine 5%) 30 gm TOP ONETIME ONE Stop: 09/12/20 15:39 Last Admin: 09/12/20 15:54 Dose: 1 applic Documented by: Metoprolol Succinate (Toprol Xl) 50 mg PO DAILY [facility] Omeprazole (Omeprazole) 20 mg PO DAILY [facility] Omeprazole (Omeprazole) 20 mg PO DAILY [facility] Last Admin: 09/13/20 10:20 Dose: Not Given Documented by: Ramipril (Altace) 5 mg PO DAILY [facility] Tamsulosin HCl (Flomax) 0.4 mg PO BID [facility] - Exam Quality Assessment: Denies: Supplemental Oxygen General: Reports: Alert, Oriented, Cooperative HEENT: Reports: Pupils Reactive Neck: Reports: Supple Lungs: Reports: Clear to Auscultation, Normal Respiratory Effort Cardiovascular: Reports: Regular Rate, Regular Rhythm, No Murmurs GI/Abdominal Exam: Normal Bowel Sounds, Soft, Non-Tender, No Distention (Male) Exam: Other (araujo in place / no discharge / non tender bladder) Extremities: No Pedal Edema Skin: Reports: Warm, Dry Neurological: Reports: No New Focal Deficit Psy/Mental Status: Reports: Alert, Normal Affect, Normal Mood
== END 2020-09-14 15:40 | disposition home health service (06) ==
LOC: DL.ED 14:50 → DL.MS 18:41
PROVIDERS: ADMIT Internal Medicine; ATTEND Internal Medicine
DX: R53.1 Weakness (principal); M25.561 Pain in right knee; M25.562 Pain in left knee; I48.91 Unspecified atrial fibrillation; I25.10 Atherosclerotic heart disease of native coronary artery without angina pectoris; I10 Essential (primary) hypertension; I12.9 Hypertensive chronic kidney disease with stage 1 through stage 4 chronic kidney disease, or unspecified chronic kidney disease; N18.9 Chronic kidney disease, unspecified; E11.22 Type 2 diabetes mellitus with diabetic chronic kidney disease; E78.00 Pure hypercholesterolemia, unspecified; R82.81 Pyuria; Z20.822 Contact with and (suspected) exposure to COVID-19; Z86.73 Personal history of transient ischemic attack (TIA), and cerebral infarction without residual deficits; Z91.041 Radiographic dye allergy status; Z88.8 Allergy status to other drugs, medicaments and biological substances; Z79.899 Other long term (current) drug therapy
CPT/HCPCS: 36415; 51702; 71045; 73562; 80048; 80053; 81001; 82962; 84484; 85025; 87086; 93005; 97162; A9270; U0002; 93010; 99217; 99220; 99225; 99284; 99284-25; G0378

== ENCOUNTER 2021-01-29 09:07 | Emergency (ER) | payer MEDICARE, BC ==
[2021-01-29] MEDS ORDERED: Lidocaine 2% Jelly 10 ML Urojet MUCMEM ONE (10:47)
[2021-01-29 11:45] VITALS: BP 147/73; PULSE 78
--- NOTE | 2021-01-29 11:52 | EDM.PDOC ---
ED HPI GENERAL MEDICAL PROBLEM - General Stated Complaint: CATHETER PROBLEMS, SAID GO IN Time Seen by Provider: 01/29/21 11:40 Source of Information: Reports: Patient History Limitations: Reports: No Limitations - History of Present Illness INITIAL COMMENTS - FREE TEXT/NARRATIVE: This 85 yo male patient reports to the ED with increased pressure in his lower abdomen and no urine output from his catheter. The patient did have home health come to the home yesterday and flushed his catheter, but he has not had any urine output today. Onset: Today Duration: Constant, Getting Worse Location: Reports: Abdomen Quality: Reports: Pressure Severity: Moderate Improves with: Reports: None Worsens with: Reports: None Bladder Pain Score (Numeric/FACES): 8 - Related Data Allergies Allergy/AdvReac Type Severity Reaction Status Date / Time Iodinated Contrast Media Allergy Cannot Verified 09/12/20 15:09 [Iodinated Contrast Media - Remember IV Dye] niacin Allergy Cannot Verified 09/12/20 15:09 Remember Home Meds: Home Meds Metoprolol Succinate [Toprol XL] 100 mg PO DAILY 12/29/14 [History] metFORMIN [Glucophage] 500 mg PO BIDMEALS 12/29/14 [History] Tamsulosin [Flomax] 0.4 mg PO BID 03/16/16 [History] Furosemide [Lasix] 40 mg PO DAILY PRN 04/27/18 [History] Nitroglycerin [Nitrostat] 0.4 mg SL ASDIRECTED PRN 04/27/18 [History] Umeclidinium Brm/Vilanterol Tr [Anoro Ellipta 62.5-25 MCG] 1 puff IH DAILY 04/27/18 [History] atorvaSTATin [Lipitor] 20 mg PO BEDTIME 04/27/18 [History] Digoxin 125 mcg PO DAILY 07/04/18 [History] ramipriL [Ramipril] 5 mg PO DAILY 07/04/18 [History] Clopidogrel [Plavix] 75 mg PO DAILY 07/27/18 [History] Apixaban [Eliquis] 2.5 mg PO BID 09/12/19 [History] Omeprazole 20 mg PO DAILY 09/12/19 [History] Metoprolol Succinate [Toprol XL 50mg] 50 mg PO DAILY 09/03/20 [History] Acetaminophen 325 mg PO BEDTIME 09/12/20 [History] Calcium Carb/Vitamin D3/Vit K1 [Viactiv 650 mg-12.5 Mcg Chew] 1 each PO BID 09/12/20 [History] Calcium Carbonate/Vitamin D3 [Calcium 600-Vit D3 400 Tablet] 1 each PO BID 09/12/20 [History] Megestrol [Megace] 20 mg PO BID 09/12/20 [History] Polymyxin B/Trimethoprim [PolyTrim Ophth Soln] 1 drop EYERT QID 09/12/20 [History] Past Medical History HEENT History: Reports: Cataract, Impaired Vision Cardiovascular History: Reports: Afib, CAD, High Cholesterol, Hypertension, Pacemaker Respiratory History: Reports: SOB Gastrointestinal History: Reports: GERD Genitourinary History: Reports: Chronic Renal Insuffiency, Prostate Disorder, Retention, Urinary, Other (See Below) Other Genitourinary History: bladder spasms, indwelling catheter Musculoskeletal History: Reports: Fracture, Osteoarthritis Neurological History: Reports: TIA Psychiatric History: Reports: None Endocrine/Metabolic History: Reports: Diabetes, Type II Hematologic History: Reports: None Immunologic History: Reports: None Oncologic (Cancer) History: Reports: Prostate, Other (See Below) Other Oncologic History: 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 Dermatologic History: Reports: Other (See Below) Other Dermatologic History: actinic keratosis - Infectious Disease History Infectious Disease History: Reports: Chicken Pox, Measles, Mumps, Shingles - Past Surgical History HEENT Surgical History: Reports: Adenoidectomy, Cataract Surgery, Tonsillectomy Cardiovascular Surgical History: Reports: Coronary Artery Bypass GI Surgical History: Reports: None Male Surgical History: Reports: Other (See Below) Other Male Surgeries/Procedures: cystourethroscopy, nephrolithiasis Endocrine Surgical History: Reports: None Neurological Surgical History: Reports: None Musculoskeletal Surgical History: Reports: None Dermatological Surgical History: Reports: None Social & Family History - Family History Family Medical History: No Pertinent Family History - Tobacco Use Tobacco Use Status *Q: Former Tobacco User Used Tobacco, but Quit: Yes Month/Year Tobacco Last Used: 07/10/2000 Second Hand Smoke Exposure: No - Caffeine Use Caffeine Use: Reports: None Caffeine Use Comment: Drinks lots of coffee - Recreational Drug Use Recreational Drug Use: No - Living Situation & Occupation Occupation: Retired ED ROS GENERAL - Review of Systems Review Of Systems: Comprehensive ROS is negative, except as noted in HPI. ED EXAM, RENAL/ - Physical Exam Exam: See Below Exam Limited By: No Limitations General Appearance: Alert, WD/WN, Mild Distress Eye Exam: Bilateral Eye: EOMI, Normal Inspection, PERRL Ears: Normal External Exam, Normal Canal, Hearing Grossly Normal, Normal TMs Nose: Normal Inspection, Normal Mucosa, No Blood Throat/Mouth: Normal Inspection, Normal Lips, Normal Teeth, Normal Gums, Normal Oropharynx, Normal Voice, No Airway Compromise Head: Atraumatic, Normocephalic Neck: Normal Inspection, Supple, Non-Tender, Full Range of Motion Respiratory/Chest: No Respiratory Distress, Lungs Clear, No Accessory Muscle Use, Chest Non-Tender Cardiovascular: Normal Peripheral Pulses, Regular Rate, Rhythm GI/Abdominal: Normal Bowel Sounds, Soft, Tender (mild tenderness after catheter was replaced and urine drained) (Male) Exam: Deferred Rectal (Males) Exam: Deferred Back Exam: Normal Inspection, Full Range of Motion, NT Neurological: Alert, Oriented, CN II-XII Intact, Normal Cognition, Normal Gait, Normal Reflexes, No Motor/Sensory Deficits Psychiatric: Normal Affect, Normal Mood Skin Exam: Warm, Dry, Intact, Normal Color, No Rash Lymphatic: No Adenopathy Course - Vital Signs Last Recorded V/S: Last Vital Signs Temp 97.1 F 01/29/21 10:43 Pulse 78 01/29/21 10:43 Resp 18 01/29/21 10:43 BP 147/73 H 01/29/21 10:43 Pulse Ox 100 01/29/21 10:43 - Orders/Labs/Meds Orders: Active Orders 24 hr Category Date Time Status Bladder Scan [RC] ASDIRECTED Care 01/29/21 10:05 Active CULTURE URINE [RM] Urgent Lab 01/29/21 11:26 Received UA W/MICROSCOPIC [URIN] Urgent Lab 01/29/21 11:26 Results Labs: Laboratory Tests 01/29/21 Range/Units 11:26 Urine Color Yellow (YELLOW) Urine Appearance Slightly cloudy (CLEAR) Urine pH 8.5 (5.0-9.0) Ur Specific [place] 1.015 (1.005-1.030) Urine Protein 30 H (NEGATIVE) Urine Glucose (UA) Negative (NEGATIVE) Urine Ketones Negative (NEGATIVE) Urine Occult Blood Moderate H (NEGATIVE) Urine Nitrite Positive H (NEGATIVE) Urine Bilirubin Negative (NEGATIVE) Urine Urobilinogen 0.2 (0.2-1.0) mg/dL Ur Leukocyte Esterase Trace H (NEGATIVE) Meds: Medications Discontinued Medications Generic Name Dose Route Start Last Admin Trade Name Beltran PRN Reason Stop Dose Admin Lidocaine HCl 10 ml 01/29/21 10:47 01/29/21 10:51 Lidocaine 2% Jelly 10 Ml Urojet MUCMEM 01/29/21 10:48 10 ml ONETIME ONE Administration Departure - Departure Time of Disposition: 11:48 Disposition: Home, Self-Care 01 Condition: Fair Clinical Impression: Catheter (urine) change required - Discharge Information *PRESCRIPTION DRUG MONITORING PROGRAM REVIEWED*: Not Applicable *COPY OF PRESCRIPTION DRUG MONITORING REPORT IN PATIENT SUZY: Not Applicable Forms: ED Department Discharge Care Plan Goals: The patient was advised of the examination and lab results. The patient's catheter was changed during the visit with a good amount of urine removed. The patient reports he was feeling better after the urine was removed. The patient was encouraged to increase his oral fluid intake. If the patient has any additional symptoms or concerns, the patient should either return to the emergency department or visit his primary care facility. Sepsis Event Note (ED) - Evaluation Sepsis Screening Result: No Definite Risk - Focused Exam Vital Signs: Vital Signs Temp Pulse Resp BP Pulse Ox 01/29/21 10:43 97.1 F 78 18 147/73 H 100 - My Orders Last 24 Hours: My Active Orders 01/29/21 10:05 Bladder Scan [RC] ASDIRECTED 01/29/21 11:26 CULTURE URINE [RM] Urgent UA W/MICROSCOPIC [URIN] Urgent - Assessment/Plan Last 24 Hours: My Active Orders 01/29/21 10:05 Bladder Scan [RC] ASDIRECTED 01/29/21 11:26 CULTURE URINE [RM] Urgent UA W/MICROSCOPIC [URIN] Urgent
== END 2021-01-29 12:20 | disposition home or self-care (01) ==
LOC: DL.ED 09:07
DX: T83.091A Other mechanical complication of indwelling urethral catheter, initial encounter (principal); I48.91 Unspecified atrial fibrillation; I25.10 Atherosclerotic heart disease of native coronary artery without angina pectoris; E78.00 Pure hypercholesterolemia, unspecified; I12.9 Hypertensive chronic kidney disease with stage 1 through stage 4 chronic kidney disease, or unspecified chronic kidney disease; E11.22 Type 2 diabetes mellitus with diabetic chronic kidney disease; N18.9 Chronic kidney disease, unspecified; K21.9 Gastro-esophageal reflux disease without esophagitis; Z95.0 Presence of cardiac pacemaker; Z91.041 Radiographic dye allergy status; Z88.3 Allergy status to other anti-infective agents; Z87.891 Personal history of nicotine dependence
CPT/HCPCS: 51702; 81001; 87086; 99283; 99284-25

== ENCOUNTER 2021-02-13 17:34 | Emergency (ER) | payer MEDICARE, BC ==
[2021-02-13 19:12] VITALS: BP 118/70; PULSE 73
[2021-02-13 19:57] LABS: ANION GAP 17.1 mEq/L (7-13); CHLORIDE,CL 99 mmol/L (98-107); SODIUM,NA 135 mmol/L (136-145)
[2021-02-13] MEDS ORDERED: Levofloxacin 500 MG Tab PO ONE (20:14)
--- NOTE | 2021-02-13 20:22 | EDM.PDOC ---
ED HPI GENERAL MEDICAL PROBLEM - General Chief Complaint: Genitourinary Problem Stated Complaint: BLOOD IN URINE Time Seen by Provider: 02/13/21 19:15 Source of Information: Reports: Patient, Family History Limitations: Reports: No Limitations - History of Present Illness INITIAL COMMENTS - FREE TEXT/NARRATIVE: ED with family , states noticed urine dark colored today and blood i catheter tubing. No difference in activiy, No startin ofn catheter tubing. Recent change last week. Catheter drain per usual. Slikght chills no fever. No nausea or vomiting. Appetite fair. - Related Data Allergies Allergy/AdvReac Type Severity Reaction Status Date / Time Iodinated Contrast Media Allergy Cannot Verified 09/12/20 15:09 [Iodinated Contrast Media - Remember IV Dye] niacin Allergy Cannot Verified 09/12/20 15:09 Remember Home Meds: Home Meds Metoprolol Succinate [Toprol XL] 100 mg PO DAILY 12/29/14 [History] metFORMIN [Glucophage] 500 mg PO BIDMEALS 12/29/14 [History] Tamsulosin [Flomax] 0.4 mg PO BID 03/16/16 [History] Furosemide [Lasix] 40 mg PO DAILY PRN 04/27/18 [History] Nitroglycerin [Nitrostat] 0.4 mg SL ASDIRECTED PRN 04/27/18 [History] Umeclidinium Brm/Vilanterol Tr [Anoro Ellipta 62.5-25 MCG] 1 puff IH DAILY 04/27/18 [History] atorvaSTATin [Lipitor] 20 mg PO BEDTIME 04/27/18 [History] Digoxin 125 mcg PO DAILY 07/04/18 [History] ramipriL [Ramipril] 5 mg PO DAILY 07/04/18 [History] Clopidogrel [Plavix] 75 mg PO DAILY 07/27/18 [History] Apixaban [Eliquis] 2.5 mg PO BID 09/12/19 [History] Omeprazole 20 mg PO DAILY 09/12/19 [History] Metoprolol Succinate [Toprol XL 50mg] 50 mg PO DAILY 09/03/20 [History] Acetaminophen 325 mg PO BEDTIME 09/12/20 [History] Calcium Carb/Vitamin D3/Vit K1 [Viactiv 650 mg-12.5 Mcg Chew] 1 each PO BID 09/12/20 [History] Calcium Carbonate/Vitamin D3 [Calcium 600-Vit D3 400 Tablet] 1 each PO BID 09/12/20 [History] Megestrol [Megace] 20 mg PO BID 09/12/20 [History] Polymyxin B/Trimethoprim [PolyTrim Ophth Soln] 1 drop EYERT QID 09/12/20 [History] Past Medical History HEENT History: Reports: Cataract, Impaired Vision Cardiovascular History: Reports: Afib, CAD, High Cholesterol, Hypertension, Pacemaker Respiratory History: Reports: SOB Gastrointestinal History: Reports: GERD Genitourinary History: Reports: Chronic Renal Insuffiency, Prostate Disorder, Retention, Urinary, Other (See Below) Other Genitourinary History: bladder spasms, indwelling catheter Musculoskeletal History: Reports: Fracture, Osteoarthritis Neurological History: Reports: TIA Psychiatric History: Reports: None Endocrine/Metabolic History: Reports: Diabetes, Type II Hematologic History: Reports: None Immunologic History: Reports: None Oncologic (Cancer) History: Reports: Prostate, Other (See Below) Other Oncologic History: 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 Dermatologic History: Reports: Other (See Below) Other Dermatologic History: actinic keratosis - Infectious Disease History Infectious Disease History: Reports: Chicken Pox, Measles, Mumps, Shingles - Past Surgical History HEENT Surgical History: Reports: Adenoidectomy, Cataract Surgery, Tonsillectomy Cardiovascular Surgical History: Reports: Coronary Artery Bypass GI Surgical History: Reports: None Male Surgical History: Reports: Other (See Below) Other Male Surgeries/Procedures: cystourethroscopy, nephrolithiasis Endocrine Surgical History: Reports: None Neurological Surgical History: Reports: None Musculoskeletal Surgical History: Reports: None Dermatological Surgical History: Reports: None Social & Family History - Family History Family Medical History: No Pertinent Family History - Tobacco Use Tobacco Use Status *Q: Never Tobacco User - Caffeine Use Caffeine Use: Reports: None Caffeine Use Comment: Drinks lots of coffee - Recreational Drug Use Recreational Drug Use: No - Living Situation & Occupation Occupation: Retired ED ROS GENERAL - Review of Systems Review Of Systems: Comprehensive ROS is negative, except as noted in HPI. ED EXAM, GI/ABD - Physical Exam Exam: See Below Exam Limited By: No Limitations Ears: Normal External Exam, Normal Canal Nose: Normal Inspection, Normal Mucosa Throat/Mouth: Normal Inspection, Normal Lips, Normal Voice Head: Atraumatic, Normocephalic Neck: Normal Inspection, Non-Tender, Full Range of Motion Respiratory/Chest: No Respiratory Distress, Lungs Clear, Normal Breath Sounds Cardiovascular: Regular Rate, Rhythm GI/Abdominal Exam: Normal Bowel Sounds Extremities: Normal Inspection Neurological: Alert, Oriented, Slow to Respond Skin Exam: Warm, Dry, Intact, Normal Color Course - Vital Signs Last Recorded V/S: Last Vital Signs Temp 97.3 F 02/13/21 19:08 Pulse 73 02/13/21 19:08 Resp 16 02/13/21 19:08 BP 118/70 02/13/21 19:08 Pulse Ox 100 02/13/21 19:08 - Orders/Labs/Meds Labs: Laboratory Tests 02/13/21 02/13/21 02/13/21 Range/Units 19:15 19:15 19:15 WBC 9.3 (5.0-10.0) 10^3/uL RBC 4.72 (4.6-6.2) 10^6/uL Hgb 13.3 L D (14.0-18.0) g/dL Hct 40.8 (40.0-54.0) % MCV 86.4 (80-100) fL MCH 28.2 (27.0-34.0) pg MCHC 32.6 L (33.0-35.0) g/dL Plt Count 218 (150-450) 10^3/uL Neut % (Auto) 82.3 H (42.2-75.2) % Lymph % (Auto) 10.2 L (20.5-50.1) % [place] % (Auto) 6.6 (2-8) % Eos % (Auto) 0.4 L (1.0-3.0) % Baso % (Auto) 0.5 (0.0-1.0) % Sodium 135 L (136-145) mmol/L Potassium 4.1 (3.5-5.1) mmol/L Chloride 99 (98-107) mmol/L Carbon Dioxide 23 (21-32) mmol/L Anion Gap 17.1 H (7-13) mEq/L BUN 15 (7-18) mg/dL Creatinine 0.72 (0.70-1.30) mg/dL Est Cr Clr Drug Dosing 72.19 mL/min Estimated GFR (MDRD) > 60 BUN/Creatinine Ratio 20.8 (No establ ref range) Glucose 239 H (70-99) mg/dL Lactic Acid 2.7 H* (0.4-2.0) mmol/L Calcium 8.4 L (8.5-10.1) mg/dL Total Bilirubin 0.5 (0.2-1.0) mg/dL AST 12 L (15-37) U/L ALT 21 (16-63) U/L Alkaline Phosphatase 395 H (46-116) U/L Total Protein 6.7 (6.4-8.2) g/dL Albumin 3.3 L (3.4-5.0) g/dL Globulin 3.4 Albumin/Globulin Ratio 0.97 Urine Color (YELLOW) Urine Appearance (CLEAR) Urine pH (5.0-9.0) Ur Specific [place] (1.005-1.030) Urine Protein (NEGATIVE) Urine Glucose (UA) (NEGATIVE) Urine Ketones (NEGATIVE) Urine Occult Blood (NEGATIVE) Urine Nitrite (NEGATIVE) Urine Bilirubin (NEGATIVE) Urine Urobilinogen (0.2-1.0) mg/dL Ur Leukocyte Esterase (NEGATIVE) Urine RBC (0-5) /HPF Urine WBC (0-5/HPF) /HPF Ur Epithelial Cells (NOT SEEN) /HPF Urine Bacteria (0-FEW/HPF) /HPF // Range/Units 19:33 WBC (5.0-10.0) 10^3/uL RBC (4.6-6.2) 10^6/uL Hgb (14.0-18.0) g/dL Hct (40.0-54.0) % MCV (80-100) fL MCH (27.0-34.0) pg MCHC (33.0-35.0) g/dL Plt Count (150-450) 10^3/uL Neut % (Auto) (42.2-75.2) % Lymph % (Auto) (20.5-50.1) % [place] % (Auto) (2-8) % Eos % (Auto) (1.0-3.0) % Baso % (Auto) (0.0-1.0) % Sodium (136-145) mmol/L Potassium (3.5-5.1) mmol/L Chloride (98-107) mmol/L Carbon Dioxide (21-32) mmol/L Anion Gap (7-13) mEq/L BUN (7-18) mg/dL Creatinine (0.70-1.30) mg/dL Est Cr Clr Drug Dosing mL/min Estimated GFR (MDRD) BUN/Creatinine Ratio (No establ ref range) Glucose (70-99) mg/dL Lactic Acid (0.4-2.0) mmol/L Calcium (8.5-10.1) mg/dL Total Bilirubin (0.2-1.0) mg/dL AST (15-37) U/L ALT (16-63) U/L Alkaline Phosphatase (46-116) U/L Total Protein (6.4-8.2) g/dL Albumin (3.4-5.0) g/dL Globulin Albumin/Globulin Ratio Urine Color Red (YELLOW) Urine Appearance Turbid (CLEAR) Urine pH >= 9.0 (5.0-9.0) Ur Specific [place] 1.010 (1.005-1.030) Urine Protein >=300 H (NEGATIVE) Urine Glucose (UA) 250 H (NEGATIVE) Urine Ketones >=160 H (NEGATIVE) Urine Occult Blood Large H (NEGATIVE) Urine Nitrite Positive H (NEGATIVE) Urine Bilirubin Large H (NEGATIVE) Urine Urobilinogen >=8.0 H (0.2-1.0) mg/dL Ur Leukocyte Esterase Large H (NEGATIVE) Urine RBC Packed H (0-5) /HPF Urine WBC 75-100 H (0-5/HPF) /HPF Ur Epithelial Cells Occasional (NOT SEEN) /HPF Urine Bacteria Many H (0-FEW/HPF) /HPF Meds: Medications Discontinued Medications Generic Name Dose Route Start Last Admin Trade Name Darwinq PRN Reason Stop Dose Admin Levofloxacin 500 mg 02/13/21 20:14 02/13/21 20:30 Levofloxacin 500 Mg Tab PO 02/13/21 20:15 500 mg ONETIME ONE Administration Departure - Departure Time of Disposition: 20:19 Disposition: Home, Self-Care 01 Condition: Good Clinical Impression: UTI, Urinary tract infectious disease, May catheter in place - Discharge Information *PRESCRIPTION DRUG MONITORING PROGRAM REVIEWED*: No *COPY OF PRESCRIPTION DRUG MONITORING REPORT IN PATIENT SUZY: No Instructions: Indwelling Urinary Catheter Care, Adult, Urinary Tract Infection, Adult, [id number] Forms: ED Department Discharge Additional Instructions: encourage fluids monitor fever tylenol 500mg every 4 hours as needed for fever/ discomfort, not greater than 3000mg per 24 hours levaquin 250mg daily Clinic follow up Monday Urgent follow up fever , chills weakness confusion vomiting Sepsis Event Note (ED) - Evaluation Sepsis Screening Result: No Definite Risk
== END 2021-02-13 20:39 | disposition home or self-care (01) ==
LOC: DL.ED 17:34
DX: N39.0 Urinary tract infection, site not specified (principal); I48.91 Unspecified atrial fibrillation; I25.10 Atherosclerotic heart disease of native coronary artery without angina pectoris; E78.00 Pure hypercholesterolemia, unspecified; I12.9 Hypertensive chronic kidney disease with stage 1 through stage 4 chronic kidney disease, or unspecified chronic kidney disease; E11.22 Type 2 diabetes mellitus with diabetic chronic kidney disease; N18.9 Chronic kidney disease, unspecified; K21.9 Gastro-esophageal reflux disease without esophagitis; M19.90 Unspecified osteoarthritis, unspecified site; Z79.01 Long term (current) use of anticoagulants; Z79.02 Long term (current) use of antithrombotics/antiplatelets; Z79.84 Long term (current) use of oral hypoglycemic drugs; Z79.899 Other long term (current) drug therapy; Z91.041 Radiographic dye allergy status; Z88.1 Allergy status to other antibiotic agents
CPT/HCPCS: 36415; 80053; 81001; 83605; 85025; 87040; 87086; 87088; 87186; 99283; A9270

== ENCOUNTER 2021-03-23 10:04 | Emergency (ER) | payer MEDICARE, BC ==
[2021-03-23] MEDS ORDERED: Lidocaine 2% Jelly 10 ML Urojet MUCMEM ONE (10:33)
[2021-03-23 11:14] VITALS: PULSE 108
[2021-03-23 11:34] VITALS: BP 106/58
--- NOTE | 2021-03-23 11:36 | EDM.PDOC ---
ED HPI GENERAL MEDICAL PROBLEM - General Stated Complaint: CATHETER BLOCKED SENT FROM HOME HEALTH Time Seen by Provider: 03/23/21 11:15 Source of Information: Reports: Patient History Limitations: Reports: No Limitations - History of Present Illness INITIAL COMMENTS - FREE TEXT/NARRATIVE: This 85 yo male patient was brought to the ED by his daughter due to no urine draining from his catheter. The patient had reduced output last night, but this morning there was no urine draining. The patient reported increased lower abdominal pressure upon presentation. Onset: Today Duration: Getting Worse Location: Reports: Abdomen Quality: Reports: Other Severity: Moderate Improves with: Reports: None Worsens with: Reports: None Associated Symptoms: Reports: No Other Symptoms - Related Data Allergies Allergy/AdvReac Type Severity Reaction Status Date / Time Iodinated Contrast Media Allergy Cannot Verified 03/23/21 11:14 [Iodinated Contrast Media - Remember IV Dye] niacin Allergy Cannot Verified 03/23/21 11:14 Remember Home Meds: Home Meds Metoprolol Succinate [Toprol XL] 100 mg PO DAILY 12/29/14 [History] metFORMIN [Glucophage] 500 mg PO BIDMEALS 12/29/14 [History] Tamsulosin [Flomax] 0.4 mg PO BID 03/16/16 [History] Nitroglycerin [Nitrostat] 0.4 mg SL ASDIRECTED PRN 04/27/18 [History] Umeclidinium Brm/Vilanterol Tr [Anoro Ellipta 62.5-25 MCG] 1 puff IH DAILY 04/27/18 [History] atorvaSTATin [Lipitor] 20 mg PO BEDTIME 04/27/18 [History] Digoxin 125 mcg PO DAILY 07/04/18 [History] ramipriL [Ramipril] 5 mg PO DAILY 07/04/18 [History] Clopidogrel [Plavix] 75 mg PO DAILY 07/27/18 [History] Apixaban [Eliquis] 2.5 mg PO BID 09/12/19 [History] Omeprazole 20 mg PO DAILY 09/12/19 [History] Metoprolol Succinate [Toprol XL 50mg] 50 mg PO DAILY 09/03/20 [History] Acetaminophen 325 mg PO BEDTIME 09/12/20 [History] Calcium Carb/Vitamin D3/Vit K1 [Viactiv 650 mg-12.5 Mcg Chew] 1 each PO BID 09/12/20 [History] Calcium Carbonate/Vitamin D3 [Calcium 600-Vit D3 400 Tablet] 1 each PO BID 09/12/20 [History] Megestrol [Megace] 20 mg PO BID 09/12/20 [History] Polymyxin B/Trimethoprim [PolyTrim Ophth Soln] 1 drop EYERT QID 09/12/20 [History] Abiraterone Acetate [Zytiga] 1,000 mg PO ACBREAKFAST 03/23/21 [History] Past Medical History HEENT History: Reports: Cataract, Impaired Vision Cardiovascular History: Reports: Afib, CAD, High Cholesterol, Hypertension, Pacemaker Respiratory History: Reports: SOB Gastrointestinal History: Reports: GERD Genitourinary History: Reports: Chronic Renal Insuffiency, Prostate Disorder, Retention, Urinary, Other (See Below) Other Genitourinary History: bladder spasms, indwelling catheter Musculoskeletal History: Reports: Fracture, Osteoarthritis Neurological History: Reports: TIA Psychiatric History: Reports: None Endocrine/Metabolic History: Reports: Diabetes, Type II Hematologic History: Reports: None Immunologic History: Reports: None Oncologic (Cancer) History: Reports: Prostate, Other (See Below) Other Oncologic History: 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 Dermatologic History: Reports: Other (See Below) Other Dermatologic History: actinic keratosis - Infectious Disease History Infectious Disease History: Reports: Chicken Pox, Measles, Mumps, Shingles - Past Surgical History HEENT Surgical History: Reports: Adenoidectomy, Cataract Surgery, Tonsillectomy Cardiovascular Surgical History: Reports: Coronary Artery Bypass GI Surgical History: Reports: None Male Surgical History: Reports: Other (See Below) Other Male Surgeries/Procedures: cystourethroscopy, nephrolithiasis Endocrine Surgical History: Reports: None Neurological Surgical History: Reports: None Musculoskeletal Surgical History: Reports: None Dermatological Surgical History: Reports: None Social & Family History - Family History Family Medical History: No Pertinent Family History - Tobacco Use Tobacco Use Status *Q: Never Tobacco User Second Hand Smoke Exposure: No - Caffeine Use Caffeine Use: Reports: Coffee Caffeine Use Comment: Drinks lots of coffee - Recreational Drug Use Recreational Drug Use: No - Living Situation & Occupation Occupation: Retired ED ROS GENERAL - Review of Systems Review Of Systems: Comprehensive ROS is negative, except as noted in HPI. ED EXAM, RENAL/ - Physical Exam Exam: See Below Exam Limited By: No Limitations General Appearance: Alert, WD/WN, Moderate Distress, Thin Eye Exam: Bilateral Eye: EOMI, Normal Inspection, PERRL Ears: Normal External Exam, Normal Canal, Hearing Grossly Normal, Normal TMs Nose: Normal Inspection, Normal Mucosa, No Blood Throat/Mouth: Normal Inspection, Normal Lips, Normal Teeth, Normal Gums, Normal Oropharynx, Normal Voice, No Airway Compromise Head: Atraumatic, Normocephalic Neck: Normal Inspection, Supple, Non-Tender, Full Range of Motion Respiratory/Chest: No Respiratory Distress, Lungs Clear, Normal Breath Sounds, No Accessory Muscle Use, Chest Non-Tender Cardiovascular: Normal Peripheral Pulses, Regular Rate, Rhythm, No Edema, No Gallop, No JVD, No Murmur, No Rub GI/Abdominal: Tender (diffuse lower abdominal tenderness) (Male) Exam: Deferred Rectal (Males) Exam: Deferred Back Exam: Normal Inspection, Full Range of Motion, NT Extremities: Normal Inspection, Normal Range of Motion, Non-Tender, Normal Capillary Refill, No Pedal Edema Neurological: Alert, Oriented, CN II-XII Intact, Normal Cognition, Normal Gait, Normal Reflexes, No Motor/Sensory Deficits Psychiatric: Normal Affect, Normal Mood Skin Exam: Warm, Dry, Intact, Normal Color, No Rash Lymphatic: No Adenopathy Course - Vital Signs Last Recorded V/S: Last Vital Signs Temp 96.5 F L 03/23/21 10:23 Pulse 108 H 03/23/21 10:23 Resp 20 03/23/21 10:23 BP 106/58 L 03/23/21 11:08 Pulse Ox 97 03/23/21 10:23 - Orders/Labs/Meds Orders: Active Orders 24 hr Category Date Time Status Bladder Scan [RC] ASDIRECTED Care 03/23/21 10:05 Ordered CULTURE URINE [RM] Urgent Lab 03/23/21 10:50 Received Labs: Laboratory Tests 03/23/21 Range/Units 10:50 Urine Color Dark yellow (YELLOW) Urine Appearance Cloudy (CLEAR) Urine pH 8.5 (5.0-9.0) Ur Specific [place] 1.020 (1.005-1.030) Urine Protein 100 H (NEGATIVE) Urine Glucose (UA) 500 H (NEGATIVE) Urine Ketones Trace H (NEGATIVE) Urine Occult Blood Large H (NEGATIVE) Urine Nitrite Negative (NEGATIVE) Urine Bilirubin Negative (NEGATIVE) Urine Urobilinogen 0.2 (0.2-1.0) mg/dL Ur Leukocyte Esterase Trace H (NEGATIVE) Urine RBC 30-40 H (0-5) /HPF Urine WBC 0-5 (0-5/HPF) /HPF Ur Epithelial Cells Rare (NOT SEEN) /HPF Urine Bacteria Moderate H (0-FEW/HPF) /HPF Urine Mucus Not seen (NOT SEEN) /LPF Meds: Medications Discontinued Medications Generic Name Dose Route Start Last Admin Trade Name Beltran PRN Reason Stop Dose Admin Lidocaine HCl 10 ml 03/23/21 10:33 03/23/21 10:49 Lidocaine 2% Jelly 10 Ml [employer] MUCMEM 03/23/21 10:34 10 ml ONETIME ONE Administration Departure - Departure Time of Disposition: 11:34 Disposition: Home, Self-Care 01 Condition: Fair Clinical Impression: Catheter (urine) change required, Retention of urine - Discharge Information *PRESCRIPTION DRUG MONITORING PROGRAM REVIEWED*: Not Applicable *COPY OF PRESCRIPTION DRUG MONITORING REPORT IN PATIENT SUZY: Not Applicable Instructions: Acute Urinary Retention, Male, [id number] Forms: ED Department Discharge Care Plan Goals: The patient was advised of the examination and lab results during the visit. The patient's catheter was replaced during the visit with symptom improvement. If the patient has any additional symptoms or concerns, the patient should either return to the emergency department or visit his primary care facility. Sepsis Event Note (ED) - Evaluation Sepsis Screening Result: No Definite Risk - Focused Exam Vital Signs: Vital Signs Temp Pulse Resp BP Pulse Ox 03/23/21 11:08 106/58 L 03/23/21 10:23 96.5 F L 108 H 20 167/101 H 97 - My Orders Last 24 Hours: My Active Orders 03/23/21 10:05 Bladder Scan [RC] ASDIRECTED 03/23/21 10:50 CULTURE URINE [RM] Urgent - Assessment/Plan Last 24 Hours: My Active Orders 03/23/21 10:05 Bladder Scan [RC] ASDIRECTED 03/23/21 10:50 CULTURE URINE [RM] Urgent
== END 2021-03-23 11:44 | disposition home or self-care (01) ==
LOC: DL.ED 10:04
DX: Z46.6 Encounter for fitting and adjustment of urinary device (principal); R33.9 Retention of urine, unspecified; Z88.8 Allergy status to other drugs, medicaments and biological substances; I48.91 Unspecified atrial fibrillation; I25.10 Atherosclerotic heart disease of native coronary artery without angina pectoris; E78.00 Pure hypercholesterolemia, unspecified; K21.9 Gastro-esophageal reflux disease without esophagitis; I12.9 Hypertensive chronic kidney disease with stage 1 through stage 4 chronic kidney disease, or unspecified chronic kidney disease; N18.9 Chronic kidney disease, unspecified; E11.22 Type 2 diabetes mellitus with diabetic chronic kidney disease; M19.90 Unspecified osteoarthritis, unspecified site; Z79.899 Other long term (current) drug therapy; Z79.02 Long term (current) use of antithrombotics/antiplatelets; Z79.01 Long term (current) use of anticoagulants; Z91.041 Radiographic dye allergy status; Z86.73 Personal history of transient ischemic attack (TIA), and cerebral infarction without residual deficits
CPT/HCPCS: 51702; 81001; 87086; 99284-25